=== PATIENT | male | born 1950 | race Caucasian/White ===

== ENCOUNTER → 2017-07-08 | Outpatient (CLI) | payer MEDICARE ==
--- NOTE | 2017-07-08 17:08 | US ---
EXAMINATION TYPE: US gallbladder DATE OF EXAM: 07/08/2017 COMPARISON: US 2016 CLINICAL HISTORY: Right upper quadrant pain R10.11. Abdomen pain and N/V EXAM MEASUREMENTS: Liver Length: 17.2 cm Gallbladder Wall: 0.3 cm CBD: 0.4 cm Right Kidney: 10.8 x 6.1 x 6.4 cm Pancreas: visualized portions wnl, body and tail obscured by overlying midline bowel gas Liver: measures in upper limits of normal at 17.2cm, heterogeneous echotexture without any definite lesions seen at this time, increased echogenicity throughout, increased attenuation Gallbladder: Large amount of shadowing seen in the region of the gallbladder, possible gallbladder f illed with stones Evidence for sonographic Santiago's sign: no CBD: visualized portions wnl, limited by overlying bowel gas Right Kidney: visualized portions wnl, limited by rib shadowing IMPRESSION: 1. Hepatomegaly with moderate fatty infiltration. 2. Cholelithiasis.
== END | disposition home or self-care (01) ==
LOC: RADUSWWP 07:43
PROVIDERS: ATTEND Family Medicine
DX: K80.20 Calculus of gallbladder without cholecystitis without obstruction (principal); K76.0 Fatty (change of) liver, not elsewhere classified; R16.0 Hepatomegaly, not elsewhere classified
CPT/HCPCS: 76705

== ENCOUNTER 2018-02-07 12:54 | Inpatient (IN) | payer MEDICARE ==
[2018-02-07] MEDS ORDERED: METOCLOPRAMIDE 5 MG/ML 2 ML VIAL IVP STA (13:00)
--- NOTE | 2018-02-07 13:06 | ED ---
General Adult HPI - General Chief complaint: Weakness Stated complaint: vomiting Time Seen by Provider: 02/07/18 13:01 Source: patient, EMS, RN notes reviewed Mode of arrival: EMS Limitations: no limitations - History of Present Illness Initial comments: Patient is a pleasant 67-year-old male presenting to the emergency department for some onset of not feeling well. Patient states he feels weak all over and nauseated. Patient denies any pain. Patient denies any dyspnea. No isolated area of weakness. No history of similar symptoms previously. EMS reports patient did have an episode of asystole lasting a proximally 6 seconds. Patient states he never passed out or lost consciousness. No history of similar symptoms previously. Patient feels nauseated on arrival to the emergency department. - Related Data Home Medications Medication Instructions Recorded Confirmed Aspirin 325 mg PO HS 10/24/13 02/07/18 Simvastatin [Zocor] 20 mg PO HS 10/24/13 02/07/18 Vitamin B Complex 1 tab PO DAILY 10/24/13 02/07/18 metFORMIN HCL [Glucophage] 500 mg PO BID 10/24/13 02/07/18 Omalizumab [Xolair] 375 mg SQ Q14D 08/29/14 02/07/18 Cholecalciferol [Vitamin D3] 1,000 unit PO DAILY 04/25/15 02/07/18 Dapagliflozin Propanediol [Farxiga] 10 mg PO DAILY 04/25/15 02/07/18 Garlic 1 tab PO DAILY 04/25/15 02/07/18 Fluticasone/Salmeterol [Advair 1 puff INHALATION RT-DAILY 05/20/17 02/07/18 500-50 Diskus] Losartan/Hydrochlorothiazide 1 tab PO DAILY 05/20/17 02/07/18 [Hyzaar 100-25 Tablet] Montelukast [Singulair] 10 mg PO HS 05/20/17 02/07/18 Testosterone Cypionate 200 mg IM Q14D 05/20/17 02/07/18 [Depo-Testosterone] Albuterol Nebulized [Ventolin 2.5 mg INHALATION RT-Q6H 02/07/18 02/07/18 Nebulized] Albuterol Sulfate [Proventil Hfa] 1 - 2 puff INHALATION RT-Q6H PRN 02/07/18 Atenolol [Tenormin] 50 mg PO BID 02/07/18 02/07/18 Furosemide [Lasix] 40 mg PO BID 02/07/18 02/07/18 Ipratropium Nebulized [Atrovent 0.5 mg INHALATION RT-Q6H 02/07/18 02/07/18 Nebulized] Naproxen Sodium [Aleve] 660 mg PO BID 02/07/18 02/07/18 Potassium Chloride ER [K-Dur 10] 10 meq PO DAILY 02/07/18 02/07/18 Potassium Chloride ER [K-Dur 20] 20 meq PO DAILY 02/07/18 02/07/18 glipiZIDE [Glucotrol] 1.25 mg PO BID 02/07/18 02/07/18 Allergies Allergy/AdvReac Type Severity Reaction Status Date / Time azithromycin Allergy Swelling Verified 02/07/18 13:29 Review of Systems ROS Statement: Those systems with pertinent positive or pertinent negative responses have been documented in the HPI. ROS Other: All systems not noted in ROS Statement are negative. Constitutional: Denies: fever Eyes: Denies: eye pain ENT: Denies: ear pain Respiratory: Denies: cough, dyspnea Cardiovascular: Denies: chest pain Endocrine: Reports: fatigue Gastrointestinal: Reports: nausea, vomiting. Denies: abdominal pain Genitourinary: Denies: dysuria Musculoskeletal: Denies: back pain Skin: Denies: rash Neurological: Reports: weakness (Patient feels weak all over). Denies: headache , confusion Past Medical History Past Medical History: Asthma, Hearing Disorder / Deafness, Hyperlipidemia, Hypertension, Pneumonia Additional Past Medical History / Comment(s): R and L hearing difficulty, emphysema, back pain, arthritis, R ankle fracture. Polycythemia - diagnosed in 2016 History of Any Multi-Drug Resistant Organisms: None Reported Past Surgical History: Heart Catheterization, Orthopedic Surgery, Prostate Surgery Additional Past Surgical History / Comment(s): stress test, L rotator cuff, L and R shoulder surgery Past Anesthesia/Blood Transfusion Reactions: No Reported Reaction Past Psychological History: No Psychological Hx Reported Smoking Status: Former smoker Past Alcohol Use History: Occasional Past Drug Use History: None Reported - Past Family History Father Family Medical History: Cancer, Dementia, Diabetes Mellitus Additional Family Medical History / Comment(s): parkinsons, colon cancer, prostate cancer. Father at age 82 yrs. Mother Family Medical History: Dementia, Diabetes Mellitus Additional Family Medical History / Comment(s): Mother at age 87yrs. Sister(s) Family Medical History: Diabetes Mellitus Brother(s) Family Medical History: Diabetes Mellitus General Exam Limitations: no limitations General appearance: alert, in no apparent distress Head exam: Present: atraumatic Eye exam: Present: normal appearance, PERRL, EOMI ENT exam: Present: normal oropharynx Neck exam: Present: normal inspection Respiratory exam: Present: wheezes (Mild expiratory wheeze) Cardiovascular Exam: Present: regular rate, normal rhythm Expanded Peripheral pulses: 2+: Radial (R), Radial (L), Dorsalis Pedis (R), Dorsalis Pedis (L) GI/Abdominal exam: Present: soft. Absent: tenderness Extremities exam: Present: normal inspection. Absent: pedal edema, calf tenderness Neurological exam: Present: alert, oriented X3, CN II-XII intact. Absent: motor sensory deficit Expanded Cranial nerves: EOM's Intact: Normal Motor strength exam: RUE: 5, LUE: 5, RLE: 5, LLE: 5 Eye Response: (4) open spontaneously Motor Response: (6) obeys commands Verbal Response: (5) oriented Psychiatric exam: Present: normal affect, normal mood Skin exam: Present: diaphoretic Course Vital Signs 02/07/18 02/07/18 02/07/18 12:56 14:00 14:08 Temperature 97.4 F L Pulse Rate 73 78 72 Respiratory 20 Rate Blood Pressure 131/73 O2 Sat by Pulse 93 L Oximetry 02/07/18 14:42 Temperature Pulse Rate 82 Respiratory 15 Rate Blood Pressure 142/81 O2 Sat by Pulse 98 Oximetry EKG Findings - EKG Comments: EKG Findings:: Normal sinus rhythm 73. MA 180. QRS 140. QTc 448. QTC 493. Normal axis. Right bundle branch block. Diffuse areas of T wave inversion. Previous EKG reviewed dated 12/08/2005. Medical Decision Making - Medical Decision Making Patient reevaluated and is starting to feel somewhat better. Patient and family updated on results and plan. Case was discussed in detail with Dr. Owens, who will admit his patient. Cardiology will be consulted for episode of asystole lasting 6 seconds per EMS. Family is concerned for possible seizure. Head CT will be added. - Lab Data Result diagrams: 02/07/18 13:00 02/07/18 13:00 Lab Results 02/07/18 02/07/18 02/07/18 Range/Units 13:00 13:00 13:00 WBC 8.7 (3.8-10.6) k/uL RBC 7.87 H (4.30-5.90) m/uL Hgb 15.3 (13.0-17.5) gm/dL Hct 55.5 H (39.0-53.0) % MCV 70.5 L (80.0-100.0) fL MCH 19.4 L (25.0-35.0) pg MCHC 27.5 L (31.0-37.0) g/dL RDW 19.0 H (11.5-15.5) % Plt Count 192 (150-450) k/uL Neutrophils % 77 % Lymphocytes % 14 % Monocytes % 6 % Eosinophils % 1 % Basophils % 1 % Neutrophils # 6.7 (1.3-7.7) k/uL Lymphocytes # 1.2 (1.0-4.8) k/uL Monocytes # 0.5 (0-1.0) k/uL Eosinophils # 0.1 (0-0.7) k/uL Basophils # 0.1 (0-0.2) k/uL Hypochromasia Marked Poikilocytosis Slight Anisocytosis Slight Microcytosis Marked PT (9.0-12.0) sec INR (<1.2) APTT (22.0-30.0) sec D-Dimer (<0.60) mg/L FEU Sodium 139 (137-145) mmol/L Potassium 3.9 (3.5-5.1) mmol/L Chloride 103 (98-107) mmol/L Carbon Dioxide 23 (22-30) mmol/L Anion Gap 13 mmol/L BUN 21 H (9-20) mg/dL Creatinine 1.10 (0.66-1.25) mg/dL Est GFR (CKD-EPI)AfAm 79 (>60 ml/min/1.73 sqM) Est GFR (CKD-EPI)NonAf 68 (>60 ml/min/1.73 sqM) Glucose 230 H (74-99) mg/dL Calcium 9.4 (8.4-10.2) mg/dL Magnesium 2.2 (1.6-2.3) mg/dL Total Bilirubin 1.4 H (0.2-1.3) mg/dL AST 64 H (17-59) U/L ALT 69 (21-72) U/L Alkaline Phosphatase 51 (38-126) U/L Total Creatine Kinase 57 (55-170) U/L CK-MB (CK-2) 0.9 (0.0-2.4) ng/mL CK-MB (CK-2) Rel Index 1.6 Troponin I <0.012 (0.000-0.034) ng/mL Total Protein 7.0 (6.3-8.2) g/dL Albumin 4.2 (3.5-5.0) g/dL TSH 1.680 (0.465-4.680) mIU/L Free T4 0.89 (0.78-2.19) ng/dL Free T3 pg/mL 4.2 (2.8-5.3) pg/ml 02/07/18 Range/Units 13:47 WBC (3.8-10.6) k/uL RBC (4.30-5.90) m/uL Hgb (13.0-17.5) gm/dL Hct (39.0-53.0) % MCV (80.0-100.0) fL MCH (25.0-35.0) pg MCHC (31.0-37.0) g/dL RDW (11.5-15.5) % Plt Count (150-450) k/uL Neutrophils % % Lymphocytes % % Monocytes % % Eosinophils % % Basophils % % Neutrophils # (1.3-7.7) k/uL Lymphocytes # (1.0-4.8) k/uL Monocytes # (0-1.0) k/uL Eosinophils # (0-0.7) k/uL Basophils # (0-0.2) k/uL Hypochromasia Poikilocytosis Anisocytosis Microcytosis PT 10.3 (9.0-12.0) sec INR 1.1 (<1.2) APTT 20.7 L (22.0-30.0) sec D-Dimer 0.24 (<0.60) mg/L FEU Sodium (137-145) mmol/L Potassium (3.5-5.1) mmol/L Chloride (98-107) mmol/L Carbon Dioxide (22-30) mmol/L Anion Gap mmol/L BUN (9-20) mg/dL Creatinine (0.66-1.25) mg/dL Est GFR (CKD-EPI)AfAm (>60 ml/min/1.73 sqM) Est GFR (CKD-EPI)NonAf (>60 ml/min/1.73 sqM) Glucose (74-99) mg/dL Calcium (8.4-10.2) mg/dL Magnesium (1.6-2.3) mg/dL Total Bilirubin (0.2-1.3) mg/dL AST (17-59) U/L ALT (21-72) U/L Alkaline Phosphatase (38-126) U/L Total Creatine Kinase (55-170) U/L CK-MB (CK-2) (0.0-2.4) ng/mL CK-MB (CK-2) Rel Index Troponin I (0.000-0.034) ng/mL Total Protein (6.3-8.2) g/dL Albumin (3.5-5.0) g/dL TSH (0.465-4.680) mIU/L Free T4 (0.78-2.19) ng/dL Free T3 pg/mL (2.8-5.3) pg/ml - Radiology Data Radiology results: image reviewed (Chest x-ray shows cardiomegaly and some interstitial change.) Disposition Clinical Impression: Asystole Disposition: ADMITTED IP TO THIS [facility] Is patient prescribed a controlled substance at d/c from ED?: No Referrals: Terrell Owens MD [Primary Care Provider] - 1-2 days Decision Time: 15:26
[2018-02-07] MEDS ORDERED: IPRATROPIUM-ALBUTEROL 3 ML NEB INHALATION STA (13:09)
[2018-02-07 13:21] LABS: Anisocytosis Slight; Basophils # (A) 0.1 k/uL (0-0.2); Basophils % (A) 1 %; Eosinophils # (A) 0.1 k/uL (0-0.7); Eosinophils % (A) 1 %; HGB 15.3 gm/dL (13.0-17.5); Hypochromasia Marked; Lymphocytes # (A) 1.2 k/uL (1.0-4.8); Lymphocytes % (A) 14 %; MCH 19.4 pg (25.0-35.0); MCHC 27.5 g/dL (31.0-37.0); MCV 70.5 fL (80.0-100.0); Mean Platelet Volume 6.2; Microcytosis Marked; Monocytes # (A) 0.5 k/uL (0-1.0); Monocytes % (A) 6 %; Neutrophils # (A) 6.7 k/uL (1.3-7.7); Neutrophils % (A) 77 %; Platelet Count 192 k/uL (150-450); Poikilocytosis Slight; WBC 8.7 k/uL (3.8-10.6)
[2018-02-07 13:22] LABS: HCT 55.5 % (39.0-53.0); RBC 7.87 m/uL (4.30-5.90)
[2018-02-07 13:27] LABS: Albumin 4.2 g/dL (3.5-5.0); Calcium 9.4 mg/dL (8.4-10.2); Magnesium 2.2 mg/dL (1.6-2.3); Total Bilirubin 1.4 mg/dL (0.2-1.3)
--- NOTE | 2018-02-07 13:28 | XR ---
EXAMINATION TYPE: XR chest 1V portable DATE OF EXAM: 02/07/2018 HISTORY: dysrhythmia. REFERENCE: Previous study dated 05/05/2015. FINDINGS: The heart is mildly enlarged. There is chronic interstitial change. There is some scarring at the left lung base. I do not see evidence of pneumonia or edema. IMPRESSION: 1. CARDIOMEGALY. 2. INTERSTITIAL CHANGE. 3. CHRONIC SCARRING, LEFT LUNG BASE.
[2018-02-07 13:33] LABS: Potassium 3.9 mmol/L (3.5-5.1)
[2018-02-07 13:44] LABS: T4, Free (Free Thyroxine) 0.89 ng/dL (0.78-2.19)
[2018-02-07 13:45] LABS: Creatine Kinase 57 U/L (55-170)
[2018-02-07 13:58] LABS: Creatine Kinase MB 0.9 ng/mL (0.0-2.4); Troponin I <0.012 ng/mL (0.000-0.034)
[2018-02-07 14:28] LABS: D-Dimer 0.24 mg/L FEU (<0.60); INR 1.1 (<1.2); Prothrombin Time 10.3 sec (9.0-12.0)
[2018-02-07 14:33] LABS: Partial Thromboplastin Time 20.7 sec (22.0-30.0)
[2018-02-07] MEDS ORDERED: NITROGLYCERIN SL TABS 0.4 MG TAB SUBLINGUAL PRN (15:26)
[2018-02-07] MEDS ORDERED: ASPIRIN 81 MG PO STA (15:26)
[2018-02-07 16:42] LABS: Glucose,Whole Blood 180 mg/dL (75-99)
[2018-02-07 18:03] VITALS: BMI 37.8
--- NOTE | 2018-02-07 18:24 | CT ---
EXAMINATION TYPE: CT brain wo con DATE OF EXAM: 02/07/2018 HISTORY: altered mental status CT DLP: 1105 mGycm. Automated Exposure Control for Dose Reduction was Utilized. TECHNIQUE: CT scan of the head is performed without contrast. COMPARISON: None. FINDINGS: There is no acute intracranial hemorrhage or midline shift identified. There is diffuse v entricular and sulcal prominence consistent with diffuse age-related cerebral atrophy. There is low- attenuation in the periventricular white matter consistent with chronic small vessel ischemic change. The globes are intact and the visualized sinuses are clear. IMPRESSION: No acute intracranial hemorrhage or midline shift. There is diffuse age-related cerebra l atrophy and chronic small vessel ischemic change noted.
[2018-02-07 19:47] LABS: Creatine Kinase 55 U/L (55-170)
[2018-02-07 20:00] LABS: Creatine Kinase MB 2.2 ng/mL (0.0-2.4); Troponin I <0.012 ng/mL (0.000-0.034)
[2018-02-07] MEDS: ATORVASTATIN 10 MG TAB PO SCH (20:31)
[2018-02-07] MEDS: ATENOLOL 50 MG TAB PO SCH (20:31)
[2018-02-07] MEDS ORDERED: NAPROXEN 250 MG TAB PO PRN (20:33)
[2018-02-07] MEDS ORDERED: IPRATROPIUM-ALBUTEROL 3 ML NEB INHALATION PRN (20:45)
[2018-02-07 20:56] LABS: Glucose,Whole Blood 170 mg/dL (75-99)
--- NOTE | 2018-02-07 21:50 | HP ---
HISTORY AND PHYSICAL CHIEF COMPLAINT: 67-year-old white male presents with not feeling well with fatigue, nausea, near syncope at home with severe weakness, came in by EMS who thought he had asystole lasting about 6 seconds. No prior similar episodes. Nauseated. HOME MEDICATIONS: Zocor, Glucophage, Farxiga, Advair, Singulair, Hyzaar, Ventolin, Proventil, Tenormin, Lasix, Atrovent, potassium chloride, Glucotrol. ALLERGIES: AZITHROMYCIN. REVIEW OF SYSTEMS: Fourteen point review of systems negative except for weakness, fatigue. PAST MEDICAL HISTORY: Asthma, deafness, dyslipidemia, hypertension, pneumonia, hearing difficulty, emphysema, arthritis, right ankle fracture, polycythemia. PAST SURGICAL HISTORY: Heart catheterization, orthopedic surgery, prostate surgery, left rotator cuff bilaterally, rotator cuff repair. SOCIAL HISTORY: Former smoker. FAMILY HISTORY: Father with cancer, dementia, diabetes mellitus. Mother with dementia, diabetes mellitus. Sister with diabetes mellitus. Brother diabetes mellitus. PHYSICAL EXAMINATION: Blood pressure 142/81, O2 98% on room air. Temp 97.4, O2 93% on room air. Lungs show wheezes, mild expiratory. CARDIOVASCULAR: Regular rate and rhythm. Peripheral pulses 2+ dorsalis pedis, posterior tibial, radial. GI: Soft, nontender. Abdomen is soft, nontender. EXTREMITIES: No cyanosis, clubbing, edema. Cranial nerves appear to be intact. Strength is 5/5 x4 extremities. Skin is diaphoretic. Labs are reviewed. EKG shows sinus rhythm, right bundle branch block. Diffuse T-wave inversion. We will admit the patient. Abnormal EKG. Possible asystole. Head CT scan is normal. Accu-Chek protocol. Hold his metformin. Possible heart catheterization may be needed. Continue on his home medications. Please see further orders. MMODL / IJN: [id number] /
[2018-02-07] MEDS: FUROSEMIDE 40 MG TAB PO SCH (22:22)
[2018-02-07] MEDS: ASPIRIN 325 MG TAB PO SCH (22:22)
[2018-02-07] MEDS: MONTELUKAST 10 MG TAB PO SCH (22:22)
[2018-02-08 01:32] LABS: Cholesterol 103 mg/dL (<200); HDL Cholesterol 28 mg/dL (40-60); LDL Cholesterol,Calculated 32 mg/dL (0-99); Triglycerides 215 mg/dL (<150)
[2018-02-08] MEDS ORDERED: ALBUTEROL NEBULIZED 2.5 MG/3 ML INHALATION SCH (02:00)
[2018-02-08] MEDS ORDERED: IPRATROPIUM 0.5 MG/2.5 ML NEBU INHALATION SCH (02:00)
[2018-02-08 02:08] LABS: Creatine Kinase 75 U/L (55-170)
[2018-02-08 02:21] LABS: Troponin I <0.012 ng/mL (0.000-0.034)
[2018-02-08 02:25] LABS: Creatine Kinase MB 3.8 ng/mL (0.0-2.4)
[2018-02-08 05:59] LABS: Glucose,Whole Blood 133 mg/dL (75-99)
[2018-02-08] MEDS: ASPIRIN 325 MG TAB PO SCH ×2 (07:56→19:50)
[2018-02-08] MEDS: LOSARTAN-HCTZ 50-12.5 MG 1 EACH TAB PO SCH (07:56)
[2018-02-08] MEDS: FUROSEMIDE 40 MG TAB PO SCH ×2 (07:56→19:51)
[2018-02-08] MEDS: POTASSIUM CHLORIDE ER 10 MEQ TAB.ER.PRT PO SCH (07:56)
[2018-02-08] MEDS: ATENOLOL 50 MG TAB PO SCH ×2 (07:56→19:50)
[2018-02-08] MEDS: IPRATROPIUM-ALBUTEROL 3 ML NEB INHALATION SCH ×4 (08:03→19:56)
--- NOTE | 2018-02-08 08:31 | P.CRDCN ---
History of Present Illness Consult date: 02/08/18 Requesting physician: Terrell Owens Reason for Consult (text): This is a 6 there is one EKG in the chart from EMS that shows a normal sinus rhythm with first-degree AV block and right bundle branch block pattern, EKG performed on arrival here shows normal sinus rhythm with first-degree AV block and right bundle branch block pattern. 7-year-old gentleman with known history of hypertension, diabetes, hyperlipidemia, prior history of smoking, COPD, hx of prior stent placement several years ago, follows with Dr Lyman in the officewho presented to the hospital with symptoms of nausea and vomiting with associated weakness, dizziness and lightheadedness. According to the patient, he states that he went to [employer] in the morning, he had a few things to eat after [employer] and went to lie down. Shortly thereafter he awoke with severe nausea and vomiting and felt extremely weak and dizzy. EMS was called, according to the ER report, patient was noted to have an episode of asystole while in the EMS, no documentation of this in the chart is currently unavailable, there is no EMS report or EKG from the EMS. Patient does state however that if he has had 2 similar episodes to this in the past first one being in June, neither of these times. He states he passed out, however felt close to passing out. One EKG from the EMS located in the chart, shows that the patient is in a normal sinus rhythm with first-degree AV block and right bundle branch block pattern, EKG performed in the ER on arrival here shows a normal sinus rhythm with a right bundle branch block pattern and first- degree AV block. Chest x-ray shows cardiomegaly with interstitial change and chronic scarring in the left lung base. CAT scan of the brain does not reveal any acute intracranial hemorrhage or midline shift, there is diffuse age- related cerebral atrophy and chronic small vessel ischemic change noted. Blood pressure on arrival here 130/70 with a heart rate in the 70s, 93% on 2 L of oxygen. White blood cell count 8.7, hemoglobin 15.3, platelet count 192. D- dimer 0.24. Sodium 139, potassium 3.9, BUN 21, creatinine 1.1. Troponins have been negative 3, TSH level is normal. At the time of my examination this morning, patient feels well, denies any nausea or vomiting, no dizziness or lightheadedness. Past Medical History Past Medical History: Asthma, COPD, Diabetes Mellitus, Hearing Disorder / Deafness, Hyperlipidemia, Hypertension, Pneumonia, Prostate Disorder Additional Past Medical History / Comment(s): R and L hearing difficulty, emphysema, back pain, arthritis, R ankle fracture. Polycythemia - diagnosed in 2016 History of Any Multi-Drug Resistant Organisms: None Reported Past Surgical History: Heart Catheterization, Orthopedic Surgery, Prostate Surgery Additional Past Surgical History / Comment(s): stress test, L rotator cuff, L and R shoulder surgery. Prostate cancer Past Anesthesia/Blood Transfusion Reactions: No Reported Reaction Past Psychological History: No Psychological Hx Reported Smoking Status: Former smoker Past Alcohol Use History: Occasional Additional Past Alcohol Use History / Comment(s): Pt started smoking in 1966 and quit in 1990. He was a 3 ppd smoker. Past Drug Use History: None Reported - Past Family History Father Family Medical History: Cancer, Dementia, Diabetes Mellitus Additional Family Medical History / Comment(s): parkinsons, colon cancer, prostate cancer. Father at age 82 yrs. Mother Family Medical History: Dementia, Diabetes Mellitus Additional Family Medical History / Comment(s): Mother at age 87yrs. Sister(s) Family Medical History: Diabetes Mellitus Brother(s) Family Medical History: Diabetes Mellitus Medications and Allergies Home Medications Medication Instructions Recorded Confirmed Type Aspirin 325 mg PO HS 10/24/13 02/07/18 History Simvastatin [Zocor] 20 mg PO HS 10/24/13 02/07/18 History Vitamin B Complex 1 tab PO DAILY 10/24/13 02/07/18 History metFORMIN HCL [Glucophage] 500 mg PO AC-BRKFST 10/24/13 02/07/18 History Omalizumab [Xolair] 375 mg SQ Q14D 08/29/14 02/07/18 History Cholecalciferol [Vitamin D3] 1,000 unit PO DAILY 04/25/15 02/07/18 History Dapagliflozin Propanediol [Farxiga] 10 mg PO DAILY 04/25/15 02/07/18 History Garlic 1 tab PO DAILY 04/25/15 02/07/18 History Fluticasone/Salmeterol [Advair 1 puff INHALATION RT-DAILY 05/20/17 02/07/18 History 500-50 Diskus] Losartan/Hydrochlorothiazide 1 tab PO DAILY 05/20/17 02/07/18 History [Hyzaar 100-25 Tablet] Montelukast [Singulair] 10 mg PO HS 05/20/17 02/07/18 History Testosterone Cypionate 200 mg IM Q14D 05/20/17 02/07/18 History [Depo-Testosterone] Albuterol Nebulized [Ventolin 2.5 mg INHALATION RT-Q6H 02/07/18 02/07/18 History Nebulized] Albuterol Sulfate [Proventil Hfa] 1 - 2 puff INHALATION RT-Q6H PRN 02/07/18 History Atenolol [Tenormin] 50 mg PO BID 02/07/18 02/07/18 History Furosemide [Lasix] 40 mg PO BID 02/07/18 02/07/18 History Ipratropium Nebulized [Atrovent 0.5 mg INHALATION RT-Q6H 02/07/18 02/07/18 History Nebulized] Naproxen Sodium [Aleve] 660 mg PO BID PRN 02/07/18 02/07/18 History Potassium Chloride ER [K-Dur 10] 10 meq PO DAILY 02/07/18 02/07/18 History Potassium Chloride ER [K-Dur 20] 20 meq PO DAILY 02/07/18 02/07/18 History glipiZIDE [Glucotrol] 1.25 mg PO AC-BRKFST 02/07/18 02/07/18 History Allergies Allergy/AdvReac Type Severity Reaction Status Date / Time azithromycin Allergy Swelling Verified 02/07/18 13:29 Physical Exam Vitals: Vital Signs Temp Pulse Pulse Resp BP BP Pulse Ox 02/08/18 07:47 97.4 F L 82 18 126/76 94 L 02/08/18 04:00 97.7 F 73 16 126/73 94 L 02/08/18 00:00 98.0 F 90 18 134/84 93 L 02/07/18 20:20 96.6 F L 95 18 141/87 92 L 02/07/18 15:58 97.5 F L 91 18 140/70 95 02/07/18 15:48 96.6 F L 82 20 96 02/07/18 14:42 82 15 142/81 98 02/07/18 14:08 72 02/07/18 14:00 78 02/07/18 12:56 97.4 F L 73 20 131/73 93 L Intake and Output 02/07/18 02/08/18 02/08/18 22:59 06:59 14:59 Intake Total 20 Output Total 800 300 Balance -780 -300 Intake: IV 20 Invasive Line 1 10 Invasive Line 2 10 Output: Urine 800 300 Other: Voiding Method Urinal Urinal Weight 119.5 kg 115.4 kg PHYSICAL EXAMINATION: GENERAL: 67-year-old gentleman in no acute distress at the time of my examination HEENT: Head is atraumatic, normocephalic. Pupils equal, round. Sclera anicteric. Conjunctiva are clear. Mucous membranes of the mouth are moist. Neck is supple. There is no elevated jugular venous pressure.] bruit is heard. HEART EXAMINATION: Heart S1, S2 normal. No murmur or gallop heard. CHEST EXAMINATION: Lungs are clear to auscultation and precussion. No chest wall tenderness is noted on palpation or with deep breathing. ABDOMEN: Soft, nontender. Bowel sounds are heard. No organomegaly noted. EXTREMITIES: 2+ peripheral pulses with no evidence of peripheral edema and no calf tenderness noted. NEUROLOGIC patient is awake, alert and oriented ?-3. . Results 02/07/18 13:00 02/09/18 10:10 Cardiac Enzymes 02/07/18 02/07/18 02/07/18 Range/Units 13:00 13:00 19:08 AST 64 H (17-59) U/L CK-MB (CK-2) 0.9 2.2 (0.0-2.4) ng/mL Troponin I <0.012 <0.012 (0.000-0.034) ng/mL 02/08/18 Range/Units 01:14 AST (17-59) U/L CK-MB (CK-2) 3.8 H* (0.0-2.4) ng/mL Troponin I <0.012 (0.000-0.034) ng/mL Coagulation 02/07/18 Range/Units 13:47 PT 10.3 (9.0-12.0) sec APTT 20.7 L (22.0-30.0) sec Lipids 02/07/18 Range/Units 13:00 Triglycerides 215 H (<150) mg/dL Cholesterol 103 (<200) mg/dL HDL Cholesterol 28 L (40-60) mg/dL CBC 02/07/18 Range/Units 13:00 WBC 8.7 (3.8-10.6) k/uL RBC 7.87 H (4.30-5.90) m/uL Hgb 15.3 (13.0-17.5) gm/dL Hct 55.5 H (39.0-53.0) % Plt Count 192 (150-450) k/uL Comprehensive Metabolic Panel 02/07/18 Range/Units 13:00 Sodium 139 (137-145) mmol/L Potassium 3.9 (3.5-5.1) mmol/L Chloride 103 (98-107) mmol/L Carbon Dioxide 23 (22-30) mmol/L BUN 21 H (9-20) mg/dL Creatinine 1.10 (0.66-1.25) mg/dL Glucose 230 H (74-99) mg/dL Calcium 9.4 (8.4-10.2) mg/dL AST 64 H (17-59) U/L ALT 69 (21-72) U/L Alkaline Phosphatase 51 (38-126) U/L Total Protein 7.0 (6.3-8.2) g/dL Albumin 4.2 (3.5-5.0) g/dL Current Medications Generic Name Dose Route Start Last Admin Trade Name Freq PRN Reason Stop Dose Admin Albuterol/Ipratropium 3 ml 02/08/18 08:00 02/08/18 08:03 Duoneb 0.5 Mg-3 Mg/3 Ml Soln INHALATION 3 ml RT-QID MEKHI Administration Albuterol/Ipratropium 3 ml 02/07/18 20:45 Duoneb 0.5 Mg-3 Mg/3 Ml Soln INHALATION RT-Q2H PRN Shortness Of Breath Or Wheezing Aspirin 325 mg 02/08/18 09:00 02/08/18 07:56 Aspirin PO 325 mg DAILY MEKHI Administration Aspirin 325 mg 02/07/18 21:00 02/07/18 22:22 Aspirin PO Not Given [facility] Atenolol 50 mg 02/07/18 21:00 02/08/18 07:56 Tenormin PO 50 mg BID MEKHI Administration Atorvastatin Calcium 10 mg 02/07/18 21:00 02/07/18 20:31 Lipitor PO 10 mg HS MEKHI Administration Budesonide/Formoterol Fumarate 2 puff 02/08/18 08:00 Symbicort 160-4.5 Mcg Inhaler INHALATION RT-BID MEKHI Furosemide 40 mg 02/07/18 21:00 02/08/18 07:56 Lasix PO 40 mg BID MEKHI Administration Glipizide 1.25 mg 02/08/18 07:30 Glucotrol PO AC-BRKFST MEKHI HCTZ/Losartan Potassium 2 each 02/08/18 09:00 02/08/18 07:56 Hyzaar 50-12.5 PO 2 each DAILY MEKHI Administration Montelukast Sodium 10 mg 02/07/18 21:00 02/07/18 22:22 Singulair PO 10 mg HS MEKHI Administration Naproxen 500 mg 02/07/18 20:33 Naprosyn PO BID PRN Pain Nitroglycerin 0.4 mg 02/07/18 15:26 Nitrostat SUBLINGUAL Q5M PRN Chest Pain Potassium Chloride 10 meq 02/08/18 09:00 02/08/18 07:56 K-Dur 10 PO 10 meq DAILY MEKHI Administration Intake and Output 02/07/18 02/08/18 02/08/18 22:59 06:59 14:59 Intake Total 20 Output Total 800 300 Balance -780 -300 Intake: IV 20 Invasive Line 1 10 Invasive Line 2 10 Output: Urine 800 300 Other: Voiding Method Urinal Urinal Weight 119.5 kg 115.4 kg 02/07/18 13:00 02/07/18 13:00 EKG Interpretations (text) EKG shows a normal sinus rhythm with first-degree AV block and right bundle branch block pattern Assessment and Plan Plan: Assessment and plan #1 symptoms of nausea and vomiting with associated dizziness and weakness, no clear-cut evidence of syncope, questionable asystole in the ambulance. EKG shows a normal sinus rhythm with right bundle branch block pattern, first- degree AV block. #2 hypertension #3 hyperlipidemia #4 diabetes #5 COPD #6 prior history of smoking Plan We will obtain an echocardiogram with Doppler study. Continue to monitor for any significant bradycardia arrhythmias or pauses. Patient did undergo gallbladder ultrasound in June of this year which did reveal evidence of hepatomegaly with moderate fatty infiltration and cholelithiasis. Mild abnormality in AST and total bilirubin this morning. Need to rule out the possibility of gallbladder causing some of the symptoms. Recommend surgical evaluation. We will also schedule the patient for a Lexiscan stress test tomorrow and continue to monitor. Further recommendations to follow. DNP note has been reviewed, I agree with a documented findings and plan of care. Patient was seen and examined.
[2018-02-08] MEDS ORDERED: NON-FORMULARY DRUG (Dapagliflozin Propanediol [Farxiga] 10 MG) PO SCH (09:00)
--- NOTE | 2018-02-08 09:18 | PN ---
PROGRESS NOTE SUBJECTIVE: This is a 67-year-old white male with 6 second asystole response, who was dizzy, lightheaded for 4-6 hours yesterday after drinking orange juice and eating a chocolate donut, possibly sugar related, but due to prolonged dizziness and weakness, he was admitted to the hospital and monitored. Awaiting Cardiology consult to evaluate for possible cardiac arrhythmia. His pulse today is 80 and regular. CARDIOVASCULAR: S1, S2. Lungs are clear. GI: Soft. INTEGUMENT: Intact. He is feeling a little bit better today, he states back to his normal self. ASSESSMENT: 1. Asystole. 2. Possible arrhythmia. 3. Suspect hyperglycemia with hypoglycemic response. 4. Obesity. 5. Polycythemia. Please see further orders, await Cardiology recommendation. MMODL / IJN: [id number] /
[2018-02-08 11:36] LABS: Glucose,Whole Blood 162 mg/dL (75-99)
[2018-02-08 16:50] LABS: Glucose,Whole Blood 183 mg/dL (75-99)
[2018-02-08 17:51] LABS: Hemoglobin A1C 7.6 % (4.0-6.0)
[2018-02-08] MEDS: ATORVASTATIN 10 MG TAB PO SCH (19:50)
[2018-02-08] MEDS: MONTELUKAST 10 MG TAB PO SCH (19:51)
[2018-02-08 20:43] LABS: Glucose,Whole Blood 164 mg/dL (75-99)
[2018-02-08] MEDS: INSULIN ASPART 100 UNIT/ML 1 ML 10 ML VIAL SQ SCH (21:29)
[2018-02-09 06:07] LABS: Glucose,Whole Blood 131 mg/dL (75-99)
[2018-02-09] MEDS: INSULIN ASPART 100 UNIT/ML 1 ML 10 ML VIAL SQ SCH ×4 (07:23→21:42)
[2018-02-09] MEDS: IPRATROPIUM-ALBUTEROL 3 ML NEB INHALATION SCH ×4 (07:59→20:33)
[2018-02-09] MEDS ORDERED: AMINOPHYLLINE 500 MG/20 ML VIAL IV PRN (09:53)
[2018-02-09] MEDS ORDERED: REGADENOSON 0.4 MG/5 ML SYRINGE IV ONE (09:53)
[2018-02-09 10:35] LABS: Albumin 3.9 g/dL (3.5-5.0); Calcium 9.1 mg/dL (8.4-10.2); Potassium 3.3 mmol/L (3.5-5.1); Total Bilirubin 1.7 mg/dL (0.2-1.3); Total Protein 6.6 g/dL (6.3-8.2)
[2018-02-09 12:25] LABS: Glucose,Whole Blood 148 mg/dL (75-99)
[2018-02-09] MEDS: LOSARTAN-HCTZ 50-12.5 MG 1 EACH TAB PO SCH (12:27)
[2018-02-09] MEDS: FUROSEMIDE 40 MG TAB PO SCH ×2 (12:27→21:42)
[2018-02-09] MEDS: POTASSIUM CHLORIDE ER 10 MEQ TAB.ER.PRT PO SCH (12:27)
[2018-02-09] MEDS: ASPIRIN 325 MG TAB PO SCH ×2 (12:27→21:42)
[2018-02-09] MEDS: ATENOLOL 50 MG TAB PO SCH ×2 (12:27→21:42)
--- NOTE | 2018-02-09 12:38 | P.PN ---
Subjective Progress Note Date: 02/09/18 This is a 6 there is one EKG in the chart from EMS that shows a normal sinus rhythm with first-degree AV block and right bundle branch block pattern, EKG performed on arrival here shows normal sinus rhythm with first-degree AV block and right bundle branch block pattern. 7-year-old gentleman with known history of hypertension, diabetes, hyperlipidemia, prior history of smoking, COPD, who presented to the hospital with symptoms of nausea and vomiting with associated weakness, dizziness and lightheadedness. According to the patient, he states that he went to [employer] in the morning, he had a few things to eat after [employer] and went to lie down. Shortly thereafter he awoke with severe nausea and vomiting and felt extremely weak and dizzy. EMS was called, according to the ER report, patient was noted to have an episode of asystole while in the EMS, no documentation of this in the chart is currently unavailable, there is no EMS report or EKG from the EMS. Patient does state however that if he has had 2 similar episodes to this in the past first one being in June, neither of these times. He states he passed out, however felt close to passing out. One EKG from the EMS located in the chart, shows that the patient is in a normal sinus rhythm with first-degree AV block and right bundle branch block pattern, EKG performed in the ER on arrival here shows a normal sinus rhythm with a right bundle branch block pattern and first- degree AV block. Chest x-ray shows cardiomegaly with interstitial change and chronic scarring in the left lung base. CAT scan of the brain does not reveal any acute intracranial hemorrhage or midline shift, there is diffuse age- related cerebral atrophy and chronic small vessel ischemic change noted. Blood pressure on arrival here 130/70 with a heart rate in the 70s, 93% on 2 L of oxygen. White blood cell count 8.7, hemoglobin 15.3, platelet count 192. D- dimer 0.24. Sodium 139, potassium 3.9, BUN 21, creatinine 1.1. Troponins have been negative 3, TSH level is normal. At the time of my examination this morning, patient feels well, denies any nausea or vomiting, no dizziness or lightheadedness. 02/09/2018 Patient seen and examined this morning, no pauses were noted on the monitor. Blood pressure 134/80 heart rate in the 70s to 80s, and on 2 L of oxygen. Sodium 138, potassium 3.3, BUN 21, creatinine 1.0, total bilirubin 1.7 today up from 1.4 yesterday. AST normal today. Echocardiogram with Doppler study remains pending. Patient also is scheduled today to undergo a Lexiscan stress test. Objective - Vital Signs Vital signs: Vital Signs Temp 97.4 F L 02/09/18 07:43 Pulse 84 02/09/18 08:07 Resp 16 02/09/18 08:00 BP 134/80 02/09/18 07:43 Pulse Ox 92 L 02/09/18 07:43 Intake & Output 02/08/18 02/09/18 02/09/18 18:59 06:59 18:59 Intake Total 476 Output Total 1550 Balance 476 -1550 Weight 116.6 kg 116.573 kg Intake: Oral 476 Output: Urine 1550 Other: Voiding Method Urinal Urinal Urinal # Voids 1 1 - Exam PHYSICAL EXAMINATION: GENERAL: 67-year-old gentleman in no acute distress at the time of my examination HEENT: Head is atraumatic, normocephalic. Pupils equal, round. Sclera anicteric. Conjunctiva are clear. Mucous membranes of the mouth are moist. Neck is supple. There is no elevated jugular venous pressure.] bruit is heard. HEART EXAMINATION: Heart S1, S2 normal. No murmur or gallop heard. CHEST EXAMINATION: Lungs are clear to auscultation and precussion. No chest wall tenderness is noted on palpation or with deep breathing. ABDOMEN: Soft, nontender. Bowel sounds are heard. No organomegaly noted. EXTREMITIES: 2+ peripheral pulses with no evidence of peripheral edema and no calf tenderness noted. NEUROLOGIC patient is awake, alert and oriented ?-3. - Labs CBC & Chem 7: 02/07/18 13:00 02/09/18 10:10 Labs: Abnormal Lab Results - Last 24 Hours (Table) 02/07/18 02/08/18 02/08/18 Range/Units 13:00 16:48 20:42 Potassium (3.5-5.1) mmol/L BUN (9-20) mg/dL Glucose (74-99) mg/dL POC Glucose (mg/dL) 183 H 164 H (75-99) mg/dL Hemoglobin A1c 7.6 H (4.0-6.0) % Total Bilirubin (0.2-1.3) mg/dL 02/09/18 02/09/18 02/09/18 Range/Units 06:05 10:10 12:24 Potassium 3.3 L (3.5-5.1) mmol/L BUN 21 H (9-20) mg/dL Glucose 157 H (74-99) mg/dL POC Glucose (mg/dL) 131 H 148 H (75-99) mg/dL Hemoglobin A1c (4.0-6.0) % Total Bilirubin 1.7 H (0.2-1.3) mg/dL Assessment and Plan Plan: Assessment and plan #1 symptoms of nausea and vomiting with associated dizziness and weakness, no clear-cut evidence of syncope, questionable asystole in the ambulance. EKG shows a normal sinus rhythm with right bundle branch block pattern, first- degree AV block. #2 hypertension #3 hyperlipidemia #4 diabetes #5 COPD #6 prior history of smoking Plan We will review echocardiogram with Doppler study. Continue to monitor for any significant bradycardia arrhythmias or pauses. Patient did undergo gallbladder ultrasound in June of this year which did reveal evidence of hepatomegaly with moderate fatty infiltration and cholelithiasis. We will also review the patient's results of Lexiscan stress test of today. If the echo and the stress test are normal, and patient has been evaluated for abnormal bilirubin, on discharge we recommend patient have a 30 day event monitor. DNP note has been reviewed, I agree with a documented findings and plan of care. Patient was seen and examined.
--- NOTE | 2018-02-09 12:51 | NM ---
EXAMINATION TYPE: NM stress lexiscan cardiolite DATE OF EXAM: 02/09/2018 COMPARISON: Chest x-ray 02/07/2018 HISTORY: Chest pain, Dysrhythmia, cardiomegaly TECHNIQUE: After the intravenous administration of 10.97 mCi Tc 99m Sestamibi - Cardiolite resting S PECT images acquired 45 minutes post injection. The patient received 0.4mg Lexiscan, 25.1 mCi Tc 99m Sestamibi - Stress images obtained [address] injection FINDINGS: Review of stress and rest SPECT images demonstrates decreased radio pharmaceutical uptake along the i nferolateral left ventricle on stress as compared to rest images. Gated analysis shows normal wall mo tion with an estimated left ventricular ejection fraction of 55 %. IMPRESSION: Pharmacologically induced left ventricular myocardial ischemia.
--- NOTE | 2018-02-09 12:54 | P.GSCN ---
History of Present Illness Consult date: 02/09/18 Reason for Consult: Gallbladder History of present illness: 67-year-old presented to the emergency room for generalized weakness nausea. Patient stated the sensation has been ongoing for the past several weeks getting more symptomatic. Patient activated the EMS system EMS report indicates patient had an episode of asystole lasting about 6 seconds patient denied passing out or losing consciousness patient denied having any similar episodes . Patient stated he felt a nausea sensation patient is denying any abdominal pain. Patient states he is bothered sometimes by a heartburn sensation takes [id number] [place] which does offer relief. Currently patients being followed by cardiology service just returned from having a Lexiscan results are pending Review of Systems Essentially unremarkable except as mentioned in the present illness Past Medical History Past Medical History: Asthma, COPD, Diabetes Mellitus, Hearing Disorder / Deafness, Hyperlipidemia, Hypertension, Pneumonia, Prostate Disorder Additional Past Medical History / Comment(s): R and L hearing difficulty, emphysema, back pain, arthritis, R ankle fracture. Polycythemia - diagnosed in 2015 History of Any Multi-Drug Resistant Organisms: None Reported Past Surgical History: Heart Catheterization, Orthopedic Surgery, Prostate Surgery Additional Past Surgical History / Comment(s): stress test, L rotator cuff, L and R shoulder surgery. Prostate cancer Past Anesthesia/Blood Transfusion Reactions: No Reported Reaction Past Psychological History: No Psychological Hx Reported Smoking Status: Former smoker Past Alcohol Use History: Occasional Additional Past Alcohol Use History / Comment(s): Pt started smoking in 1966 and quit in 1990. He was a 3 ppd smoker. Past Drug Use History: None Reported - Past Family History Father Family Medical History: Cancer, Dementia, Diabetes Mellitus Additional Family Medical History / Comment(s): parkinsons, colon cancer, prostate cancer. Father at age 82 yrs. Mother Family Medical History: Dementia, Diabetes Mellitus Additional Family Medical History / Comment(s): Mother at age 87yrs. Sister(s) Family Medical History: Diabetes Mellitus Brother(s) Family Medical History: Diabetes Mellitus Medications and Allergies Home Medications Medication Instructions Recorded Confirmed Type Aspirin 325 mg PO HS 10/24/13 02/07/18 History Simvastatin [Zocor] 20 mg PO HS 10/24/13 02/07/18 History Vitamin B Complex 1 tab PO DAILY 10/24/13 02/07/18 History metFORMIN HCL [Glucophage] 500 mg PO AC-BRKFST 10/24/13 02/07/18 History Omalizumab [Xolair] 375 mg SQ Q14D 08/29/14 02/07/18 History Cholecalciferol [Vitamin D3] 1,000 unit PO DAILY 04/25/15 02/07/18 History Dapagliflozin Propanediol [Farxiga] 10 mg PO DAILY 04/25/15 02/07/18 History Garlic 1 tab PO DAILY 04/25/15 02/07/18 History Fluticasone/Salmeterol [Advair 1 puff INHALATION RT-DAILY 05/20/17 02/07/18 History 500-50 Diskus] Losartan/Hydrochlorothiazide 1 tab PO DAILY 05/20/17 02/07/18 History [Hyzaar 100-25 Tablet] Montelukast [Singulair] 10 mg PO HS 05/20/17 02/07/18 History Testosterone Cypionate 200 mg IM Q14D 05/20/17 02/07/18 History [Depo-Testosterone] Albuterol Nebulized [Ventolin 2.5 mg INHALATION RT-Q6H 02/07/18 02/07/18 History Nebulized] Albuterol Sulfate [Proventil Hfa] 1 - 2 puff INHALATION RT-Q6H PRN 02/07/18 History Atenolol [Tenormin] 50 mg PO BID 02/07/18 02/07/18 History Furosemide [Lasix] 40 mg PO BID 02/07/18 02/07/18 History Ipratropium Nebulized [Atrovent 0.5 mg INHALATION RT-Q6H 02/07/18 02/07/18 History Nebulized] Naproxen Sodium [Aleve] 660 mg PO BID PRN 02/07/18 02/07/18 History Potassium Chloride ER [K-Dur 10] 10 meq PO DAILY 02/07/18 02/07/18 History Potassium Chloride ER [K-Dur 20] 20 meq PO DAILY 02/07/18 02/07/18 History glipiZIDE [Glucotrol] 1.25 mg PO AC-BRKFST 02/07/18 02/07/18 History Allergies Allergy/AdvReac Type Severity Reaction Status Date / Time azithromycin Allergy Swelling Verified 02/07/18 13:29 Surgical - Exam Vital Signs Temp Pulse Resp BP Pulse Ox 97.4 F L 73 20 131/73 93 L 02/07/18 12:56 02/07/18 12:56 02/07/18 12:56 02/07/18 12:56 02/07/18 12:56 GENERAL APPEARANCE: patient is alert, oriented x 3 , in no acute distress. VITAL SIGNS: Reviewed HEENT: Head is normocephalic and atraumatic. Pupils are equal and reactive. The nares are patent. Oropharynx is clear without lesions. NECK: Supple without lymphadenopathy. Traches midline. HEART: S1, S2. Regular rate and rhythm. No murmur monitor sinus denies chest pain when questioning LUNGS: No crackles or wheezes are heard. On room air no shortness of breath ABDOMEN: Soft, nontender, nondistended with good bowel sounds. No peritoneal signs. No palpable organomegaly or masses. EXTREMITIES: Normal skin color and turgor. No cyanosis, rash, ulceration, clubbing or edema. Radial pedal pulses are 2/4 bilaterally. NEUROLOGICAL: No focal deficits. Strength and sensation are grossly intact. Results - Labs 02/07/18 13:00 02/09/18 10:10 Abnormal Lab Results - Last 24 Hours (Table) 02/07/18 02/08/18 02/08/18 Range/Units 13:00 16:48 20:42 Potassium (3.5-5.1) mmol/L BUN (9-20) mg/dL Glucose (74-99) mg/dL POC Glucose (mg/dL) 183 H 164 H (75-99) mg/dL Hemoglobin A1c 7.6 H (4.0-6.0) % Total Bilirubin (0.2-1.3) mg/dL 02/09/18 02/09/18 02/09/18 Range/Units 06:05 10:10 12:24 Potassium 3.3 L (3.5-5.1) mmol/L BUN 21 H (9-20) mg/dL Glucose 157 H (74-99) mg/dL POC Glucose (mg/dL) 131 H 148 H (75-99) mg/dL Hemoglobin A1c (4.0-6.0) % Total Bilirubin 1.7 H (0.2-1.3) mg/dL Diabetes panel 02/07/18 02/09/18 Range/Units 13:00 10:10 Sodium 138 (137-145) mmol/L Potassium 3.3 L (3.5-5.1) mmol/L Chloride 99 (98-107) mmol/L Carbon Dioxide 30 (22-30) mmol/L BUN 21 H (9-20) mg/dL Creatinine 1.06 (0.66-1.25) mg/dL Glucose 157 H (74-99) mg/dL Hemoglobin A1c 7.6 H (4.0-6.0) % Calcium 9.1 (8.4-10.2) mg/dL AST 47 (17-59) U/L ALT 65 (21-72) U/L Alkaline Phosphatase 49 (38-126) U/L Total Protein 6.6 (6.3-8.2) g/dL Albumin 3.9 (3.5-5.0) g/dL Calcium panel 02/09/18 Range/Units 10:10 Calcium 9.1 (8.4-10.2) mg/dL Albumin 3.9 (3.5-5.0) g/dL Pituitary panel 02/09/18 Range/Units 10:10 Sodium 138 (137-145) mmol/L Potassium 3.3 L (3.5-5.1) mmol/L Chloride 99 (98-107) mmol/L Carbon Dioxide 30 (22-30) mmol/L BUN 21 H (9-20) mg/dL Creatinine 1.06 (0.66-1.25) mg/dL Glucose 157 H (74-99) mg/dL Calcium 9.1 (8.4-10.2) mg/dL Adrenal panel 02/09/18 Range/Units 10:10 Sodium 138 (137-145) mmol/L Potassium 3.3 L (3.5-5.1) mmol/L Chloride 99 (98-107) mmol/L Carbon Dioxide 30 (22-30) mmol/L BUN 21 H (9-20) mg/dL Creatinine 1.06 (0.66-1.25) mg/dL Glucose 157 H (74-99) mg/dL Calcium 9.1 (8.4-10.2) mg/dL Total Bilirubin 1.7 H (0.2-1.3) mg/dL AST 47 (17-59) U/L ALT 65 (21-72) U/L Alkaline Phosphatase 49 (38-126) U/L Total Protein 6.6 (6.3-8.2) g/dL Albumin 3.9 (3.5-5.0) g/dL Assessment and Plan Assessment: Impression Prior to arrival possible episode per EMS of [place] Ultrasound done June 2017 cholelithiasis large amount of shadowing seen in the region of the gallbladder possible gallbladder filled with stones Hypertension Symptomatic nausea vomiting dizziness lightheadedness no clear cut evidence of a syncopal episode Plan Patient could be followed in an outpatient setting next week for the gallstones gallbladder once patient cardiology status stable Pain control IV hydration Will follow with you From a surgical perspective is felt to be medically stable to be discharged defer to the attending to the timing and cardiology's workup pending No evidence of an acute surgical abdomen at this time Plan for outpatient follow-up for possible lap cholecystectomy when medically cleared Surgical consultation note dictated for Dr. sims The above impression and plan of care have been discussed and directed by signing physician. Maria Del Rosario Real nurse practitioner acting as scribe for signing physician.
--- NOTE | 2018-02-09 13:41 | EST ---
EXERCISE STRESS DATE OF SERVICE: 02/09/2018 AGE: 67 SEX: Male HT: 70" WT: 257 pounds PROTOCOL: Lexiscan Cardiolite STAGE: DURATION OF EXERCISE: HEART RATE REST: 81 BLOOD PRESSURE REST: 207/92 MAXIMUM HEART RATE ACHIEVED: 98 MAXIMUM BLOOD PRESSURE: 207/92 85% MPHR: 100% MPHR: METS: INDICATIONS: Shortness of breath. CLINICAL INFORMATION: Baseline rhythm is sinus mechanism, rate of 81, right bundle branch block. Baseline blood pressure 207/92 mmHg. Patient received injection of Lexiscan. Electrocardiographic monitoring revealed no evidence of diagnostic ischemic ST deviation. Cardiolite was injected per protocol. CONCLUSION: 1. Nondiagnostic electrocardiographic stress testing. 2. Nuclear images will be reported separately. MMODL / IJN: [id number] /
[2018-02-09] MEDS ORDERED: ALPRAZolam 0.25 MG TAB PO PRN (15:13)
[2018-02-09] MEDS ORDERED: SODIUM CHLORIDE 0.9% 1,000 ML in EMPTY BAG 1 BAG IV ONE (15:13)
[2018-02-09] MEDS ORDERED: ALPRAZolam 0.5 MG TAB PO PRN (15:13)
[2018-02-09] MEDS ORDERED: ASPIRIN 325 MG TAB PO STA (15:13)
[2018-02-09] MEDS ORDERED: NITROGLYCERIN SL TABS 0.4 MG TAB SUBLINGUAL PRN (15:13)
[2018-02-09] MEDS ORDERED: ATORVASTATIN 80 MG TAB PO STA (15:13)
[2018-02-09] MEDS ORDERED: Potassium Replacement Protocol 1 EACH MISC MISCELLANE PRN (15:43)
[2018-02-09] MEDS: SYMBICORT 160-4.5 MCG INHALER INHALATION SCH (16:48)
[2018-02-09 17:05] LABS: Glucose,Whole Blood 174 mg/dL (75-99)
[2018-02-09] MEDS: POTASSIUM CHLORIDE ER 20 MEQ TAB.ER PO SCH ×2 (17:24→19:02)
[2018-02-09 20:51] LABS: Glucose,Whole Blood 149 mg/dL (75-99)
[2018-02-09] MEDS: MONTELUKAST 10 MG TAB PO SCH (21:42)
[2018-02-09] MEDS: ATORVASTATIN 10 MG TAB PO SCH (21:43)
--- NOTE | 2018-02-09 23:20 | PN ---
PROGRESS NOTE SUBJECTIVE: This is a 67-year-old white male admitted with asystole and surgery consult cholecystolithiasis. Will possibly need surgery as an outpatient. His stress test today showed inferolateral ischemia changed from rest and exercise. He will possibly need a heart catheterization prior to going home. He has polycythemia and obesity. Wait for possible cardiac catheterization or cardiac recommendations prior to being discharged home on an event monitor but I suspect he may need a heart catheterization. MMODL / IJN: [id number] /
[2018-02-10 06:04] LABS: Glucose,Whole Blood 155 mg/dL (75-99)
[2018-02-10] MEDS: POTASSIUM CHLORIDE ER 10 MEQ TAB.ER.PRT PO SCH (06:13)
[2018-02-10] MEDS: ATENOLOL 50 MG TAB PO SCH ×2 (06:13→20:20)
[2018-02-10] MEDS: INSULIN ASPART 100 UNIT/ML 1 ML 10 ML VIAL SQ SCH ×4 (06:13→20:20)
[2018-02-10 06:43] LABS: Albumin 3.6 g/dL (3.5-5.0); Potassium 3.4 mmol/L (3.5-5.1); Total Protein 6.2 g/dL (6.3-8.2)
[2018-02-10 06:44] LABS: Calcium 8.8 mg/dL (8.4-10.2); Total Bilirubin 1.8 mg/dL (0.2-1.3)
[2018-02-10] MEDS ORDERED: ASPIRIN 325 MG TAB PO STA (06:59)
[2018-02-10] MEDS: IPRATROPIUM-ALBUTEROL 3 ML NEB INHALATION SCH ×4 (07:04→19:42)
[2018-02-10] MEDS: SYMBICORT 160-4.5 MCG INHALER INHALATION SCH ×2 (07:04→19:42)
[2018-02-10] MEDS ORDERED: IV FLUID CONTINUATION 700 ML IV ONE (07:25)
[2018-02-10] MEDS ORDERED: fentaNYL (PF) 50 MCG/ML 2 ML AMP IV ONE (07:36)
[2018-02-10] MEDS ORDERED: MIDAZOLAM 2 MG/2 ML VIAL IVP ONE (07:36)
[2018-02-10] MEDS ORDERED: LIDOCAINE 1% INJ 10MG/ML (20 ML MDV) SQ ONE (07:38)
[2018-02-10] MEDS ORDERED: IOPAMIDOL-370 125ML BTL INJ ONE (07:49)
[2018-02-10] MEDS ORDERED: RX INFO: IV CONTRAST WAS GIVEN 1 EACH MISC MISCELLANE PRN (07:56)
[2018-02-10] MEDS: FUROSEMIDE 40 MG TAB PO SCH ×2 (08:30→20:20)
[2018-02-10] MEDS: LOSARTAN-HCTZ 50-12.5 MG 1 EACH TAB PO SCH (08:30)
[2018-02-10] MEDS: SODIUM CHLORIDE 0.9% 1,000 ML IV SCH (08:31)
--- NOTE | 2018-02-10 08:42 | CC ---
CARDIAC CATHETERIZATION REPORT INDICATION: Asystole with abnormal stress test showing ischemia in the inferolateral wall. PROCEDURE NOTE: After obtaining informed consent, left heart catheterization, coronary angiogram are performed via the right femoral artery using standard [place] catheters. The patient tolerated the procedure well without any obvious immediate complications. A femoral angiogram was performed and Angio-Seal was deployed for hemostasis. Patient received moderate conscious sedation. Total sedation time was 14 minutes. FINDINGS: 1. HEMODYNAMICS: Left ventricular end-diastolic pressure is 12 to 14 mm. There is no significant gradient across the aortic valve. 2. LEFT VENTRICULOGRAM: Left ventriculogram is not performed. 3. ANGIOGRAPHIC DATA: 4. Left main coronary artery: Left main coronary artery is a normal-sized vessel and is free of stenosis. Divides into left anterior descending coronary artery and circumflex coronary artery. LAD shows mild nonobstructive disease as does the circumflex. Right coronary artery is a large dominant vessel that shows mild nonobstructive disease involving both PDA and PLV. CONCLUSIONS: 1. Mild nonobstructive coronary artery disease. 2. Probably false-positive stress test. MMODL / IJN: [id number] /
[2018-02-10 11:53] LABS: Glucose,Whole Blood 155 mg/dL (75-99)
--- NOTE | 2018-02-10 12:23 | P.PN ---
<Maria Del Rosario Real - Last Filed: 02/10/18 12:19> Subjective Progress Note Date: 02/10/18 67-year-old just returned from having a heart catheterization which reportedly showed no acute findings no intervention. Patient states the abdominal pain is resolved and is anxious to be discharged. Abdomen soft no reports the nausea vomiting Objective - Vital Signs Vital signs: Vital Signs Temp 97.0 F L 02/10/18 00:00 Pulse 75 02/10/18 11:18 Resp 16 02/10/18 11:18 BP 129/66 02/10/18 11:15 Pulse Ox 93 L 02/10/18 11:15 Intake & Output 02/09/18 02/10/18 02/10/18 18:59 06:59 18:59 Intake Total 1160 200 Output Total 580 Balance 580 200 Weight 116.573 kg 115.3 kg Intake: IV 1160 100 Sodium Chloride 0.9% 1, 1160 000 ml In Empty Bag 1 bag @ 1 ML/KG/HR 116.57 mls/ hr IV .Q8H35M ONE Rx#: [id number] Oral 100 Output: Urine 580 Other: Voiding Method Urinal Urinal Urinal - Exam Physical exam 67-year-old resting in bed just returned from having heart catheterization appears in no acute distress Lungs anterior clear Heart S1-S2 audible regular Abdomen soft obese nontender states no abdominal pain reports no nausea vomiting tolerating diet Extremities no edema - Labs CBC & Chem 7: 02/07/18 13:00 02/10/18 06:02 Labs: Abnormal Lab Results - Last 24 Hours (Table) 02/09/18 02/09/18 02/09/18 Range/Units 12:24 16:50 20:49 Potassium (3.5-5.1) mmol/L Glucose (74-99) mg/dL POC Glucose (mg/dL) 148 H 174 H 149 H (75-99) mg/dL Total Bilirubin (0.2-1.3) mg/dL Total Protein (6.3-8.2) g/dL 02/10/18 02/10/18 02/10/18 Range/Units 06:02 06:03 11:35 Potassium 3.4 L (3.5-5.1) mmol/L Glucose 150 H (74-99) mg/dL POC Glucose (mg/dL) 155 H 155 H (75-99) mg/dL Total Bilirubin 1.8 H (0.2-1.3) mg/dL Total Protein 6.2 L (6.3-8.2) g/dL Assessment and Plan Assessment: Impression Prior to arrival possible episode per EMS of [place] Ultrasound done June 2017 cholelithiasis large amount of shadowing seen in the region of the gallbladder possible gallbladder filled with stones Hypertension Symptomatic nausea vomiting dizziness lightheadedness no clear cut evidence of a syncopal episode Status post left heart catheterization no acute findings Plan Patient could be followed in an outpatient setting next week for the gallstones gallbladder once patient cardiology status stable Pain control Plan for outpatient follow-up for possible lap cholecystectomy when medically cleared We'll sign off re-eval as needed see patient in the outpatient setting From a surgical perspective is felt to be appropriate to be discharged defer to the timing to the attending Progress note dictated for rounding on behalf dr sims The above impression and plan of care have been discussed and directed by signing physician. Maria Del Rosario Real nurse practitioner acting as scribe for signing physician. <Mina Mancuso - Last Filed: 02/10/18 22:17> Objective - Vital Signs Vital signs: Vital Signs Temp 97.3 F L 02/10/18 19:58 Pulse 87 02/10/18 19:58 Resp 18 02/10/18 19:58 BP 135/72 02/10/18 19:58 Pulse Ox 90 L 02/10/18 19:58 Intake & Output 02/10/18 02/10/18 02/11/18 06:59 18:59 06:59 Intake Total 1160 200 Output Total 580 425 Balance 580 200 -425 Weight 115.3 kg Intake: IV 1160 100 Sodium Chloride 0.9% 1, 1160 000 ml In Empty Bag 1 bag @ 1 ML/KG/HR 116.57 mls/ hr IV .Q8H35M ONE Rx#: [id number] Oral 100 Output: Urine 580 425 Other: Voiding Method Urinal Urinal - Labs CBC & Chem 7: 02/07/18 13:00 02/10/18 06:02 Labs: Abnormal Lab Results - Last 24 Hours (Table) 02/10/18 02/10/18 02/10/18 Range/Units 06:02 06:03 11:35 Potassium 3.4 L (3.5-5.1) mmol/L Glucose 150 H (74-99) mg/dL POC Glucose (mg/dL) 155 H 155 H (75-99) mg/dL Total Bilirubin 1.8 H (0.2-1.3) mg/dL Total Protein 6.2 L (6.3-8.2) g/dL 02/10/18 02/10/18 Range/Units 16:00 20:17 Potassium (3.5-5.1) mmol/L Glucose (74-99) mg/dL POC Glucose (mg/dL) 156 H 196 H (75-99) mg/dL Total Bilirubin (0.2-1.3) mg/dL Total Protein (6.3-8.2) g/dL Assessment and Plan Assessment: As above. Patient doing well. Denies abdominal pain. Hoping to go home today. Will follow up with Dr. sims in 1 week. We'll sign off at this point.
[2018-02-10 16:08] LABS: Glucose,Whole Blood 156 mg/dL (75-99)
[2018-02-10 20:18] LABS: Glucose,Whole Blood 196 mg/dL (75-99)
[2018-02-10] MEDS: MONTELUKAST 10 MG TAB PO SCH (20:20)
[2018-02-10] MEDS: ATORVASTATIN 10 MG TAB PO SCH (20:20)
[2018-02-10] MEDS: ASPIRIN 325 MG TAB PO SCH (20:21)
--- NOTE | 2018-02-10 21:21 | PN ---
PROGRESS NOTE SUBJECTIVE: A 67-year-old white male with a normal heart catheterization and has history of polycythemia, obstructive sleep apnea, hypertension, is going to have a loop recorder versus a Holter monitor placed before discharge, that is why his discharge was held. His potassium is a little bit low at 2.4, which will be replaced. Sugars are mid 100s. Awaiting Cardiology to place a monitor on him, then I can send him home. ASSESSMENT: 1. Atypical chest pain. 2. Polycythemia. 3. Sleep apnea. 4. Allergic asthma. 5. Diabetes mellitus. 6. Obesity could. 7. Cholecystitis. 8. Cholelithiasis. Will need to get gallbladder surgery as an outpatient after being cleared by Cardiology with a Holter monitor. Continue current home medicines. MMODL / IJN: [id number] /
[2018-02-11] MEDS: SODIUM CHLORIDE 0.9% 1,000 ML IV SCH ×2 (00:59→13:56)
[2018-02-11 05:50] LABS: Glucose,Whole Blood 130 mg/dL (75-99)
[2018-02-11] MEDS: INSULIN ASPART 100 UNIT/ML 1 ML 10 ML VIAL SQ SCH ×2 (05:52→13:56)
[2018-02-11] MEDS: SYMBICORT 160-4.5 MCG INHALER INHALATION SCH (09:01)
[2018-02-11] MEDS: IPRATROPIUM-ALBUTEROL 3 ML NEB INHALATION SCH ×2 (09:01→11:39)
[2018-02-11] MEDS: LOSARTAN-HCTZ 50-12.5 MG 1 EACH TAB PO SCH (09:02)
[2018-02-11] MEDS: POTASSIUM CHLORIDE ER 10 MEQ TAB.ER.PRT PO SCH (09:02)
[2018-02-11] MEDS: ATENOLOL 50 MG TAB PO SCH (09:02)
[2018-02-11] MEDS: FUROSEMIDE 40 MG TAB PO SCH (09:03)
[2018-02-11 09:09] VITALS: TEMP 97.3
[2018-02-11 11:49] LABS: Glucose,Whole Blood 123 mg/dL (75-99)
--- NOTE | 2018-02-11 12:21 | P.PN ---
Subjective Progress Note Date: 02/11/18 This is a 4 there is one EKG in the chart from EMS that shows a normal sinus rhythm with first-degree AV block and right bundle branch block pattern, EKG performed on arrival here shows normal sinus rhythm with first-degree AV block and right bundle branch block pattern. 7-year-old gentleman with known history of hypertension, diabetes, hyperlipidemia, prior history of smoking, COPD, who presented to the hospital with symptoms of nausea and vomiting with associated weakness, dizziness and lightheadedness. According to the patient, he states that he went to orthodoxy in the morning, he had a few things to eat after orthodoxy and went to lie down. Shortly thereafter he awoke with severe nausea and vomiting and felt extremely weak and dizzy. EMS was called, according to the ER report, patient was noted to have an episode of asystole while in the EMS, no documentation of this in the chart is currently unavailable, there is no EMS report or EKG from the EMS. Patient does state however that if he has had 2 similar episodes to this in the past first one being in June, neither of these times. He states he passed out, however felt close to passing out. One EKG from the EMS located in the chart, shows that the patient is in a normal sinus rhythm with first-degree AV block and right bundle branch block pattern, EKG performed in the ER on arrival here shows a normal sinus rhythm with a right bundle branch block pattern and first- degree AV block. Chest x-ray shows cardiomegaly with interstitial change and chronic scarring in the left lung base. CAT scan of the brain does not reveal any acute intracranial hemorrhage or midline shift, there is diffuse age- related cerebral atrophy and chronic small vessel ischemic change noted. Blood pressure on arrival here 130/70 with a heart rate in the 70s, 93% on 2 L of oxygen. White blood cell count 8.7, hemoglobin 15.3, platelet count 192. D- dimer 0.24. Sodium 139, potassium 3.9, BUN 21, creatinine 1.1. Troponins have been negative 3, TSH level is normal. At the time of my examination this morning, patient feels well, denies any nausea or vomiting, no dizziness or lightheadedness. 02/09/2018 Patient seen and examined this morning, no pauses were noted on the monitor. Blood pressure 134/80 heart rate in the 70s to 80s, and on 2 L of oxygen. Sodium 138, potassium 3.3, BUN 21, creatinine 1.0, total bilirubin 1.7 today up from 1.4 yesterday. AST normal today. Echocardiogram with Doppler study remains pending. Patient also is scheduled today to undergo a Lexiscan stress test. 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 Strickland did not reveal any evidence of significant obstructive coronary artery disease. He was seen and examined this morning, feels well, no dizziness or lightheadedness. No chest discomfort. No evidence of any positives on the monitor. From cardiology's perspective, he may be able to be discharged home today with a 30 day event monitor. Objective - Vital Signs Vital signs: Vital Signs Temp 97.3 F L 02/11/18 08:00 Pulse 84 02/11/18 11:49 Resp 16 02/11/18 11:49 BP 139/82 02/11/18 08:00 Pulse Ox 91 L 02/11/18 09:01 Intake & Output 02/10/18 02/11/18 02/11/18 18:59 06:59 18:59 Intake Total 200 Output Total 1425 Balance 200 -1425 Weight 116.1 kg Intake: IV 100 Oral 100 Output: Urine 1425 Other: Voiding Method Urinal # Voids 2 - Exam PHYSICAL EXAMINATION: GENERAL: 67-year-old gentleman in no acute distress at the time of my examination HEENT: Head is atraumatic, normocephalic. Pupils equal, round. Sclera anicteric. Conjunctiva are clear. Mucous membranes of the mouth are moist. Neck is supple. There is no elevated jugular venous pressure.] bruit is heard. HEART EXAMINATION: Heart S1, S2 normal. No murmur or gallop heard. CHEST EXAMINATION: Lungs are clear to auscultation and precussion. No chest wall tenderness is noted on palpation or with deep breathing. ABDOMEN: Soft, nontender. Bowel sounds are heard. No organomegaly noted. EXTREMITIES: 2+ peripheral pulses with no evidence of peripheral edema and no calf tenderness noted. NEUROLOGIC patient is awake, alert and oriented ?-3. - Labs CBC & Chem 7: 02/07/18 13:00 02/10/18 06:02 Labs: Abnormal Lab Results - Last 24 Hours (Table) 02/10/18 02/10/18 02/11/18 Range/Units 16:00 20:17 05:46 POC Glucose (mg/dL) 156 H 196 H 130 H (75-99) mg/dL 02/11/18 Range/Units 11:45 POC Glucose (mg/dL) 123 H (75-99) mg/dL Assessment and Plan Plan: Assessment and plan #1 symptoms of nausea and vomiting with associated dizziness and weakness, no clear-cut evidence of syncope, questionable asystole in the ambulance. EKG shows a normal sinus rhythm with right bundle branch block pattern, first- degree AV block. #2 hypertension #3 hyperlipidemia #4 diabetes #5 COPD #6 prior history of smoking Plan From cardiology's perspective, patient may be able to be discharged home today. We will send him home with a 30 day event monitor. Follow-up appointment in the office. Patient can also proceed with gallbladder surgery as an outpatient. DNP note has been reviewed, I agree with a documented findings and plan of care. Patient was seen and examined.
[2018-02-11 12:41] VITALS: BP 125/78; PULSE 78; RESP 18
== END 2018-02-11 14:58 | disposition home or self-care (01) | DRG 286 ==
LOC: EC 12:54 → 6SEL 15:26
PROVIDERS: ADMIT Family Medicine; ATTEND Family Medicine
PROC: B2111ZZ Fluoroscopy of Multiple Coronary Arteries using Low Osmolar Contrast (ICD-10-PCS; 2018-02-10)
PROC: 4A023N7 Measurement of Cardiac Sampling and Pressure, Left Heart, Percutaneous Approach (ICD-10-PCS; principal; 2018-02-10 07:30)
DX: I25.10 Atherosclerotic heart disease of native coronary artery without angina pectoris (principal); I46.9 Cardiac arrest, cause unspecified; K80.10 Calculus of gallbladder with chronic cholecystitis without obstruction; I10 Essential (primary) hypertension; Z95.5 Presence of coronary angioplasty implant and graft; Z87.891 Personal history of nicotine dependence; D75.1 Secondary polycythemia; E11.9 Type 2 diabetes mellitus without complications; E66.9 Obesity, unspecified; Z68.36 Body mass index [BMI] 36.0-36.9, adult; E78.5 Hyperlipidemia, unspecified; G47.33 Obstructive sleep apnea (adult) (pediatric); H91.93 Unspecified hearing loss, bilateral; I44.0 Atrioventricular block, first degree; I45.10 Unspecified right bundle-branch block; J43.9 Emphysema, unspecified; J98.4 Other disorders of lung; Z80.0 Family history of malignant neoplasm of digestive organs; Z80.42 Family history of malignant neoplasm of prostate; Z82.0 Family history of epilepsy and other diseases of the nervous system; Z83.3 Family history of diabetes mellitus; Z85.46 Personal history of malignant neoplasm of prostate; Z88.1 Allergy status to other antibiotic agents; Z79.82 Long term (current) use of aspirin; Z79.84 Long term (current) use of oral hypoglycemic drugs; Z79.899 Other long term (current) drug therapy; Z87.01 Personal history of pneumonia (recurrent); R11.2 Nausea with vomiting, unspecified; M19.90 Unspecified osteoarthritis, unspecified site; M54.9 Dorsalgia, unspecified
CPT/HCPCS: 36415; 70450; 71045; 78452; 80053; 80061; 82550; 82553; 83036; 83735; 84439; 84443; 84481; 84484; 85025; 85379; 85610; 85730; 93005; 93017; 93306; 93458; 94640; 94760; 96374; 99285

== ENCOUNTER 2018-05-14 05:34 | Day surgery (SDC) | payer MEDICARE ==
[2018-05-12 12:13] VITALS: BMI 37.3
[~2018-05-14 05:34] MED LIST: HEPARIN SODIUM,PORCINE 5,000 UNIT/ML 1 ML VIAL SQ ONE; HYDROmorphone 0.5 MG/0.5 ML SYRINGE IVP PRN; HYDROmorphone 1 MG/ML 1 ML SYRINGE IVP PRN; LACTATED RINGERS 1,000 ML IV SCH; MORPHINE SULFATE 2 MG/ML SYRINGE IV PRN; ONDANSETRON 4 MG/2 ML VIAL IVP PRN
[2018-05-14] MEDS ORDERED: LIDOCAINE 1% 20 ML VIAL (10MG/ML) FOR IV START INTRADERMA ONE (06:50)
[2018-05-14] MEDS ORDERED: DEXAMETHASONE SOD PHOSPHATE 10 MG/ML 1 ML VIAL IV ONE (06:50)
[2018-05-14 06:58] LABS: Glucose,Whole Blood 133 mg/dL (75-99)
--- NOTE | 2018-05-14 07:36 | P.GSHP ---
History of Present Illness H&P Date: 05/14/18 Chief Complaint: Chronic cholecystitis Patient here today for elective laparoscopic cholecystectomy. Patient has a history of known gallstones. Has had recent attacks of nausea and pain. No change in the color of his skin urine or stool. No abnormalities in his liver enzymes. Past Medical History Past Medical History: Asthma, Cancer, COPD, Diabetes Mellitus, Hearing Disorder / Deafness, Hyperlipidemia, Hypertension, Osteoarthritis (OA), Pneumonia, Prostate Disorder Additional Past Medical History / Comment(s): R and L hearing difficulty, back pain, hx R ankle fracture. Polycythemia - diagnosed in 2016, prostate cancer, hx skin cancer History of Any Multi-Drug Resistant Organisms: None Reported Past Surgical History: Heart Catheterization, Orthopedic Surgery, Prostate Surgery Additional Past Surgical History / Comment(s): stress test, L rotator cuff, L and R shoulder surgery. Prostatectomy, lt knee scope Past Anesthesia/Blood Transfusion Reactions: No Reported Reaction Smoking Status: Former smoker - Past Family History Father Family Medical History: Cancer, Dementia, Diabetes Mellitus Additional Family Medical History / Comment(s): parkinsons, colon cancer, prostate cancer. Father at age 82 yrs. Mother Family Medical History: Dementia, Diabetes Mellitus Additional Family Medical History / Comment(s): Mother at age 87yrs. Sister(s) Family Medical History: Diabetes Mellitus Brother(s) Family Medical History: Diabetes Mellitus Medications and Allergies Home Medications Medication Instructions Recorded Confirmed Type Aspirin 325 mg PO HS 10/24/13 05/12/18 History Simvastatin [Zocor] 20 mg PO HS 10/24/13 05/12/18 History Vitamin B Complex 1 tab PO DAILY 10/24/13 05/12/18 History metFORMIN HCL [Glucophage] 500 mg PO BID 10/24/13 05/12/18 History Omalizumab [Xolair] 375 mg SQ Q14D 08/29/14 05/12/18 History Cholecalciferol [Vitamin D3] 1,000 unit PO DAILY 04/25/15 05/12/18 History Garlic 1 tab PO DAILY 04/25/15 05/12/18 History Montelukast [Singulair] 10 mg PO HS 05/20/17 05/12/18 History Testosterone Cypionate 200 mg IM Q14D 05/20/17 05/12/18 History [Depo-Testosterone] Albuterol Nebulized [Ventolin 2.5 mg INHALATION RT-Q6H 02/07/18 05/12/18 History Nebulized] Furosemide [Lasix] 40 mg PO BID 02/07/18 05/12/18 History Ipratropium Nebulized [Atrovent 0.5 mg INHALATION RT-Q6H 02/07/18 05/12/18 History Nebulized] Naproxen Sodium [Aleve] 660 mg PO BID PRN 02/07/18 05/12/18 History Potassium Chloride ER [K-Dur 20] 20 meq PO BID 02/07/18 05/12/18 History glipiZIDE [Glucotrol] 1.25 mg PO BID 02/07/18 05/12/18 History Budesonide/Formoterol Fumarate 1 puff INHALATION QID 05/12/18 05/12/18 History [Symbicort 160-4.5 Mcg Inhaler] Dapagliflozin Propanediol [Farxiga] 10 mg PO DAILY 05/12/18 05/12/18 History Losartan Potassium [Cozaar] 100 mg PO DAILY 05/12/18 05/12/18 History Metoprolol Tartrate [Lopressor] 50 mg PO BID 05/14/18 05/14/18 History Allergies Allergy/AdvReac Type Severity Reaction Status Date / Time azithromycin Allergy Swelling Verified 05/14/18 06:14 Surgical - Exam Vital Signs Temp Pulse Resp BP Pulse Ox 98.5 F 68 16 156/82 95 05/14/18 06:32 05/14/18 06:32 05/14/18 06:32 05/14/18 06:32 05/14/18 06:32 Physical exam: General: Well-developed, well-nourished HEENT: Normocephalic, sclerae nonicteric Abdomen: Nontender, nondistended Extremities: No edema Neuro: Alert and oriented Results - Labs Abnormal Lab Results - Last 24 Hours (Table) 05/14/18 Range/Units 06:41 POC Glucose (mg/dL) 133 H (75-99) mg/dL Assessment and Plan (1) Chronic cholecystitis Narrative/Plan: Will proceed with cholecystectomy at this time. Risks of bleeding, infection, bile leak, bile duct injury, retained common bile duct stone, trocar injury, conversion to an open procedure, hernia, anesthesia related complications were reviewed. The patient understands and wishes to proceed. Current Visit: Yes Status: Acute Code(s): K81.1 - CHRONIC CHOLECYSTITIS SNOMED Code(s): 72938076
[2018-05-14] MEDS ORDERED: NEOSTIGMINE 1 MG/ML 10 ML VIAL ONE (07:54)
[2018-05-14] MEDS ORDERED: ePHEDrine SULFATE/0.9% NACL/PF 50 MG/5 ML SYRINGE IV ONE (07:54)
[2018-05-14] MEDS ORDERED: SUCCINYLCHOLINE CHLORIDE 100 MG/5 ML SYR IV ONE (07:54)
[2018-05-14] MEDS ORDERED: MIDAZOLAM 2 MG/2 ML VIAL ONE (07:54)
[2018-05-14] MEDS ORDERED: PROPOFOL 10 MG/ML 20 ML VIAL IV ONE (07:54)
[2018-05-14] MEDS ORDERED: ROCURONIUM BROMIDE 10 MG/ML 10 ML VIAL IV ONE (07:54)
[2018-05-14] MEDS ORDERED: GLYCOPYRROLATE 0.2 MG/ML 2 ML VIAL ONE (07:54)
[2018-05-14] MEDS ORDERED: LIDOCAINE 1% INJ 10MG/ML (20 ML MDV) ONE (07:54)
[2018-05-14] MEDS ORDERED: BUPIVACAIN-EPI 0.25%-1:200,000 30 ML VIAL SQ ONE ×2 (08:14)
[2018-05-14 09:19] VITALS: TEMP 96.8
[2018-05-14] MEDS ORDERED: HYDROcodone/APAP 5-325MG 1 EACH TAB PO PRN (09:26)
[2018-05-14] MEDS ORDERED: NALOXONE 0.4 MG/ML 1 ML VIAL IV PRN (09:26)
--- NOTE | 2018-05-14 09:29 | P.OP ---
Date of Procedure: 05/14/18 Procedure(s) Performed: PREOPERATIVE DIAGNOSIS: Chronic cholecystitis POSTOPERATIVE DIAGNOSIS: Porcelain gallbladder PROCEDURE: Laparoscopic cholecystectomy SURGEON: Jamee EBL: Minimal see anesthesia record ANESTHESIA: Gen. COMPLICATIONS: None OPERATIVE PROCEDURE: The patient was brought and placed on the operating room table in the supine position. The patient was placed under general anesthesia at that time. The abdomen was prepped and draped in the usual sterile fashion. A small vertical infraumbilical incision was made. The fascia was grasped with the Familia forceps. The fascia was retracted anteriorly. The Veress needle was advanced into the peritoneal cavity. The saline drop test was normal. Insufflation took place up to 15 mmHg. A 5 mm optical trocar was advanced and the peritoneal cavity. 2 additional 5 mm trochars were placed in the right upper quadrant under direct visualization. A 12 mm trocar was advanced into the epigastric incision site. The gallbladder was calcified. The gallbladder was retracted superiorly and laterally. The peritoneum overlying the infundibulum was bluntly dissected. The patient's cystic duct was visualized. The junction between the cystic duct common and hepatic duct was identified. The cystic duct was then divided after placement of 3 12 mm clips on the patient's side and one on the specimen side. The cystic artery was identified and clipped as well. A small vessel was seen along the gallbladder fossa and clipped as well. The gallbladder was then removed from the liver bed using electrocautery. The gallbladder was then removed from the epigastric trocar site with an Endo Catch bag. This required lengthening of the fascial opening. The gallbladder fossa was irrigated with saline. There was no evidence of any bleeding or biliary drainage seen. The trochars were then removed. The fascia at the 10 millimeter site was closed using a running 0 Vicryl stitch. The skin at all 4 sites was closed using a 4-0 Monocryl stitch. At the end of this procedure the sponge and needle counts were correct. Skin glue was then utilized. DISPOSITION: Stable to the recovery room
[2018-05-14] MEDS ORDERED: ALBUTEROL NEBULIZED 2.5 MG/3 ML INHALATION ONE (09:36)
[2018-05-14] MEDS ORDERED: INSULIN ASPART 100 UNIT/ML 1 ML 10 ML VIAL SQ ONE (09:45)
[2018-05-14 10:03] VITALS: RESP 16
[2018-05-14 10:10] LABS: Glucose,Whole Blood 231 mg/dL (75-99)
[2018-05-14] MEDS ORDERED: HYDROcodone/APAP 5-325MG 1 EACH TAB PO ONE (10:55)
[2018-05-14 11:36] VITALS: BP 133/86; PULSE 84
== END 2018-05-14 12:04 | disposition home or self-care (01) ==
LOC: OR 05:34
PROVIDERS: ATTEND Surgery
DX: K80.10 Calculus of gallbladder with chronic cholecystitis without obstruction (principal); E11.9 Type 2 diabetes mellitus without complications; E78.5 Hyperlipidemia, unspecified; J44.9 Chronic obstructive pulmonary disease, unspecified; M19.90 Unspecified osteoarthritis, unspecified site; I10 Essential (primary) hypertension; D75.1 Secondary polycythemia; Z87.891 Personal history of nicotine dependence; Z85.46 Personal history of malignant neoplasm of prostate; Z85.828 Personal history of other malignant neoplasm of skin; Z87.01 Personal history of pneumonia (recurrent); Z79.82 Long term (current) use of aspirin; Z79.84 Long term (current) use of oral hypoglycemic drugs; Z79.890 Hormone replacement therapy; Z79.899 Other long term (current) drug therapy; Z88.1 Allergy status to other antibiotic agents; Z79.51 Long term (current) use of inhaled steroids; E66.01 Morbid (severe) obesity due to excess calories; Z68.37 Body mass index [BMI] 37.0-37.9, adult; G47.33 Obstructive sleep apnea (adult) (pediatric)
CPT/HCPCS: 47562; 88304; J2250; J1644; J1100; J2710; J0690; J2405; J2001; J0330; J2704

== ENCOUNTER → 2018-09-27 | Outpatient (CLI) | payer MEDICARE ==
--- NOTE | 2018-09-27 11:35 | XR ---
EXAMINATION TYPE: XR chest 2V DATE OF EXAM: 09/27/2018 COMPARISON: 02/07/2018 TECHNIQUE: PA and lateral views submitted. HISTORY: Cough possible pneumonia FINDINGS: The lungs are clear and there is no pneumothorax, pleural effusion, or focal pneumonia. Hypertrophi c and degenerative change of the spine. Hyperinflation suggests COPD. Chronic rib deformities are not ed. There is pleural-based thickening. IMPRESSION: 1. No acute process.
[2018-09-27 12:47] LABS: Anisocytosis Slight; Basophils # (A) 0.1 k/uL (0-0.2); Basophils % (A) 1 %; Eosinophils # (A) 0.1 k/uL (0-0.7); Eosinophils % (A) 2 %; HGB 17.5 gm/dL (13.0-17.5); Hypochromasia Marked; Lymphocytes # (A) 1.2 k/uL (1.0-4.8); Lymphocytes % (A) 16 %; MCH 22.6 pg (25.0-35.0); MCHC 29.4 g/dL (31.0-37.0); Mean Platelet Volume 7.7; Microcytosis Slight; Monocytes # (A) 0.6 k/uL (0-1.0); Monocytes % (A) 8 %; Neutrophils # (A) 5.2 k/uL (1.3-7.7); Neutrophils % (A) 72 %; Platelet Count 212 k/uL (150-450); RDW 18.6 % (11.5-15.5); WBC 7.3 k/uL (3.8-10.6)
[2018-09-27 12:52] LABS: Albumin 4.5 g/dL (3.5-5.0); Calcium 9.6 mg/dL (8.4-10.2); Potassium 4.5 mmol/L (3.5-5.1); Total Bilirubin 1.7 mg/dL (0.2-1.3); Total Protein 7.4 g/dL (6.3-8.2)
[2018-09-27 13:04] LABS: RBC 7.73 m/uL (4.30-5.90)
[2018-09-27 13:07] LABS: HCT 59.5 % (39.0-53.0)
[2018-09-28 07:40] LABS: Prothrombin Time 11.4 sec (9.0-12.0)
[2018-09-28 07:41] LABS: INR 1.1 (<1.2); Partial Thromboplastin Time 25.3 sec (22.0-30.0)
== END | disposition home or self-care (01) ==
LOC: RADXRMAIN 11:16
PROVIDERS: ATTEND Family Medicine
DX: J18.9 Pneumonia, unspecified organism (principal); I82.409 Acute embolism and thrombosis of unspecified deep veins of unspecified lower extremity; B89 Unspecified parasitic disease; R52 Pain, unspecified
CPT/HCPCS: 71046; 80053; 85025; 85610; 85730

== ENCOUNTER → 2018-09-30 | Outpatient (CLI) | payer BC, MEDICARE ==
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
== END ==
LOC: RADCTMAIN 11:00
PROVIDERS: ATTEND Family Medicine
DX: M95.4 Acquired deformity of chest and rib (principal); I25.10 Atherosclerotic heart disease of native coronary artery without angina pectoris
CPT/HCPCS: 71250; 74150

== ENCOUNTER → 2021-05-24 | Outpatient (CLI) | payer MEDICARE | LOC: PROCWHC3 16:19 | PROVIDERS: ATTEND Family Medicine | DX: Z53.9 Procedure and treatment not carried out, unspecified reason (principal) ==

== ENCOUNTER → 2023-11-27 | Outpatient (CLI) | payer OTHER ==
--- NOTE | 2023-11-27 20:27 | CT ---
EXAMINATION TYPE: CT cervical spine wo con CT DLP: 778.4 mGycm, Automated exposure control for dose reduction was used. DATE OF EXAM: 11/27/2023 4:23 PM COMPARISON: None. CLINICAL INDICATION:Male, 73 years old with history of G56.93 UNSPECIFIED MONONEUROPATHY OF BILATERAL UPP; PHH, neuropathy bilateral arms TECHNIQUE: Axial CT images from the skull base to the inferior aspect of T2 we obtained without intra venous contrast. Coronal and sagittal reformatted images were also reviewed. Contrast used: mL of , (if blank None) Oral contrast used: (if blank None) Cervical spine: Fracture: None seen. Osseous structures, spinal canal/neural foramina: Generalized osteopenia. No evidence of destructive lesion. Current cervical junction appears intact with moderate degenerative changes. Density change t o the anterior C1-C2 articulation. Otherwise multilevel moderate degenerative disc changes and facet arthrosis in the cervical spine. Mild to moderate canal and foraminal stenosis at multiple levels wit hout critical stenosis seen. Vertebral alignment: No traumatic malalignment. Straightening of the normal cervical lordosis, can be seen with degenerative changes, pain, positioning, muscular spasm. Neck soft tissues: No acute finding.. Calcifications noted involving the cervical carotid arteries, a nd ICAs at the skull base Other: Lung apices show no acute infiltrate or pneumothorax. Scattered nonenlarged nodes are also se en. If clinically warranted, MRI may be considered for further evaluation. IMPRESSION: 1. No evidence of cervical spine fracture or traumatic malalignment. 2. Moderate cervical spondylosis.
== END | disposition home or self-care (01) ==
LOC: RADCTMAIN 15:52
PROVIDERS: ATTEND Family Medicine
DX: M47.812 Spondylosis without myelopathy or radiculopathy, cervical region (principal); G56.93 Unspecified mononeuropathy of bilateral upper limbs
CPT/HCPCS: 72125

== ENCOUNTER → 2023-12-04 | Outpatient (CLI) | payer OTHER ==
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
== END | disposition home or self-care (01) ==
LOC: RADCTMAIN 12:05
PROVIDERS: ATTEND Family Medicine
DX: S06.9X9A Unspecified intracranial injury with loss of consciousness of unspecified duration, initial encounter (principal); I67.82 Cerebral ischemia; G93.89 Other specified disorders of brain
CPT/HCPCS: 70450

== ENCOUNTER 2024-05-17 12:37 | Inpatient (IN) | payer MEDICARE ==
--- NOTE | 2024-05-17 13:24 | ED ---
General Adult HPI - General Chief complaint: Shortness of Breath Stated complaint: covid Time Seen by Provider: 05/17/24 12:40 Source: patient, RN notes reviewed, old records reviewed Mode of arrival: wheelchair Limitations: no limitations - History of Present Illness Initial comments: This is a 74-year-old male who presents to the emergency department complaining of difficulty breathing since . Patient states he went to his doctors today and his doctor gave him a shot of steroids and sent him to the emergency department. Patient states he was oxygenating at 80% and Dr. Owens's office. Patient states he does have oxygen at home and he is to use it as needed. Patient states he had a cough since and is not getting any better. Patient denies any known fever or chills. Patient denies any sore throat. Patient [place] any abdominal pain patient has nausea vomiting diarrhea. - Related Data Home Medications Medication Instructions Recorded Confirmed Aspirin 325 mg PO HS 10/24/13 05/13/24 Simvastatin [Zocor] 20 mg PO HS 10/24/13 05/13/24 Vitamin B Complex 1 tab PO DAILY 10/24/13 05/13/24 metFORMIN HCL [Glucophage] 500 mg PO BID 10/24/13 05/13/24 Cholecalciferol [Vitamin D3 (25 1,000 unit PO DAILY 04/25/15 05/13/24 Mcg = 1000 Iu)] Garlic 1 tab PO DAILY 04/25/15 05/13/24 Montelukast [Singulair] 10 mg PO HS 05/20/17 05/13/24 Testosterone Cypionate 200 mg IM Q14D 05/20/17 05/13/24 [Depo-Testosterone] Furosemide [Lasix] 40 mg PO BID 02/07/18 05/13/24 Ipratropium Nebulized [Atrovent 0.5 mg INHALATION RT-Q6H 02/07/18 05/13/24 Nebulized] Naproxen Sodium [Aleve] 660 mg PO BID PRN 02/07/18 05/13/24 Potassium Chloride ER [K-Dur 20] 20 meq PO BID 02/07/18 05/13/24 glipiZIDE [Glucotrol] 1.25 mg PO BID 02/07/18 05/13/24 Budesonide/Formoterol Fumarate 1 puff INHALATION QID 05/12/18 05/13/24 [Symbicort 160-4.5 Mcg Inhaler] Dapagliflozin Propanediol [Farxiga] 10 mg PO DAILY 05/12/18 05/13/24 Losartan Potassium [Cozaar] 100 mg PO DAILY 05/12/18 05/13/24 Metoprolol Tartrate [Lopressor] 50 mg PO BID 05/14/18 05/13/24 Tiotropium Check [Spiriva 1 spray INHALATION DAILY 01/04/19 05/13/24 Respimat] Omalizumab [Xolair] 375 mg SQ ONCE 12/30/19 05/13/24 Copper/Zinc 1 tab PO DAILY 11/08/21 05/13/24 Cholestyramine (with Sugar) 4 gm PO DIRECTED 02/14/22 05/13/24 [Questran Packet] Meloxicam [Mobic] 15 mg PO DAILY 02/14/22 05/13/24 Omeprazole [PriLOSEC] 40 mg PO DAILY 02/14/22 05/13/24 Previous Rx's Medication Instructions Recorded Hydrocodone/Acetaminophen [[place] 1 - 2 each PO Q4HR PRN #10 tab 05/14/18 5-325] Allergies Allergy/AdvReac Type Severity Reaction Status Date / Time azithromycin Allergy Swelling Verified 05/17/24 12:40 Review of Systems ROS Statement: Those systems with pertinent positive or pertinent negative responses have been documented in the HPI. ROS Other: All systems not noted in ROS Statement are negative. Past Medical History Past Medical History: Asthma, COPD, Hearing Disorder / Deafness, Hyperlipidemia, Hypertension, Pneumonia Additional Past Medical History / Comment(s): R and L hearing difficulty, emphysema, back pain, arthritis, R ankle fracture. Polycythemia History of Any Multi-Drug Resistant Organisms: None Reported Past Surgical History: Cholecystectomy, Heart Catheterization, Orthopedic Surgery, Prostate Surgery Additional Past Surgical History / Comment(s): stress test, L rotator cuff, L and R shoulder surgery Past Anesthesia/Blood Transfusion Reactions: No Reported Reaction Past Psychological History: No Psychological Hx Reported Smoking Status: Former smoker - Past Family History Father Family Medical History: Cancer, Dementia, Diabetes Mellitus Additional Family Medical History / Comment(s): parkinsons, colon cancer, prostate cancer. Father at age 82 yrs. Mother Family Medical History: Dementia, Diabetes Mellitus Additional Family Medical History / Comment(s): Mother at age 87yrs. Sister(s) Family Medical History: Diabetes Mellitus Brother(s) Family Medical History: Diabetes Mellitus General Exam - General Exam Comments Initial Comments: GENERAL: Patient is well-developed and well-nourished. Patient is nontoxic and well- hydrated and is in mild distress. ENT: Neck is soft and supple. No significant lymphadenopathy is noted. Oropharynx is clear. Moist mucous membranes. Neck has full range of motion without eliciting any pain. EYES: The sclera were anicteric and conjunctiva were pink and moist. Extraocular movements were intact and pupils were equal round and reactive to light. Eyelids were unremarkable. PULMONARY: Unlabored respirations. Good breath sounds bilaterally. No audible rales rhonchi or wheezing was noted. CARDIOVASCULAR: There is a regular rate and rhythm without any murmurs gallops or rubs. ABDOMEN: Soft and nontender with normal bowel sounds. No palpable organomegaly was noted. There is no palpable pulsatile mass. SKIN: Skin is clear with no lesions or rashes and otherwise unremarkable. NEUROLOGIC: Patient is alert and oriented x3. Cranial nerves II through XII are grossly intact. Motor and sensory are also intact. Normal speech, volume and content. Symmetrical smile. MUSCULOSKELETAL: Normal extremities with adequate strength and full range of motion. No lower extremity swelling or edema. No calf tenderness. LYMPHATICS: No significant lymphadenopathy is noted PSYCHIATRIC: Normal psychiatric evaluation. Limitations: no limitations Course Vital Signs 05/17/24 05/17/24 05/17/24 12:37 12:46 14:33 Temperature 98.5 F Pulse Rate 109 H 100 Respiratory 22 24 24 Rate Blood Pressure 128/71 95/77 O2 Sat by Pulse 80 L 92 L Oximetry 05/17/24 14:56 Temperature Pulse Rate 100 Respiratory 18 Rate Blood Pressure 132/79 O2 Sat by Pulse 92 L Oximetry Medical Decision Making - Medical Decision Making EKG is interpreted by myself. EKG shows a sinus tachycardia 104 bpm [place] was 169 QRS is 148 QT interval 365 QTc is 425. Patient's EKG shows a right bundle branch block. Was pt. sent in by a medical professional or institution (, PA, [employer], urgent care, hospital, or usp...) When possible be specific @ -No Did you speak to anyone other than the patient for history (EMS, parent, family, police, friend...)? What history was obtained from this source @ -No Did you review nursing and triage notes (agree or disagree)? Why? @ -I reviewed and agree with nursing and triage notes Were old charts reviewed (outside hosp., previous admission, EMS record, old EKG, old radiological studies, urgent care reports/EKG's, usp records)? Report findings @ -No old charts were reviewed Differential Diagnosis? @ -Differential Dyspnea: Coronary syndrome, arrhythmia, tamponade, asthma, COPD, pulmonary embolism, pneumonia, pneumothorax, pulmonary effusion, anaphylaxis, diabetic ketoacidosis, flailed chest, pulmonary contusion, diaphragmatic rupture, anemia, ne uromuscular, this is not meant to be an all-inclusive list. EKG interpreted by me (3pts min.). @ -As above X-rays interpreted by me (1pt min.). @ -Chest x-ray is consistent with pulmonary edema CT interpreted by me (1pt min.). @ -CT shows no PE and possible pulmonary edema U/S interpreted by me (1pt. min.). @ -None done What testing was considered but not performed or refused? (CT, X-rays, U/S, labs)? Why? @ -None What meds were considered but not given or refused? Why? @ -None Did you discuss the management of the patient with other professionals (professionals i.e. , PA, [employer], lab, RT, psych nurse, oncology social work, car seat maker, teacher, electorate officer, child support case officer)? Give summary @ -I spoke with Dr. Owens he agreed to admit the patient admit the patient wrote admitting orders Was smoking cessation discussed for >3mins.? @ -No Was critical care preformed (if so, how long)? @ -No Were there social determinants of health that impacted care today? How? (Homelessness, low income, unemployed, alcoholism, drug addiction, transportation, low edu. Level, literacy, decrease access to med. care, correction, rehab)? @ -No Was there de-escalation of care discussed even if they declined (Discuss DNR or withdrawal of care, Hospice)? DNR status @ -No What co-morbidities impacted this encounter? (DM, HTN, Smoking, COPD, CAD, Cancer, CVA, ARF, Chemo, Hep., AIDS, mental health diagnosis, sleep apnea, morbid obesity)? @ -None Was patient admitted / discharged? Hospital course, mention meds given and route, prescriptions, significant lab abnormalities, going to OR and other pertinent info. @ -Patient was given Lasix for the pulmonary edema. Spoke with Dr. Owens admitted the patient to him and I consulted cardiology Undiagnosed new problem with uncertain prognosis? @ -No Drug Therapy requiring intensive monitoring for toxicity (Heparin, Nitro, Insulin, Cardizem)? @ -No Were any procedures done? @ -No Diagnosis/symptom? @ -Acute pulmonary edema Acute, or Chronic, or Acute on Chronic? @ -Acute Uncomplicated (without systemic symptoms) or Complicated (systemic symptoms)? @ -Complicated Side effects of treatment? @ -No Exacerbation, Progression, or Severe Exacerbation? @ -No Poses a threat to life or bodily function? How? (Chest pain, [place], HI, pneumonia, PE, COPD, DKA, ARF, appy, cholecystitis, CVA, Diverticulitis, Homicidal, Suicidal, threat to staff... and all critical care pts) @ -Yes this could lead to hypoxia and endorgan dysfunction - Lab Data Result diagrams: 05/17/24 13:36 05/17/24 13:36 Lab Results 05/17/24 05/17/24 05/17/24 Range/Units 13:36 13:36 13:36 WBC 9.4 (3.8-10.6) k/uL RBC 6.56 H (4.30-5.90) m/uL Hgb 14.3 (13.0-17.5) gm/dL Hct 48.5 (39.0-53.0) % MCV 74.0 L (80.0-100.0) fL MCH 21.9 L (25.0-35.0) pg MCHC 29.6 L (31.0-37.0) g/dL RDW 17.8 H (11.5-15.5) % Plt Count 165 (150-450) k/uL MPV 7.7 Neutrophils % 83 % Lymphocytes % 8 % Monocytes % 6 % Eosinophils % 1 % Basophils % 1 % Neutrophils # 7.8 H (1.3-7.7) k/uL Lymphocytes # 0.7 L (1.0-4.8) k/uL Monocytes # 0.6 (0-1.0) k/uL Eosinophils # 0.1 (0-0.7) k/uL Basophils # 0.1 (0-0.2) k/uL Hypochromasia Marked Poikilocytosis Slight Anisocytosis Slight Microcytosis Moderate PT 12.0 (10.0-12.5) sec INR 1.1 (<1.2) APTT 27.0 (22.0-30.0) sec D-Dimer 0.91 H (<0.60) mg/L FEU Sodium 134 L (137-145) mmol/L Potassium 4.4 (3.5-5.1) mmol/L Chloride 104 (98-107) mmol/L Carbon Dioxide 22 (22-30) mmol/L Anion Gap 8 mmol/L BUN 13 (9-20) mg/dL Creatinine 0.83 (0.66-1.25) mg/dL Est GFR (CKD-EPI)AfAm >90 (>60 ml/min/1.73 sqM) Est GFR (CKD-EPI)NonAf 86 (>60 ml/min/1.73 sqM) Glucose 199 H (74-99) mg/dL Plasma Lactic Acid Nicanor (0.7-2.0) mmol/L Calcium 8.5 (8.4-10.2) mg/dL Magnesium 2.0 (1.6-2.3) mg/dL Total Bilirubin 1.4 H (0.2-1.3) mg/dL AST 28 (17-59) U/L ALT 16 (4-49) U/L Alkaline Phosphatase 90 (38-126) U/L Troponin I (0.000-0.034) ng/mL NT-Pro-B Natriuret Pep 2400 pg/mL Total Protein 5.7 L (6.3-8.2) g/dL Albumin 3.2 L (3.5-5.0) g/dL Influenza Type A (PCR) (Not Detectd) Influenza Type B (PCR) (Not Detectd) RSV (PCR) (Not Detectd) SARS-CoV-2 (PCR) (Not Detectd) 05/17/24 05/17/24 05/17/24 Range/Units 13:36 13:36 13:36 WBC (3.8-10.6) k/uL RBC (4.30-5.90) m/uL Hgb (13.0-17.5) gm/dL Hct (39.0-53.0) % MCV (80.0-100.0) fL MCH (25.0-35.0) pg MCHC (31.0-37.0) g/dL RDW (11.5-15.5) % Plt Count (150-450) k/uL MPV Neutrophils % % Lymphocytes % % Monocytes % % Eosinophils % % Basophils % % Neutrophils # (1.3-7.7) k/uL Lymphocytes # (1.0-4.8) k/uL Monocytes # (0-1.0) k/uL Eosinophils # (0-0.7) k/uL Basophils # (0-0.2) k/uL Hypochromasia Poikilocytosis Anisocytosis Microcytosis PT (10.0-12.5) sec INR (<1.2) APTT (22.0-30.0) sec D-Dimer (<0.60) mg/L FEU Sodium (137-145) mmol/L Potassium (3.5-5.1) mmol/L Chloride (98-107) mmol/L Carbon Dioxide (22-30) mmol/L Anion Gap mmol/L BUN (9-20) mg/dL Creatinine (0.66-1.25) mg/dL Est GFR (CKD-EPI)AfAm (>60 ml/min/1.73 sqM) Est GFR (CKD-EPI)NonAf (>60 ml/min/1.73 sqM) Glucose (74-99) mg/dL Plasma Lactic Acid Nicanor 1.9 (0.7-2.0) mmol/L Calcium (8.4-10.2) mg/dL Magnesium (1.6-2.3) mg/dL Total Bilirubin (0.2-1.3) mg/dL AST (17-59) U/L ALT (4-49) U/L Alkaline Phosphatase (38-126) U/L Troponin I <0.012 (0.000-0.034) ng/mL NT-Pro-B Natriuret Pep pg/mL Total Protein (6.3-8.2) g/dL Albumin (3.5-5.0) g/dL Influenza Type A (PCR) Not Detected (Not Detectd) Influenza Type B (PCR) Not Detected (Not Detectd) RSV (PCR) Not Detected (Not Detectd) SARS-CoV-2 (PCR) Not Detected (Not Detectd) Disposition Clinical Impression: Acute pulmonary edema Disposition: ADMITTED IP TO THIS HOSP Referrals: Terrell Owens MD [Primary Care Provider] - 1-2 days Time of Disposition: 15:16
[2024-05-17 13:51] LABS: Anisocytosis Slight; Basophils # (A) 0.1 k/uL (0-0.2); Basophils % (A) 1 %; Eosinophils # (A) 0.1 k/uL (0-0.7); Eosinophils % (A) 1 %; HCT 48.5 % (39.0-53.0); HGB 14.3 gm/dL (13.0-17.5); Hypochromasia Marked; Lymphocytes # (A) 0.7 k/uL (1.0-4.8); Lymphocytes % (A) 8 %; MCH 21.9 pg (25.0-35.0); MCHC 29.6 g/dL (31.0-37.0); Mean Platelet Volume 7.7; Microcytosis Moderate; Monocytes # (A) 0.6 k/uL (0-1.0); Monocytes % (A) 6 %; Neutrophils # (A) 7.8 k/uL (1.3-7.7); Neutrophils % (A) 83 %; Platelet Count 165 k/uL (150-450); Poikilocytosis Slight; RBC 6.56 m/uL (4.30-5.90); RDW 17.8 % (11.5-15.5); WBC 9.4 k/uL (3.8-10.6)
[2024-05-17 13:56] LABS: ALT 16 U/L (4-49); AST 28 U/L (17-59); African American GFR (CKD) >90 (>60 ml/min/1.73 sqM); Albumin 3.2 g/dL (3.5-5.0); Alkaline Phosphatase 90 U/L (38-126); Anion Gap 8 mmol/L; Blood Urea Nitrogen 13 mg/dL (9-20); Calcium 8.5 mg/dL (8.4-10.2); Carbon Dioxide 22 mmol/L (22-30); Chloride 104 mmol/L (98-107); Glucose 199 mg/dL (74-99); Non-African American GFR(CKD) 86 (>60 ml/min/1.73 sqM); Potassium 4.4 mmol/L (3.5-5.1); Sodium 134 mmol/L (137-145); Total Bilirubin 1.4 mg/dL (0.2-1.3); Total Protein 5.7 g/dL (6.3-8.2)
[2024-05-17 13:57] LABS: INR 1.1 (<1.2)
[2024-05-17 14:04] LABS: NT-Pro-B-Type Natriuretic Pept 2400 pg/mL
--- NOTE | 2024-05-17 14:07 | XR ---
EXAMINATION TYPE: XR chest 2V DATE OF EXAM: 05/17/2024 1:44 PM COMPARISON: Chest radiographs from CLINICAL INDICATION: Male, 74 years old with history of difficulty breathing; [facility] TECHNIQUE: XR chest 2V Frontal and lateral views of the chest. FINDINGS: Lungs/Pleura: There is flattening of the diaphragm with increased lucency of the lungs. No evidence o f pneumothorax, pleural effusion or focal consolidation. Pulmonary vascularity: Pulmonary vascular congestion. Heart/mediastinum: Cardiomediastinal silhouette is enlarged and stable. Musculoskeletal: No acute osseous pathology. IMPRESSION: 1. Diffuse airspace opacities correlate for pulmonary congestion versus atypical pneumonia. 2. COPD. [facility], , 05/17/2024 2:05 PM
--- NOTE | 2024-05-17 14:55 | CT ---
EXAMINATION TYPE: CT chest angio for PE CT DLP: 652 mGycm, Automated exposure control for dose reduction was used. DATE OF EXAM: 05/17/2024 2:36 PM COMPARISON: Chest radiograph from same day. CT chest abdomen 09/30/2018 CLINICAL INDICATION:Male, 74 years old with history of Elevated D-dimer, shortness of breath; ezra/ad copy writer d TECHNIQUE/CONTRAST: CTA scan of the thorax is performed with IV Contrast, patient injected with 100ml mL of Isovue 370, p ulmonary embolism protocol. MIP images are created and reviewed. FINDINGS: Pulmonary Artery: There is no evidence for a filling defect within the pulmonary vasculature to sugge st acute pulmonary embolism. The pulmonary artery is of normal size. Lungs/Pleura: Trace bilateral pleural effusions with associated atelectasis. Patchy airspace opacitie s identified within the right middle lobe. Additional patchy consolidation within the medial aspect o f the left lower lobe. Airway: Large airways are patent. Heart: The heart is mildly enlarged for size.. Trace pericardial effusion. Vasculature: No evidence of aortic aneurysm. Mild atherosclerotic calcification of the aorta and its branches. Mediastinum: Enlarged mediastinal lymph nodes including a right paratracheal lymph node measuring 1.4 cm short axis (series 401, image 36), a precarinal lymph node measuring 1.3 cm short axis (series 40 1, 63) and a subcarinal lymph node measuring 1.8 similar short axis (series 401, image 83). Additiona l prominent bilateral hilar lymph nodes. Musculoskeletal: No acute osseous abnormalities. Surgical anchors within the left humeral head. DISH of the thoracic spine. Soft Tissues: Bilateral gynecomastia. Lower neck: No significant findings. Upper Abdomen: Gallbladder is surgically absent. Enlarged spleen measuring 15.8 cm this AP dimension. Cortical right renal 1.2 subcentimeter cyst. IMPRESSION: 1. No evidence of pulmonary embolism. 2. Patchy airspace opacities within the right middle lobe and medial left lower lobe concerning for p neumonia. 3. Trace bilateral pleural effusions with associated atelectasis. 4. Mediastinal adenopathy with prominent bilateral hilar lymph nodes which is likely reactive to #2. 5. Splenomegaly. [facility], , 05/17/2024 2:53 PM
[2024-05-17] MEDS: FUROSEMIDE 10 MG/ML 4 ML VIAL IV STA (14:57)
[2024-05-17] MEDS: FUROSEMIDE 10 MG/ML 4 ML VIAL IV SCH (16:48)
[2024-05-17] MEDS: NITROGLYCERIN OINT 1 INCH/GM PACKET TOPICAL SCH (17:31)
[2024-05-17] MEDS ORDERED: HYDROcodone/APAP 5-325MG 1 EACH TAB PO PRN (18:24)
[2024-05-17] MEDS: carvediloL 6.25 MG TAB PO SCH (18:53)
[2024-05-17] MEDS: methylPREDNISolone SOD SUCCI 40 MG/ML 1 ML VIAL IV SCH (18:54)
[2024-05-17] MEDS: LEVOFLOXACIN 750MG-D5W PMX 750 MG in DEXTROSE/WATER 1 150ML.BAG IVPB ONE (18:56)
[2024-05-17] MEDS: PIPERACILLIN-TAZOBACTAM 3.375 GM in SODIUM CHLORIDE 0.9% 100 ML IVPB SCH (20:30)
[2024-05-17] MEDS: POTASSIUM CHLORIDE ER 20 MEQ TAB.ER PO SCH (20:32)
[2024-05-17] MEDS: PANTOPRAZOLE 40 MG TABLET PO SCH (20:32)
[2024-05-17] MEDS: ATORVASTATIN 20 MG TAB PO SCH (20:32)
[2024-05-17] MEDS: IPRATROPIUM-ALBUTEROL 3 ML NEB INHALATION SCH (20:38)
[2024-05-17] MEDS ORDERED: FUROSEMIDE 40 MG TAB PO SCH (21:00)
[2024-05-17 21:55] LABS: Glucose,Whole Blood 319 mg/dL (70-110)
[2024-05-17] MEDS ORDERED: DEXTROSE 50% SYRINGE 50 ML IVP PRN ×2 (21:58)
[2024-05-17] MEDS: INSULIN ASPART (NovoLOG) 100 UNIT/ML VIAL SQ SCH (22:08)
[2024-05-18 06:23] LABS: Glucose,Whole Blood 319 mg/dL (70-110)
[2024-05-18] MEDS: ASPIRIN 81 MG PO SCH (08:32)
[2024-05-18] MEDS: LOSARTAN 50 MG TAB PO SCH (08:32)
[2024-05-18] MEDS: MONTELUKAST 10 MG TAB PO SCH (08:32)
[2024-05-18] MEDS: CHOLESTYRAMINE (WITH SUGAR) 4 GM PACKET PO SCH (08:32)
[2024-05-18] MEDS: VIT A,C & E-LUTEIN-MINERALS 1 EACH TAB PO SCH (08:32)
--- NOTE | 2024-05-18 10:43 | HP ---
HISTORY AND PHYSICAL HISTORY: This is a white male came into the hospital, a 74-year-old, with respiratory distress for the past week. He has history of severe sleep apnea, COPD, asthma, came in with acute hypoxemic respiratory failure, saturating 88% on 3 to 4 L. He used BiPAP at night, cough, congestion, shortness of breath, quite sick. COVID tests were negative so far. Sent to the emergency room where yesterday he was admitted for respiratory failure. HOME MEDICINES: 1. Testosterone. 2. Singulair. 3. Metformin. 4. Zocor. 5. DuoNeb q.i.d. 6. Glucotrol 1.25 b.i.d. 7. Cozaar 100 mg daily. 8. Lopressor 50 b.i.d. 9. Cholestyramine packet 4 mg daily. 10.Mobic 15 mg daily. 11.Prilosec 20 b.i.d. PAST MEDICAL HISTORY: Right ankle fracture, osteoarthritis, severe COPD, hearing difficulty. SURGICAL HISTORY: Cholecystectomy, heart catheterization, orthopedic surgery, breast CA surgery. PAST FAMILY HISTORY: Father cancer, dementia, diabetes,. Mother, dementia and diabetes. Sister, diabetes. PHYSICAL EXAMINATION: GENERAL: It looks like he is in acute respiratory distress. VITAL SIGNS: Respiratory rate 25. CARDIOVASCULAR: S1, S2. LUNGS: Scattered rhonchi and wheeze x4. Decreased breath sounds x4. GI: Soft, nontender. EXTREMITIES: No cyanosis. 2+ edema. PSYCH: Normal affect. INTEGUMENT: Skin dry and intact. LABORATORY DATA: EKG, sinus tachycardia. Sodium 134, potassium 4.4. Hemoglobin 14.3. Troponins negative. BNP 1400. IMPRESSION: Bilateral pneumonia, community-acquired. . IV antibiotics with Levaquin, azithromycin, cefepime. Get Infectious Disease consult as appears to be septic from bilateral pneumonia, and CAT scans of the chest. Prognosis guarded. MMODL / IJN: [id number] /
[2024-05-18 11:58] LABS: Glucose,Whole Blood 508 mg/dL (70-110)
[2024-05-18 11:58] LABS: Glucose,Whole Blood 499 mg/dL (70-110)
--- NOTE | 2024-05-18 12:24 | P.CRDCN ---
History of Present Illness Consult date: 05/18/24 Reason for Consult (text): Acute pulmonary edema History of present illness: This is a 74-year-old male patient of Dr. Anusha Lyman with past medical history of coronary artery disease, hypertension, dyslipidemia, diabetes mellitus type 2, obstructive sleep apnea on CPAP, GERD. We have been asked to evaluate the patient for acute pulmonary edema. Patient states that he developed shortness of breath starting on last Thursday the day before . He states he has been following a low-sodium diet and has been taking all of his medications as directed. He denies having any chest pain. No fever or chills. No lower extremity edema. He does have a cough that is nonproductive. Patient has been started on IV Lasix 40 mg every 8 hours. He states he has been urinating quite a bit. Patient is also been started on Levaquin and Zosyn for pneumonia. He states his breathing is a little bit better from yesterday. Patient was a sm oker and quit in 1990. Blood pressure 145/83, heart rate 89, pulse ox 94% on 6 L nasal cannula. Patient presented with pulse ox of 80%. -EKG: Sinus rhythm with right bundle branch block -Chest x-ray: Diffuse airspace opacities correlate for pulmonary congestion versus atypical pneumonia. COPD. -CTA of the chest: No PE. Concern for pneumonia. Trace bilateral pleural effusions. Mediastinal adenopathy and splenomegaly. -Laboratory studies: WBC 9.4, hemoglobin 14.3. D-dimer 0.91. Sodium 134, potassium 3.4, BUN 13, creatinine 0.84. Influenza A, influenza B, RSV, COVID-19 not detected. proBNP 2400 -Home cardiac medications: Aspirin 81 mg daily, Coreg 6.25 mg twice daily, Lasix 40 mg twice daily, losartan 100 mg daily, potassium chloride 20 mill equivalents twice daily, simvastatin 40 mg at bedtime. -Lexiscan Cardiolite stress test performed in the office 01/29/2023: Negative stress test by EKG criteria. Normal myocardial perfusion and function. -Echocardiogram performed in the office 2012 revealed normal LV function. Review Of Systems: At the time of my exam: CONSTITUTIONAL: Denies fever or chills. HEENT: Denies blurred vision, vision changes, or eye pain. Denies hemoptysis CARDIOVASCULAR: Denies chest pain. Denies orthopnea. Denies PND. Denies palpitations RESPIRATORY: Reports shortness of breath. GASTROINTESTINAL: Denies abdominal pain. Denies nausea or vomiting. HEMATOLOGIC: Denies bleeding disorders. GENITOURINARY: Denies any blood in urine. SKIN: Denies puritis. Denies rash. Physical examination: Gen: This is a 74-year-old male in no acute distress VS: reviewed HEENT: Head is atraumatic, normocephalic. Pupils equal, round. Sclerae is anicteric. NECK: Supple. No JVD. LUNGS: Crackles bilaterally. No intercostal retractions. HEART: Regular rate and rhythm. No murmur. ABDOMEN: Soft No tenderness. EXTREMITIES: No pedal edema. No calf tenderness. NEUROLOGICAL: Patient is awake, alert and oriented x3. Assessment: Acute hypoxic respiratory failure secondary to pneumonia with possible component of diastolic heart failure Acute diastolic heart failure Coronary artery disease Hypertension Dyslipidemia Diabetes mellitus type 2 Obstructive sleep apnea on CPAP Plan: Resume patient's home cardiac medications Decrease IV Lasix to 40 mg daily Monitor SAILAJA, daily weights, electrolytes and renal function Obtain 2-D echocardiogram and Doppler study to assess cardiac structure and function Further recommendations to follow based upon clinical course Thank you kindly for this consultation. Nurse practitioner note has been reviewed, I agree with documented findings and plan of care. Patient was seen and examined. Past Medical History Past Medical History: Asthma, COPD, Hearing Disorder / Deafness, Hyperlipidemia, Hypertension, Pneumonia Additional Past Medical History / Comment(s): R and L hearing difficulty, emphysema, back pain, arthritis, R ankle fracture. Polycythemia History of Any Multi-Drug Resistant Organisms: None Reported Past Surgical History: Cholecystectomy, Heart Catheterization, Orthopedic Surgery, Prostate Surgery Additional Past Surgical History / Comment(s): stress test, L rotator cuff, L and R shoulder surgery Past Anesthesia/Blood Transfusion Reactions: No Reported Reaction Past Psychological History: No Psychological Hx Reported Additional Psychological History / Comment(s): Pt resides with his spouse. He is independent normally. He uses no assistive device. He has no home care. He drives. He is trying to get a nebulizer for home at this time and working on the paperwork for this with [employer]. He has a broken blood glucose monitor at home. Smoking Status: Former smoker Past Alcohol Use History: Occasional Additional Past Alcohol Use History / Comment(s): Pt started smoking in 1966 and quit in 1990. He was a 3 ppd smoker. Past Drug Use History: None Reported - Past Family History Father Family Medical History: Cancer, Dementia, Diabetes Mellitus Additional Family Medical History / Comment(s): parkinsons, colon cancer, prostate cancer. Father at age 82 yrs. Mother Family Medical History: Dementia, Diabetes Mellitus Additional Family Medical History / Comment(s): Mother at age 87yrs. Sister(s) Family Medical History: Diabetes Mellitus Brother(s) Family Medical History: Diabetes Mellitus Medications and Allergies Home Medications Medication Instructions Recorded Confirmed Type metFORMIN HCL [Glucophage] 500 mg PO BID 10/24/13 05/17/24 History Garlic 1 tab PO DAILY 04/25/15 05/17/24 History Montelukast [Singulair] 10 mg PO DAILY 05/20/17 05/17/24 History Testosterone Cypionate 200 mg IM Q14D 05/20/17 05/17/24 History [Depo-Testosterone] Furosemide [Lasix] 40 mg PO BID 02/07/18 05/17/24 History Losartan Potassium [Cozaar] 100 mg PO DAILY 05/12/18 05/17/24 History Cholestyramine (with Sugar) 4 gm PO DAILY 02/14/22 05/17/24 History [Questran Packet] Meloxicam [Mobic] 15 mg PO HS 02/14/22 05/17/24 History Omeprazole [PriLOSEC] 40 mg PO HS 02/14/22 05/17/24 History Aspirin EC [Ecotrin Low Dose] 81 mg PO DAILY 05/17/24 05/17/24 History Fexofenadine/Pseudoephedrine 1 tab PO DAILY 05/17/24 05/17/24 History [Kayla-D 24 Hour Tablet] Hydrocodone/Acetaminophen [[place] 1 tab PO DAILY PRN 05/17/24 05/17/24 History 5-325] Nac 600mg 1 cap PO DAILY 05/17/24 05/17/24 History Pantoprazole Sodium [Protonix] 40 mg PO BID 05/17/24 05/17/24 History Potassium Chloride ER [K-Dur 10] 20 meq PO BID 05/17/24 05/17/24 History Simvastatin [Zocor] 40 mg PO HS 05/17/24 05/17/24 History Vit C/E/Zn/Coppr/Lutein/Zeaxan 1 cap PO DAILY 05/17/24 05/17/24 History [Preservision Areds 2 Softgel] carvediloL [Coreg] 6.25 mg PO BID 05/17/24 05/17/24 History Allergies Allergy/AdvReac Type Severity Reaction Status Date / Time azithromycin Allergy Swelling Verified 05/17/24 12:40 Physical Exam Vitals: Vital Signs Temp Pulse Pulse Resp BP BP Pulse Ox 05/18/24 04:11 97.5 F L 89 18 145/83 94 L 05/18/24 03:54 94 L 05/18/24 03:53 97.5 F L 89 18 145/83 94 L 05/18/24 02:00 79 18 05/18/24 00:12 05/18/24 00:00 97.7 F 79 18 104/68 96 05/17/24 22:06 05/17/24 21:58 05/17/24 21:45 18 94 L 05/17/24 21:42 88 L 05/17/24 21:17 98.2 F 97 18 103/63 85 L 05/17/24 20:46 96 05/17/24 20:44 91 L 05/17/24 20:38 94 05/17/24 20:33 90 20 111/67 90 L 05/17/24 18:38 98.1 F 102 H 20 130/82 90 L 05/17/24 17:28 108 H 24 135/82 91 L 05/17/24 14:56 100 18 132/79 92 L 05/17/24 14:33 100 24 95/77 92 L 05/17/24 12:46 24 05/17/24 12:37 98.5 F 109 H 22 128/71 80 L FiO2 05/18/24 04:11 05/18/24 03:54 05/18/24 03:53 05/18/24 02:00 05/18/24 00:12 50 05/18/24 00:00 60 05/17/24 22:06 60 05/17/24 21:58 100 05/17/24 21:45 60 05/17/24 21:42 05/17/24 21:17 05/17/24 20:46 05/17/24 20:44 05/17/24 20:38 12/03/24 20:33 05/17/24 18:38 05/17/24 17:28 05/17/24 14:56 05/17/24 14:33 05/17/24 12:46 05/17/24 12:37 Intake and Output 05/17/24 05/18/24 05/18/24 22:59 06:59 14:59 Intake Total 540 540 Balance 540 540 Intake: Oral 540 540 Other: Voiding Method Toilet # Voids 1 1 Weight 100.4 kg Results 05/17/24 13:36 05/17/24 13:36 Cardiac Enzymes 05/17/24 05/17/24 Range/Units 13:36 13:36 AST 28 (17-59) U/L Troponin I <0.012 (0.000-0.034) ng/mL Coagulation 05/17/24 Range/Units 13:36 PT 12.0 (10.0-12.5) sec APTT 27.0 (22.0-30.0) sec CBC 05/17/24 Range/Units 13:36 WBC 9.4 (3.8-10.6) k/uL RBC 6.56 H (4.30-5.90) m/uL Hgb 14.3 (13.0-17.5) gm/dL Hct 48.5 (39.0-53.0) % Plt Count 165 (150-450) k/uL Comprehensive Metabolic Panel 05/17/24 Range/Units 13:36 Sodium 134 L (137-145) mmol/L Potassium 4.4 (3.5-5.1) mmol/L Chloride 104 (98-107) mmol/L Carbon Dioxide 22 (22-30) mmol/L BUN 13 (9-20) mg/dL Creatinine 0.83 (0.66-1.25) mg/dL Glucose 199 H (74-99) mg/dL Calcium 8.5 (8.4-10.2) mg/dL AST 28 (17-59) U/L ALT 16 (4-49) U/L Alkaline Phosphatase 90 (38-126) U/L Total Protein 5.7 L (6.3-8.2) g/dL Albumin 3.2 L (3.5-5.0) g/dL Current Medications Generic Name Dose Route Start Last Admin Trade Name Derrick PRN Reason Stop Dose Admin Hydrocodone Bitart/Acetaminophen 1 each 05/17/24 18:24 Hydrocodone/Apap 5-325mg 1 Each Tab PO DAILY PRN pain Albuterol/Ipratropium 3 ml 05/17/24 20:00 05/17/24 20:38 Ipratropium-Albuterol 3 Ml Neb INHALATION 3 ml RT-QID MEKHI Administration Aspirin 81 mg 05/18/24 09:00 Aspirin 81 Mg PO DAILY [facility] Atorvastatin Calcium 20 mg 05/17/24 21:00 05/17/24 20:32 Atorvastatin 20 Mg Tab PO 20 mg HS MEKHI Administration Carvedilol 6.25 mg 05/17/24 18:30 05/18/24 06:45 Carvedilol 6.25 Mg Tab PO 6.25 mg AC-BID MEKHI Administration Cholestyramine Resin 4 gm 05/18/24 09:00 Cholestyramine (With Sugar) 4 Gm Packet PO DAILY [facility] Dextrose/Water 25 ml 05/17/24 21:58 Dextrose 50% Syringe 50 Ml IVP PER PROTOCOL PRN Hypoglycemia Protocol Dextrose/Water 50 ml 05/17/24 21:58 Dextrose 50% Syringe 50 Ml IVP PER PROTOCOL PRN Hypoglycemia Protocol Furosemide 40 mg 05/17/24 16:00 05/18/24 00:39 Furosemide 10 Mg/Ml 4 Ml Vial IV Not Given Q8HR [facility] Piperacillin Sod/Tazobactam 100 mls @ 25 mls/hr 05/17/24 20:00 05/18/24 03:49 Sod 3.375 gm/ Sodium Chloride IVPB 25 mls/hr Q8H MEKHI Administration Protocol Levofloxacin 750 mg/ IV 150 mls @ 100 mls/hr 05/18/24 18:00 Solution IVPB Q24H [facility] Protocol Insulin Aspart 0 unit 05/17/24 21:58 05/18/24 06:46 Insulin Aspart (Novolog) 100 Unit/Ml Vial SQ 8 unit ACHS [facility] Administration Protocol Losartan Potassium 100 mg 05/18/24 09:00 Losartan 50 Mg Tab PO DAILY [facility] Methylprednisolone Sodium Succinate 40 mg 05/17/24 19:00 05/18/24 03:52 Methylprednisolone Sod Succi 40 Mg/Ml 1 Ml Vial IV 40 mg Q8H MEKHI Administration Montelukast Sodium 10 mg 05/18/24 09:00 Montelukast 10 Mg Tab PO DAILY [facility] Multivitamins/Minerals 1 each 05/18/24 09:00 Vit A,C & D-Gbjjib-Wvrsdbdv 1 Each Tab PO DAILY [facility] Nitroglycerin 1 inch 05/17/24 18:00 05/18/24 06:45 Nitroglycerin Oint 1 Inch/Gm Packet TOPICAL 05/18/24 17:59 1 inch Q6HR MEKHI Administration Pantoprazole Sodium 40 mg 05/17/24 21:00 05/17/24 20:32 Pantoprazole 40 Mg Tablet PO 40 mg BID MEKHI Administration Potassium Chloride 20 meq 05/17/24 21:00 05/17/24 20:32 Potassium Chloride Er 20 Meq Tab.Er PO 20 meq BID MEKHI Administration Intake and Output 05/17/24 05/18/24 05/18/24 22:59 06:59 14:59 Intake Total 540 540 Balance 540 540 Intake: Oral 540 540 Other: Voiding Method Toilet # Voids 1 1 Weight 100.4 kg 05/17/24 13:36 05/17/24 13:36
[2024-05-18 13:37] VITALS: BMI 31.7
[2024-05-18 16:45] LABS: Glucose,Whole Blood 350 mg/dL (70-110)
[2024-05-18] MEDS: LEVOFLOXACIN 750MG-D5W PMX 750 MG in DEXTROSE/WATER 1 150ML.BAG IVPB SCH (17:04)
--- NOTE | 2024-05-18 17:23 | P.CNPUL ---
History of Present Illness Consult date: 05/18/24 Reason for consult: dyspnea, cough, pneumonia Chief complaint: Shortness of breath History of present illness: 74-year-old male presented emergency department with increasing shortness of breath for over a week, seen by PMD patient received steroids shot and was sent to emergency department, on arrival she was noted to have saturation of 80% in PMDs office. On arrival his chest x-ray significant with diffuse airspace opacities with findings suggestive of atypical pneumonia versus pulmonary vascular congestion and baseline COPD. CT scan of the chest negative for pulmonary embolism, patchy airspace opacities seen more on the right side compared to left side involving right middle lobe and left lower lobe likely pneumonia basal atelectasis seen with tiny effusion along with reactive mediastinal lymphadenopathy and splenomegaly. Patient denies any fever or chills denies any sputum production has been having ongoing off-and-on cough, patient has been on IV Zosyn and Levaquin with bronchodilators and IV steroids, patient has been diuresed with IV furosemide as well oxygen saturation was 6 L nasal cannula improved to mid 90s. Labs are significant for microcytosis and mild thrombocytopenia, D-dimer mildly elevated, chemistry significant for BUN/creatinine 13/0.83 glucose is 399, influenza A as well as influenza B and COVID with RSV has been negative Prior medical history significant dyslipidemia, coronary artery disease, obstructive sleep apnea, type 2 diabetes mellitus hyperglycemia, chronic persis tent asthma, congestive heart failure, COPD, hypertension hypertensive cardiovascular disease, hearing impaired, cholecystectomy polycythemia, Review of Systems All systems: negative Past Medical History Past Medical History: Asthma, COPD, Hearing Disorder / Deafness, Hyperlipidemia, Hypertension, Pneumonia Additional Past Medical History / Comment(s): R and L hearing difficulty, emphysema, back pain, arthritis, R ankle fracture. Polycythemia History of Any Multi-Drug Resistant Organisms: None Reported Past Surgical History: Cholecystectomy, Heart Catheterization, Orthopedic Surgery, Prostate Surgery Additional Past Surgical History / Comment(s): stress test, L rotator cuff, L and R shoulder surgery Past Anesthesia/Blood Transfusion Reactions: No Reported Reaction Past Psychological History: No Psychological Hx Reported Additional Psychological History / Comment(s): Pt resides with his spouse. He is independent normally. He uses no assistive device. He has no home care. He drives. He is trying to get a nebulizer for home at this time and working on the paperwork for this with [employer]. He has a broken blood glucose monitor at home. Smoking Status: Former smoker Past Alcohol Use History: Occasional Additional Past Alcohol Use History / Comment(s): Pt started smoking in 1966 and quit in 1990. He was a 3 ppd smoker. Past Drug Use History: None Reported - Past Family History Father Family Medical History: Cancer, Dementia, Diabetes Mellitus Additional Family Medical History / Comment(s): parkinsons, colon cancer, prostate cancer. Father at age 82 yrs. Mother Family Medical History: Dementia, Diabetes Mellitus Additional Family Medical History / Comment(s): Mother at age 87yrs. Sister(s) Family Medical History: Diabetes Mellitus Brother(s) Family Medical History: Diabetes Mellitus Medications and Allergies Home Medications Medication Instructions Recorded Confirmed Type metFORMIN HCL [Glucophage] 500 mg PO BID 10/24/13 05/17/24 History Garlic 1 tab PO DAILY 04/25/15 05/17/24 History Montelukast [Singulair] 10 mg PO DAILY 05/20/17 05/17/24 History Testosterone Cypionate 200 mg IM Q14D 05/20/17 05/17/24 History [Depo-Testosterone] Furosemide [Lasix] 40 mg PO BID 02/07/18 05/17/24 History Losartan Potassium [Cozaar] 100 mg PO DAILY 05/12/18 05/17/24 History Cholestyramine (with Sugar) 4 gm PO DAILY 02/14/22 05/17/24 History [Questran Packet] Meloxicam [Mobic] 15 mg PO HS 02/14/22 05/17/24 History Omeprazole [PriLOSEC] 40 mg PO HS 02/14/22 05/17/24 History Aspirin EC [Ecotrin Low Dose] 81 mg PO DAILY 05/17/24 05/17/24 History Fexofenadine/Pseudoephedrine 1 tab PO DAILY 05/17/24 05/17/24 History [Kayla-D 24 Hour Tablet] Hydrocodone/Acetaminophen [[place] 1 tab PO DAILY PRN 05/17/24 05/17/24 History 5-325] Nac 600mg 1 cap PO DAILY 05/17/24 05/17/24 History Pantoprazole Sodium [Protonix] 40 mg PO BID 05/17/24 05/17/24 History Potassium Chloride ER [K-Dur 10] 20 meq PO BID 05/17/24 05/17/24 History Simvastatin [Zocor] 40 mg PO HS 05/17/24 05/17/24 History Vit C/E/Zn/Coppr/Lutein/Zeaxan 1 cap PO DAILY 05/17/24 05/17/24 History [Preservision Areds 2 Softgel] carvediloL [Coreg] 6.25 mg PO BID 05/17/24 05/17/24 History Allergies Allergy/AdvReac Type Severity Reaction Status Date / Time azithromycin Allergy Swelling Verified 05/17/24 12:40 Physical Exam Vitals: Vital Signs Temp Pulse Pulse Resp BP BP Pulse Ox 05/18/24 16:33 92 05/18/24 16:00 93 18 111/71 92 L 05/18/24 14:00 88 18 05/18/24 13:02 92 05/18/24 12:50 88 05/18/24 12:00 88 18 146/80 91 L 05/18/24 09:39 92 05/18/24 09:26 92 05/18/24 08:00 97.6 F 89 18 137/88 92 L 05/18/24 04:11 97.5 F L 89 18 145/83 94 L 05/18/24 03:54 94 L 05/18/24 03:53 97.5 F L 89 18 145/83 94 L 05/18/24 02:00 79 18 05/18/24 00:12 05/18/24 00:00 97.7 F 79 18 104/68 96 05/17/24 22:06 05/17/24 21:58 05/17/24 21:45 18 94 L 05/17/24 21:42 88 L 05/17/24 21:17 98.2 F 97 18 103/63 85 L 05/17/24 20:46 96 05/17/24 20:44 91 L 05/17/24 20:38 94 05/17/24 20:33 90 20 111/67 90 L 05/17/24 18:38 98.1 F 102 H 20 130/82 90 L 05/17/24 17:28 108 H 24 135/82 91 L FiO2 05/18/24 16:33 05/18/24 16:00 05/18/24 14:00 05/18/24 13:02 05/18/24 12:50 05/18/24 12:00 05/18/24 09:39 05/18/24 09:26 05/18/24 08:00 05/18/24 04:11 05/18/24 03:54 05/18/24 03:53 05/18/24 02:00 05/18/24 00:12 50 05/18/24 00:00 60 05/17/24 22:06 60 05/17/24 21:58 100 05/17/24 21:45 60 05/17/24 21:42 05/17/24 21:17 05/17/24 20:46 05/17/24 20:44 05/17/24 20:38 05/17/24 20:33 05/17/24 18:38 05/17/24 17:28 Intake and Output 05/18/24 05/18/24 05/18/24 06:59 14:59 22:59 Intake Total 540 Balance 540 Intake: Oral 540 Other: Voiding Method Toilet # Voids 1 Weight 100.4 kg 100.4 kg - Constitutional General appearance: average body habitus, cooperative, disheveled, mild distress - EENT Eyes: EOMI, PERRLA ENT: normal oropharynx Ears: bilateral: normal - Neck Neck: normal ROM Carotids: bilateral: upstroke normal - Respiratory Respiratory: bilateral: diminished, rales - Cardiovascular Rhythm: regular Heart sounds: normal: S1, S2 - Gastrointestinal General gastrointestinal: normal bowel sounds, soft - Integumentary Integumentary: normal turgor - Neurologic Neurologic: CNII-XII intact - Musculoskeletal Musculoskeletal: gait normal, generalized weakness, strength equal bilaterally - Psychiatric Psychiatric: A&O x's 3, appropriate affect, intact judgment & insight Results - Laboratory Findings CBC and BMP: 05/17/24 13:36 05/17/24 13:36 PT/INR, D-dimer PT 12.0 sec (10.0-12.5) 05/17/24 13:36 INR 1.1 (<1.2) 05/17/24 13:36 D-Dimer 0.91 mg/L FEU (<0.60) H 05/17/24 13:36 Abnormal lab findings: Abnormal Labs 05/17/24 05/17/24 05/17/24 13:36 13:36 13:36 RBC 6.56 H MCV 74.0 L MCH 21.9 L MCHC 29.6 L RDW 17.8 H Neutrophils # 7.8 H Lymphocytes # 0.7 L D-Dimer 0.91 H Sodium 134 L Glucose 199 H POC Glucose (mg/dL) Hemoglobin A1c Total Bilirubin 1.4 H Total Protein 5.7 L Albumin 3.2 L 05/17/24 05/18/24 05/18/24 21:53 06:20 06:36 RBC MCV MCH MCHC RDW Neutrophils # Lymphocytes # D-Dimer Sodium Glucose POC Glucose (mg/dL) 319 H 319 H Hemoglobin A1c 9.7 H Total Bilirubin Total Protein Albumin 05/18/24 05/18/24 11:52 11:53 RBC MCV MCH MCHC RDW Neutrophils # Lymphocytes # D-Dimer Sodium Glucose POC Glucose (mg/dL) 508 H* 499 H Hemoglobin A1c Total Bilirubin Total Protein Albumin - Diagnostic Findings Chest x-ray: report reviewed, image reviewed CT scan - chest: report reviewed, image reviewed (Finding as noted above) Assessment and Plan Assessment: Acute hypoxic respiratory failure Bilateral healthcare associated pneumonia Mediastinal lymphadenopathy likely reactive however lymphoproliferative disorder cannot be excluded Splenomegaly as above Chronic persistent asthma with acute exacerbation COPD with acute exacerbation Acute on chronic diastolic heart failure Coronary artery disease Hypertension hypertensive cardiovascular disease Type 2 diabetes mellitus with hyperglycemia uncontrolled Sleep disordered breathing and sleep apnea Plan: Consider hematology oncology evaluation to evaluate for lymphoproliferative disorder Continue gentle diuresis Broad-spectrum antibiotics IV steroids Breathing treatments Supplemental oxygen titrate down as tolerated Patient advised to continue CPAP likely will need CPAP retitration study Further recommendations pending plan of care as per clinical response the patient Time with Patient: Greater than 30
[2024-05-18 20:24] LABS: Glucose,Whole Blood 458 mg/dL (70-110)
--- NOTE | 2024-05-18 22:28 | P.CONS ---
History of Present Illness - Reason for Consult Consult date: 05/18/24 CAP Requesting physician: Terrell Owens - Chief Complaint Shortness of breath and cough x few days - History of Present Illness Patient is a 74-year-old male with a past medical history significant for COPD hypertension hyperlipidemia pneumonia patient presenting to the hospital for evaluation of increasing shortness of breath that apparently has been getting worse since patient has been complaining of shortness of breath on minimal exertion even at rest he also have a cough which is moderate intensity bringing some whitish yellowish sputum but no hemoptysis patient denies having any pleuritic chest pain patient went to see his PCP y with the patient was noted to be hypoxic with O2 sats of 80% he did receive a dose of steroids and subsequently has been sent to the ER for further evaluation on presentation to the hospital the patient was afebrile and no fever have been recorded subsequently patient was not tachycardic or hypotensive he was hypoxic with O2 sats of 80% on presentation currently on 6 L nasal cannula oxygen patient did have white count 9.4 with a left shift creatinine has been normal electrolytes are normal liver enzymes normal except bilirubin of 1.4 he tested negative for influenza RSV and COVID patient did have a chest x-ray diffuse airspace opacity correlate for pulmonary congestion versus atypical pneumonia also have a CT angiogram of the chest with no evidence of PE patchy airspace opacities within the right middle lobe and medial left lower lobe concerning for pneumonia metastatic adenopathy with prominent bilateral hilar lymph nodes likely reactive to pneumonia patient has been started on Zosyn Levaquin infectious was consulted for further management of antibiotic therapy Review of Systems Positive point and negatives has been mentioned in the HPI, complete review of systems was performed and all other systems are negative Past Medical History Past Medical History: Asthma, COPD, Hearing Disorder / Deafness, Hyperlipidemia, Hypertension, Pneumonia Additional Past Medical History / Comment(s): R and L hearing difficulty, emphysema, back pain, arthritis, R ankle fracture. Polycythemia History of Any Multi-Drug Resistant Organisms: None Reported Past Surgical History: Cholecystectomy, Heart Catheterization, Orthopedic Surgery, Prostate Surgery Additional Past Surgical History / Comment(s): stress test, L rotator cuff, L and R shoulder surgery Past Anesthesia/Blood Transfusion Reactions: No Reported Reaction Past Psychological History: No Psychological Hx Reported Additional Psychological History / Comment(s): Pt resides with his spouse. He is independent normally. He uses no assistive device. He has no home care. He drives. He is trying to get a nebulizer for home at this time and working on the paperwork for this with [employer]. He has a broken blood glucose monitor at home. Smoking Status: Former smoker Past Alcohol Use History: Occasional Additional Past Alcohol Use History / Comment(s): Pt started smoking in 1966 and quit in 1990. He was a 3 ppd smoker. Past Drug Use History: None Reported - Past Family History Father Family Medical History: Cancer, Dementia, Diabetes Mellitus Additional Family Medical History / Comment(s): parkinsons, colon cancer, prostate cancer. Father at age 82 yrs. Mother Family Medical History: Dementia, Diabetes Mellitus Additional Family Medical History / Comment(s): Mother at age 87yrs. Sister(s) Family Medical History: Diabetes Mellitus Brother(s) Family Medical History: Diabetes Mellitus Medications and Allergies Home Medications Medication Instructions Recorded Confirmed Type metFORMIN HCL [Glucophage] 500 mg PO BID 10/24/13 05/17/24 History Garlic 1 tab PO DAILY 04/25/15 05/17/24 History Montelukast [Singulair] 10 mg PO DAILY 05/20/17 05/17/24 History Testosterone Cypionate 200 mg IM Q14D 05/20/17 05/17/24 History [Depo-Testosterone] Furosemide [Lasix] 40 mg PO BID 02/07/18 05/17/24 History Losartan Potassium [Cozaar] 100 mg PO DAILY 05/12/18 05/17/24 History Cholestyramine (with Sugar) 4 gm PO DAILY 02/14/22 05/17/24 History [Questran Packet] Meloxicam [Mobic] 15 mg PO HS 02/14/22 05/17/24 History Omeprazole [PriLOSEC] 40 mg PO HS 02/14/22 05/17/24 History Aspirin EC [Ecotrin Low Dose] 81 mg PO DAILY 05/17/24 05/17/24 History Fexofenadine/Pseudoephedrine 1 tab PO DAILY 05/17/24 05/17/24 History [Kayla-D 24 Hour Tablet] Hydrocodone/Acetaminophen [Froid 1 tab PO DAILY PRN 05/17/24 05/17/24 History 5-325] Nac 600mg 1 cap PO DAILY 05/17/24 05/17/24 History Pantoprazole Sodium [Protonix] 40 mg PO BID 05/17/24 05/17/24 History Potassium Chloride ER [K-Dur 10] 20 meq PO BID 05/17/24 05/17/24 History Simvastatin [Zocor] 40 mg PO HS 05/17/24 05/17/24 History Vit C/E/Zn/Coppr/Lutein/Zeaxan 1 cap PO DAILY 05/17/24 05/17/24 History [Preservision Areds 2 Softgel] carvediloL [Coreg] 6.25 mg PO BID 05/17/24 05/17/24 History Allergies Allergy/AdvReac Type Severity Reaction Status Date / Time azithromycin Allergy Swelling Verified 05/17/24 12:40 Physical Exam Vitals: Vital Signs Temp Pulse Pulse Resp BP BP Pulse Ox 05/18/24 09:39 92 05/18/24 09:26 92 05/18/24 08:00 97.6 F 89 18 137/88 92 L 05/18/24 04:11 97.5 F L 89 18 145/83 94 L 05/18/24 03:54 94 L 05/18/24 03:53 97.5 F L 89 18 145/83 94 L 05/18/24 02:00 79 18 05/18/24 00:12 05/18/24 00:00 97.7 F 79 18 104/68 96 05/17/24 22:06 05/17/24 21:58 05/17/24 21:45 18 94 L 05/17/24 21:42 88 L 05/17/24 21:17 98.2 F 97 18 103/63 85 L 05/17/24 20:46 96 05/17/24 20:44 91 L 05/17/24 20:38 94 05/17/24 20:33 90 20 111/67 90 L 05/17/24 18:38 98.1 F 102 H 20 130/82 90 L 05/17/24 17:28 108 H 24 135/82 91 L 05/17/24 14:56 100 18 132/79 92 L 05/17/24 14:33 100 24 95/77 92 L 05/17/24 12:46 24 05/17/24 12:37 98.5 F 109 H 22 128/71 80 L FiO2 05/18/24 09:39 05/18/24 09:26 05/18/24 08:00 05/18/24 04:11 05/18/24 03:54 05/18/24 03:53 05/18/24 02:00 05/18/24 00:12 50 05/18/24 00:00 60 05/17/24 22:06 60 05/17/24 21:58 100 05/17/24 21:45 60 05/17/24 21:42 05/17/24 21:17 05/17/24 20:46 05/17/24 20:44 05/17/24 20:38 05/17/24 20:33 05/17/24 18:38 05/17/24 17:28 05/17/24 14:56 05/17/24 14:33 05/17/24 12:46 05/17/24 12:37 Intake and Output 05/17/24 05/18/24 05/18/24 22:59 06:59 14:59 Intake Total 540 540 Balance 540 540 Intake: Oral 540 540 Other: Voiding Method Toilet # Voids 1 1 Weight 100.4 kg GENERAL DESCRIPTION: Elderly male lying in bed, no distress. No tachypnea or accessory muscle of respiration use. HEENT: Shows Pallor , no scleral icterus. Oral mucous membrane is dry. NECK: Trachea central, no thyromegaly. LUNGS: Unlabored breathing. Coarse breath sounds bilaterally HEART: S1, S2, regular rate and rhythm. No loud murmur ABDOMEN: Soft, no tenderness , guarding or rigidity, no organomegaly EXTREMITIES: No edema of feet. SKIN: No rash, no masses palpable. NEUROLOGICAL: The patient is awake, alert, oriented x3, mood and affect normal. Results CBC & Chem 7: 05/17/24 13:36 05/17/24 13:36 Labs: Abnormal Lab Results - Last 24 Hours (Table) 05/17/24 05/17/24 05/17/24 Range/Units 13:36 13:36 13:36 RBC 6.56 H (4.30-5.90) m/uL MCV 74.0 L (80.0-100.0) fL MCH 21.9 L (25.0-35.0) pg MCHC 29.6 L (31.0-37.0) g/dL RDW 17.8 H (11.5-15.5) % Neutrophils # 7.8 H (1.3-7.7) k/uL Lymphocytes # 0.7 L (1.0-4.8) k/uL D-Dimer 0.91 H (<0.60) mg/L FEU Sodium 134 L (137-145) mmol/L Glucose 199 H (74-99) mg/dL POC Glucose (mg/dL) (70-110) mg/dL Hemoglobin A1c (<=6.0) % Total Bilirubin 1.4 H (0.2-1.3) mg/dL Total Protein 5.7 L (6.3-8.2) g/dL Albumin 3.2 L (3.5-5.0) g/dL 05/17/24 05/18/24 05/18/24 Range/Units 21:53 06:20 06:36 RBC (4.30-5.90) m/uL MCV (80.0-100.0) fL MCH (25.0-35.0) pg MCHC (31.0-37.0) g/dL RDW (11.5-15.5) % Neutrophils # (1.3-7.7) k/uL Lymphocytes # (1.0-4.8) k/uL D-Dimer (<0.60) mg/L FEU Sodium (137-145) mmol/L Glucose (74-99) mg/dL POC Glucose (mg/dL) 319 H 319 H (70-110) mg/dL Hemoglobin A1c 9.7 H (<=6.0) % Total Bilirubin (0.2-1.3) mg/dL Total Protein (6.3-8.2) g/dL Albumin (3.5-5.0) g/dL Assessment and Plan (1) Hypoxia Current Visit: No Status: Acute Code(s): R09.02 - HYPOXEMIA SNOMED Code(s): 229952128 (2) Pneumonia Current Visit: No Status: Acute Code(s): J18.9 - PNEUMONIA, UNSPECIFIED ORGANISM SNOMED Code(s): 522276696 Plan: 1patient presented to hospital with increasing shortness of breath patient also have a cough but got some yellowish sputum with evidence of multifocal infiltrate on the chest x-ray as well as CT suspicious for pneumonia likely community-acquired and a question of possible atypical pathogen. 2we will check urine for Legionella antigen and check mycoplasma IgM. 3patient to continue with the Levaquin while waiting for the workup to be completed. We will follow on clinical condition and cultures to further adjust medication if needed Thank you for this consultation we will follow the patient along with you Dictation was produced using Veri[employer] dictation software. please excuse any grammatical, word or spelling errors. Time with Patient: Greater than 30
[2024-05-19 05:48] LABS: Glucose,Whole Blood 161 mg/dL (70-110)
[2024-05-19 07:30] LABS: Anisocytosis Slight; Basophils % (A) 0 %; Eosinophils % (A) 0 %; HCT 50.1 % (39.0-53.0); Hypochromasia Marked; Lymphocytes # (A) 0.6 k/uL (1.0-4.8); Lymphocytes % (A) 4 %; MCH 22.3 pg (25.0-35.0); MCHC 29.8 g/dL (31.0-37.0); MCV 74.8 fL (80.0-100.0); Microcytosis Moderate; Monocytes # (A) 0.4 k/uL (0-1.0); Monocytes % (A) 3 %; Neutrophils # (A) 12.9 k/uL (1.3-7.7); Neutrophils % (A) 92 %; Platelet Count 226 k/uL (150-450); Poikilocytosis Slight; RDW 17.9 % (11.5-15.5)
[2024-05-19 08:15] LABS: Glucose 227 mg/dL (74-99)
[2024-05-19 08:16] LABS: ALT 20 U/L (4-49); AST 32 U/L (17-59); African American GFR (CKD) 74 (>60 ml/min/1.73 sqM); Albumin 3.4 g/dL (3.5-5.0); Alkaline Phosphatase 88 U/L (38-126); Anion Gap 11 mmol/L; Blood Urea Nitrogen 26 mg/dL (9-20); Carbon Dioxide 21 mmol/L (22-30); Chloride 101 mmol/L (98-107); Non-African American GFR(CKD) 64 (>60 ml/min/1.73 sqM); Potassium 4.4 mmol/L (3.5-5.1); Sodium 133 mmol/L (137-145); Total Bilirubin 1.3 mg/dL (0.2-1.3); Total Protein 5.8 g/dL (6.3-8.2)
--- NOTE | 2024-05-19 10:13 | CA ---
Transthoracic Echo Report Name: Perry Moore Age: 74 Gender: M : 1950 Exam Date: 05/18/2024 13:41 Exam Location: [place] [facility] Ht (in): 70 Wt (lb): 221 Ordering Physician: Falguni Melchor Attending/Referring Phys: [id number], Jill Massotherapist Nerissa Saavedra, CHELO Procedure CPT: Indications: LVF Cardiac Hx: Technical Quality: Poor Contrast 1: Definity Total Dose (mL): 2 Contrast 2: Total Dose (mL): MEASUREMENTS (Male / Female) Normal Values 2D ECHO LV Diastolic Diameter PLAX 4.6 cm 4.2 - 5.9 / 3.9 - 5.3 cm LV Systolic Diameter PLAX 2.1 cm IVS Diastolic Thickness 1.4 cm 0.6 - 1.0 / 0.6 - 0.9 cm LVPW Diastolic Thickness 1.4 cm 0.6 - 1.0 / 0.6 - 0.9 cm LV Relative Wall Thickness 0.6 RV Internal Dim ED PLAX 2.9 cm LA Systolic Diameter LX 4.3 cm 3.0 - 4.0 / 2.7 - 3.8 cm LA Volume 68.2 cm??? 18 - 58 / 22 - 52 cm??? LA Volume Index 30.3 cm???/m??? 16 - 28 cm???/m??? M-MODE Aortic Root Diameter MM 3.4 cm LA Systolic Diameter MM 4.5 cm LA Ao Ratio MM 1.3 AV Cusp Separation MM 2.1 cm DOPPLER MV Area PHT 3.0 cm??? Mitral E Point Velocity 57.4 cm/s Mitral A Point Velocity 84.8 cm/s Mitral E to A Ratio 0.7 MV Deceleration Time 255.9 ms TR Peak Velocity 356.7 cm/s TR Peak Gradient 50.9 mmHg Right Ventricular Systolic Press 65.1 mmHg FINDINGS Left Ventricle Left ventricular ejection fraction is estimated at 55--60 %. Moderately increased septal wall thickness. Normal left ventricular systolic function with no obvious regional wall motion abnormalities. Left ventricular cavity size normal. Right Ventricle Mild to moderate right ventricular dilatation. Severe pulmonary hypertension. Right ventricular systolic pressure estimated at 65mmHg. Severely reduced right ventricular global systolic function. There is right ventricular enlargement consistent with right ventricular pressure overload. Right Atrium Moderate right atrial dilatation. Left Atrium Mildly increased left atrial diameter. Mildly increased left atrial volume. Mildly increased left atrial area. Mitral Valve Structurally normal mitral valve. Trace mitral regurgitation. No mitral stenosis. Aortic Valve Trileaflet aortic valve. No aortic valve stenosis or regurgitation. Tricuspid Valve Structurally normal tricuspid valve. Mild tricuspid regurgitation. No tricuspid stenosis. Pulmonic Valve Structurally normal pulmonic valve. Trace pulmonic regurgitation. No pulmonic stenosis. Pericardium No pericardial or pleural effusion. Aorta Normal size aortic root and proximal ascending aorta. CONCLUSIONS Left ventricular ejection fraction 55-60% RVSP 65 Mild to moderate right ventricular dilation Mildly dilated left atrium Trace mitral regurgitation Mild tricuspid regurgitation No pericardial effusion Previewed by: Dr. Darryl Moore DO (Electronically Signed) Final Date: 19 May 2024 10:12
[2024-05-19 11:30] LABS: Glucose,Whole Blood 406 mg/dL (70-110)
[2024-05-19] MEDS: amLODIPine 5 MG TAB PO SCH (11:48)
--- NOTE | 2024-05-19 12:10 | PN ---
PROGRESS NOTE A 74-year-old white male, admitted with bilateral pneumonia. He was placed on his BiPAP last night, which helped him tremendously with his breathing in his sleep. His oxygen levels with his BiPAP was 96. It had dropped down to 70s and 80s on admission on 2 L of oxygen. He had a CT of the chest, which ruled out any PE, but it showed left lower lobe pneumonia as well as a right-sided pneumonia - right middle lobe, left lower lobe; pleural effusions, mediastinal adenopathy secondary to pneumonia. White count is 9.4, hemoglobin was 14.3, platelets 165. D-dimer was elevated, but negative for PE. He feels better with his breathing since admission and I repeated the COVID test, he said it was not done properly because he has symptoms of COVID. PROGNOSIS: Guarded. Continue current treatment. Ambulate as tolerated when he gets better. Continue with broad-spectrum antibiotics for his pneumonia bilaterally clinically regardless of what the procalcitonin says. MMODL / IJN: [id number] /
--- NOTE | 2024-05-19 13:07 | P.PN ---
Subjective Progress Note Date: 05/19/24 Principal diagnosis: Acute hypoxic respiratory failure Bilateral healthcare associated pneumonia Mediastinal lymphadenopathy likely reactive however lymphoproliferative disorder cannot be excluded Splenomegaly as above Chronic persistent asthma with acute exacerbation COPD with acute exacerbation Acute on chronic diastolic heart failure Coronary artery disease Hypertension hypertensive cardiovascular disease Type 2 diabetes mellitus with hyperglycemia uncontrolled Sleep disordered breathing and sleep apnea May 19, 2024 patient on 2 L nasal cannula, oxygen saturation stable in low 90s, on 3 L nasal cannula, hemodynamic status stable patient remains afebrile. Patient was able to use BiPAP machine last night. Patient remains on bronchodilators along with IV steroids and IV Zosyn blood cultures so far has been negative. Echocardiogram revealed ejection fraction of 55 to 60%, however pulmonary hypertension seen with RVSP of 65 likely associated with group 3 hypertension due to sleep disordered breathing sleep apnea and chronic lung disease 74-year-old male presented emergency department with increasing shortness of breath for over a week, seen by PMD patient received steroids shot and was sent to emergency department, on arrival she was noted to have saturation of 80% in PMDs office. On arrival his chest x-ray significant with diffuse airspace opacities with findings suggestive of atypical pneumonia versus pulmonary vascular congestion and baseline COPD. CT scan of the chest negative for pulmonary embolism, patchy airspace opacities seen more on the right side compared to left side involving right middle lobe and left lower lobe likely p neumonia basal atelectasis seen with tiny effusion along with reactive mediastinal lymphadenopathy and splenomegaly. Patient denies any fever or chills denies any sputum production has been having ongoing off-and-on cough, patient has been on IV Zosyn and Levaquin with bronchodilators and IV steroids, patient has been diuresed with IV furosemide as well oxygen saturation was 6 L nasal cannula improved to mid 90s. Labs are significant for microcytosis and mild thrombocytopenia, D-dimer mildly elevated, chemistry significant for BUN/creatinine 13/0.83 glucose is 399, influenza A as well as influenza B and COVID with RSV has been negative Prior medical history significant dyslipidemia, coronary artery disease, obstructive sleep apnea, type 2 diabetes mellitus hyperglycemia, chronic persist ent asthma, congestive heart failure, COPD, hypertension hypertensive cardiovascular disease, hearing impaired, cholecystectomy polycythemia, Objective - Vital Signs Vital signs: Vital Signs Temp 97.7 F 05/19/24 08:00 Pulse 92 05/19/24 12:05 Resp 20 05/19/24 08:00 BP 137/78 05/19/24 08:00 Pulse Ox 90 L 05/19/24 08:00 FiO2 40 05/19/24 04:15 Intake & Output 05/18/24 05/19/24 05/19/24 18:59 06:59 18:59 Intake Total 200 118 Output Total 250 Balance 200 -132 Weight 100.4 kg 100.2 kg Intake: Oral 200 118 Output: Urine 250 Other: Voiding Method Toilet # Voids 1 1 - Exam - Constitutional General appearance: average body habitus, cooperative, disheveled, mild distress - EENT Eyes: EOMI, PERRLA ENT: normal oropharynx Ears: bilateral: normal - Neck Neck: normal ROM Carotids: bilateral: upstroke normal - Respiratory Respiratory: bilateral: diminished, rales - Cardiovascular Rhythm: regular Heart sounds: normal: S1, S2 - Gastrointestinal General gastrointestinal: normal bowel sounds, soft - Integumentary Integumentary: normal turgor - Neurologic Neurologic: CNII-XII intact - Musculoskeletal Musculoskeletal: gait normal, generalized weakness, strength equal bilaterally - Psychiatric Psychiatric: A&O x's 3, appropriate affect, intact judgment & insight - Labs CBC & Chem 7: 05/19/24 07:12 05/19/24 07:12 Labs: Abnormal Lab Results - Last 24 Hours (Table) 05/18/24 05/18/24 05/19/24 Range/Units 16:43 20:15 05:47 WBC (3.8-10.6) k/uL RBC (4.30-5.90) m/uL MCV (80.0-100.0) fL MCH (25.0-35.0) pg MCHC (31.0-37.0) g/dL RDW (11.5-15.5) % Neutrophils # (1.3-7.7) k/uL Lymphocytes # (1.0-4.8) k/uL Sodium (137-145) mmol/L Carbon Dioxide (22-30) mmol/L BUN (9-20) mg/dL Glucose (74-99) mg/dL POC Glucose (mg/dL) 350 H 458 H 161 H (70-110) mg/dL Total Protein (6.3-8.2) g/dL Albumin (3.5-5.0) g/dL 12/05/24 12/05/24 12/05/24 Range/Units 07:12 07:12 11:28 WBC 14.0 H (3.8-10.6) k/uL RBC 6.70 H (4.30-5.90) m/uL MCV 74.8 L (80.0-100.0) fL MCH 22.3 L (25.0-35.0) pg MCHC 29.8 L (31.0-37.0) g/dL RDW 17.9 H (11.5-15.5) % Neutrophils # 12.9 H (1.3-7.7) k/uL Lymphocytes # 0.6 L (1.0-4.8) k/uL Sodium 133 L (137-145) mmol/L Carbon Dioxide 21 L (22-30) mmol/L BUN 26 H (9-20) mg/dL Glucose 227 H (74-99) mg/dL POC Glucose (mg/dL) 406 H (70-110) mg/dL Total Protein 5.8 L (6.3-8.2) g/dL Albumin 3.4 L (3.5-5.0) g/dL Microbiology - Last 24 Hours (Table) 05/17/24 13:36 Blood Culture - Preliminary Blood Assessment and Plan Assessment: Acute on chronic hypoxic respiratory failure Bilateral healthcare associated pneumonia Mediastinal lymphadenopathy likely reactive however lymphoproliferative disorder cannot be excluded Splenomegaly as above Pulmonary hypertension likely group 3 patient can benefit from sildenafil Chronic persistent asthma with acute exacerbation COPD with acute exacerbation Acute on chronic diastolic heart failure Coronary artery disease Hypertension hypertensive cardiovascular disease Type 2 diabetes mellitus with hyperglycemia uncontrolled Sleep disordered breathing and sleep apnea Plan: Continue gentle diuresis Broad-spectrum antibiotics IV steroids Breathing treatments Supplemental oxygen titrate down as tolerated Patient advised to continue CPAP likely will need CPAP retitration study Further recommendations pending plan of care as per clinical response the patient Follow-up CT scan for lymphadenopathy as outpatient Time with Patient: Greater than 30
--- NOTE | 2024-05-19 13:12 | P.PN ---
Subjective Progress Note Date: 05/19/24 Reason for Consult (text): Acute pulmonary edema History of present illness: This is a 74-year-old male patient of Dr. Anusha Lyman with past medical history of coronary artery disease, hypertension, dyslipidemia, diabetes mellitus type 2, obstructive sleep apnea on CPAP, GERD. We have been asked to evaluate the patient for acute pulmonary edema. Patient states that he developed shortness of breath starting on last Thursday the day before . He states he has been following a low-sodium diet and has been taking all of his medications as directed. He denies having any chest pain. No fever or chills. No lower extremity edema. He does have a cough that is nonproductive. Patient has been started on IV Lasix 40 mg every 8 hours. He states he has been urinating quite a bit. Patient is also been started on Levaquin and Zosyn for pneumonia. He states his breathing is a little bit better from yesterday. Patient was a smoker and quit in 1990. Blood pressure 145/83, heart rate 89, pulse ox 94% on 6 L nasal cannula. Patient presented with pulse ox of 80%. -EKG: Sinus rhythm with right bundle branch block -Chest x-ray: Diffuse airspace opacities correlate for pulmonary congestion versus atypical pneumonia. COPD. -CTA of the chest: No PE. Concern for pneumonia. Trace bilateral pleural effusions. Mediastinal adenopathy and splenomegaly. -Laboratory studies: WBC 9.4, hemoglobin 14.3. D-dimer 0.91. Sodium 134, potassium 3.4, BUN 13, creatinine 0.84. Influenza A, influenza B, RSV, COVID-19 not detected. proBNP 2400 -Home cardiac medications: Aspirin 81 mg daily, Coreg 6.25 mg twice daily, Lasix 40 mg twice daily, losartan 100 mg daily, potassium chloride 20 mill equivalents twice daily, simvastatin 40 mg at bedtime. -Lexiscan Cardiolite stress test performed in the office 01/29/2023: Negative stress test by EKG criteria. Normal myocardial perfusion and function. -Echocardiogram performed in the office 2012 revealed normal LV function. 05/19/2024 Patient seen and examined. His breathing is improved since he has come into the hospital. He denies chest pain and no lower extremity edema. Blood pressure 1 37/83, heart rate in the 80s and 90s, pulse ox 90% on 3 L nasal cannula. Yesterday, patient was on 6 L nasal cannula. Repeat blood work reveals WBC 14, hemoglobin 15. Sodium 133, potassium 4.4, BUN 26 creatinine 1.11. Echocardiogram reveals EF of 55 to 60%, RVSP 65, mild to moderate RV dilation, mildly dilated left atrium, trace mitral regurgitation, mild tricuspid regurgitation, no pericardial effusion. Physical examination: Gen: This is a 74-year-old male in no acute distress VS: reviewed HEENT: Head is atraumatic, normocephalic. Pupils equal, round. Sclerae is anicteric. NECK: Supple. No JVD. LUNGS: Crackles bilaterally. No intercostal retractions. HEART: Regular rate and rhythm. No murmur. ABDOMEN: Soft No tenderness. EXTREMITIES: No pedal edema. No calf tenderness. NEUROLOGICAL: Patient is awake, alert and oriented x3. Assessment: Acute hypoxic respiratory failure secondary to pneumonia with possible component of diastolic heart failure Acute diastolic heart failure, EF 55 to 60% Coronary artery disease Hypertension Dyslipidemia Diabetes mellitus type 2 Obstructive sleep apnea on CPAP Plan: Continue patient's home cardiac medications Decrease IV Lasix to 40 mg every 12 hours Monitor SAILAJA, daily weights, electrolytes and renal function Further recommendations to follow based upon clinical course Nurse practitioner note has been reviewed, I agree with documented findings and plan of care. Patient was seen and examined. Objective - Vital Signs Vital signs: Vital Signs Temp 98.3 F 05/19/24 04:00 Pulse 94 05/19/24 08:19 Resp 17 05/19/24 04:00 BP 160/94 05/19/24 06:26 Pulse Ox 96 05/19/24 04:00 FiO2 40 05/19/24 04:15 Intake & Output 05/18/24 05/19/24 05/19/24 18:59 06:59 18:59 Intake Total 200 118 Balance 200 118 Weight 100.4 kg 100.2 kg Intake: Oral 200 118 Other: Voiding Method Toilet # Voids 1 - Labs CBC & Chem 7: 05/19/24 07:12 05/19/24 07:12 Labs: Abnormal Lab Results - Last 24 Hours (Table) 05/18/24 05/18/24 05/18/24 Range/Units 06:36 11:52 11:53 WBC (3.8-10.6) k/uL RBC (4.30-5.90) m/uL MCV (80.0-100.0) fL MCH (25.0-35.0) pg MCHC (31.0-37.0) g/dL RDW (11.5-15.5) % Neutrophils # (1.3-7.7) k/uL Lymphocytes # (1.0-4.8) k/uL Sodium (137-145) mmol/L Carbon Dioxide (22-30) mmol/L BUN (9-20) mg/dL Glucose (74-99) mg/dL POC Glucose (mg/dL) 508 H* 499 H (70-110) mg/dL Hemoglobin A1c 9.7 H (<=6.0) % Total Protein (6.3-8.2) g/dL Albumin (3.5-5.0) g/dL 05/18/24 05/18/24 05/19/24 Range/Units 16:43 20:15 05:47 WBC (3.8-10.6) k/uL RBC (4.30-5.90) m/uL MCV (80.0-100.0) fL MCH (25.0-35.0) pg MCHC (31.0-37.0) g/dL RDW (11.5-15.5) % Neutrophils # (1.3-7.7) k/uL Lymphocytes # (1.0-4.8) k/uL Sodium (137-145) mmol/L Carbon Dioxide (22-30) mmol/L BUN (9-20) mg/dL Glucose (74-99) mg/dL POC Glucose (mg/dL) 350 H 458 H 161 H (70-110) mg/dL Hemoglobin A1c (<=6.0) % Total Protein (6.3-8.2) g/dL Albumin (3.5-5.0) g/dL 05/19/24 05/19/24 Range/Units 07:12 07:12 WBC 14.0 H (3.8-10.6) k/uL RBC 6.70 H (4.30-5.90) m/uL MCV 74.8 L (80.0-100.0) fL MCH 22.3 L (25.0-35.0) pg MCHC 29.8 L (31.0-37.0) g/dL RDW 17.9 H (11.5-15.5) % Neutrophils # 12.9 H (1.3-7.7) k/uL Lymphocytes # 0.6 L (1.0-4.8) k/uL Sodium 133 L (137-145) mmol/L Carbon Dioxide 21 L (22-30) mmol/L BUN 26 H (9-20) mg/dL Glucose 227 H (74-99) mg/dL POC Glucose (mg/dL) (70-110) mg/dL Hemoglobin A1c (<=6.0) % Total Protein 5.8 L (6.3-8.2) g/dL Albumin 3.4 L (3.5-5.0) g/dL Microbiology - Last 24 Hours (Table) 05/17/24 13:36 Blood Culture - Preliminary Blood
--- NOTE | 2024-05-19 14:56 | P.PN ---
Subjective Progress Note Date: 05/19/24 Principal diagnosis: Reason for follow-up is pneumonia Patient is a 74-year-old male with a past medical history significant for COPD hypertension hyperlipidemia pneumonia patient presenting to the hospital for evaluation of increasing shortness of breath that apparently has been getting worse since weekend patient was hypoxemic PCP office for the patient was sent to the ER he did have a CT of the chest did shows patchy airspace opacity within the right middle and middle left lobe concerning for pneumonia. On today's evaluation that is 05/19/2024,the patient remains to be afebrile, patient is on 3 L nasal cannula supplemental oxygen and denies any shortness of breath no chest pain or any worsening cough.Patient denies having any nausea or vomiting, no abdominal pain and no diarrhea has been reported. Patient white count is 14,000, creatinine is 1.11 blood and sputum cultures currently pending Objective - Vital Signs Vital signs: Vital Signs Temp 97.7 F 05/19/24 08:00 Pulse 94 05/19/24 08:19 Resp 20 05/19/24 08:00 BP 137/78 05/19/24 08:00 Pulse Ox 90 L 05/19/24 08:00 FiO2 40 05/19/24 04:15 Intake & Output 05/18/24 05/19/24 05/19/24 18:59 06:59 18:59 Intake Total 200 118 Balance 200 118 Weight 100.4 kg 100.2 kg Intake: Oral 200 118 Other: Voiding Method Toilet # Voids 1 - Labs CBC & Chem 7: 05/19/24 07:12 05/19/24 07:12 Labs: Abnormal Lab Results - Last 24 Hours (Table) 05/18/24 05/18/24 05/18/24 Range/Units 11:52 11:53 16:43 WBC (3.8-10.6) k/uL RBC (4.30-5.90) m/uL MCV (80.0-100.0) fL MCH (25.0-35.0) pg MCHC (31.0-37.0) g/dL RDW (11.5-15.5) % Neutrophils # (1.3-7.7) k/uL Lymphocytes # (1.0-4.8) k/uL Sodium (137-145) mmol/L Carbon Dioxide (22-30) mmol/L BUN (9-20) mg/dL Glucose (74-99) mg/dL POC Glucose (mg/dL) 508 H* 499 H 350 H (70-110) mg/dL Total Protein (6.3-8.2) g/dL Albumin (3.5-5.0) g/dL 05/18/24 05/19/24 05/19/24 Range/Units 20:15 05:47 07:12 WBC 14.0 H (3.8-10.6) k/uL RBC 6.70 H (4.30-5.90) m/uL MCV 74.8 L (80.0-100.0) fL MCH 22.3 L (25.0-35.0) pg MCHC 29.8 L (31.0-37.0) g/dL RDW 17.9 H (11.5-15.5) % Neutrophils # 12.9 H (1.3-7.7) k/uL Lymphocytes # 0.6 L (1.0-4.8) k/uL Sodium (137-145) mmol/L Carbon Dioxide (22-30) mmol/L BUN (9-20) mg/dL Glucose (74-99) mg/dL POC Glucose (mg/dL) 458 H 161 H (70-110) mg/dL Total Protein (6.3-8.2) g/dL Albumin (3.5-5.0) g/dL 05/19/24 Range/Units 07:12 WBC (3.8-10.6) k/uL RBC (4.30-5.90) m/uL MCV (80.0-100.0) fL MCH (25.0-35.0) pg MCHC (31.0-37.0) g/dL RDW (11.5-15.5) % Neutrophils # (1.3-7.7) k/uL Lymphocytes # (1.0-4.8) k/uL Sodium 133 L (137-145) mmol/L Carbon Dioxide 21 L (22-30) mmol/L BUN 26 H (9-20) mg/dL Glucose 227 H (74-99) mg/dL POC Glucose (mg/dL) (70-110) mg/dL Total Protein 5.8 L (6.3-8.2) g/dL Albumin 3.4 L (3.5-5.0) g/dL Microbiology - Last 24 Hours (Table) 05/17/24 13:36 Blood Culture - Preliminary Blood Assessment and Plan (1) Hypoxia Current Visit: No Status: Acute Code(s): R09.02 - HYPOXEMIA SNOMED Code(s): 622932280 (2) Pneumonia Current Visit: No Status: Acute Code(s): J18.9 - PNEUMONIA, UNSPECIFIED ORGANISM SNOMED Code(s): 565233413 Plan: 1patient presented to hospital with increasing shortness of breath patient also have a cough but got some yellowish sputum with evidence of multifocal infiltrate on the chest x-ray as well as CT suspicious for pneumonia likely community-acquired and a question of possible atypical pathogen. 2 urine for Legionella antigen and check mycoplasma IgM are currently pending. 3patient to continue with the Levaquin while waiting for the workup to be completed and monitor clinical course closely. Dictation was produced using [employer] dictation software. please excuse any grammatical, word or spelling errors. Time with Patient: Less than 30
[2024-05-19 17:04] LABS: Glucose,Whole Blood 343 mg/dL (70-110)
[2024-05-19] MEDS: SILDENAFIL 20 MG TAB PO SCH (17:17)
[2024-05-19 20:07] LABS: Glucose,Whole Blood 359 mg/dL (70-110)
[2024-05-19] MEDS: FUROSEMIDE 10 MG/ML 4 ML VIAL IV SCH (20:15)
--- NOTE | 2024-05-20 02:28 | PN ---
PROGRESS NOTE SUBJECTIVE: A 74-year-old white male, admitted with bilateral pneumonia. Infectious Diseases consult. Waiting for cultures to come back. Sputum cultures with acute hypoxemic respiratory failure, bilateral healthcare associated pneumonia. Reactive mediastinal lymphadenopathy, splenomegaly, chronic asthma, COPD, diastolic heart failure, acute on chronic, secondary polycythemia, hypertensive cardiovascular disease, type 2 diabetes mellitus, sleep apnea. The patient is feeling better each day. OBJECTIVE: VITAL SIGNS: Blood pressure 136/78, O2 is 98% on FiO2 of 40, temp 97.7, pulse 92, respiratory rate 20. NEUROLOGIC: Cranial nerves intact. INTEGUMENT: Normal turgor. GI: Soft. RESPIRATORY: Decreased breath sounds x4, wheezes x4. PSYCH: Fair mood and affect. White count is 14.8. PLAN: Diuresis, antibiotics, steroids, breathing treatments, oxygen, BiPAP at night which he wears at home. Continue current medications. He is improving from symptomatic pneumonia. Prognosis is guarded. He had a couple of IV antibiotics, steroids, breathing treatments for a couple of more days. MMODL / IJN: [id number] /
[2024-05-20 06:04] LABS: Glucose,Whole Blood 242 mg/dL (70-110)
[2024-05-20 08:22] LABS: Anisocytosis Slight; Basophils % (A) 0 %; Eosinophils % (A) 0 %; HCT 50.3 % (39.0-53.0); HGB 14.8 gm/dL (13.0-17.5); Hypochromasia Marked; Lymphocytes # (A) 0.5 k/uL (1.0-4.8); Lymphocytes % (A) 4 %; MCH 22.1 pg (25.0-35.0); MCHC 29.4 g/dL (31.0-37.0); MCV 75.1 fL (80.0-100.0); Microcytosis Moderate; Monocytes # (A) 0.3 k/uL (0-1.0); Monocytes % (A) 2 %; Neutrophils # (A) 12.5 k/uL (1.3-7.7); Neutrophils % (A) 93 %; Platelet Count 242 k/uL (150-450); Poikilocytosis Slight; RDW 18.1 % (11.5-15.5); WBC 13.4 k/uL (3.8-10.6)
[2024-05-20 08:44] LABS: ALT 19 U/L (4-49); AST 17 U/L (17-59); African American GFR (CKD) 75 (>60 ml/min/1.73 sqM); Albumin 3.3 g/dL (3.5-5.0); Alkaline Phosphatase 84 U/L (38-126); Anion Gap 10 mmol/L; Blood Urea Nitrogen 27 mg/dL (9-20); Calcium 8.7 mg/dL (8.4-10.2); Carbon Dioxide 24 mmol/L (22-30); Chloride 99 mmol/L (98-107); Glucose 251 mg/dL (74-99); Non-African American GFR(CKD) 65 (>60 ml/min/1.73 sqM); Potassium 4.6 mmol/L (3.5-5.1); Sodium 133 mmol/L (137-145); Total Bilirubin 1.2 mg/dL (0.2-1.3); Total Protein 5.7 g/dL (6.3-8.2)
[2024-05-20 09:36] VITALS: RESP 18
[2024-05-20 11:05] VITALS: BP 137/77; TEMP 97.4
[2024-05-20 11:44] LABS: Glucose,Whole Blood 372 mg/dL (70-110)
--- NOTE | 2024-05-20 13:09 | P.PN ---
Subjective Progress Note Date: 05/20/24 Principal diagnosis: Reason for follow-up is pneumonia Patient is a 74-year-old male with a past medical history significant for COPD hypertension hyperlipidemia pneumonia patient presenting to the hospital for evaluation of increasing shortness of breath that apparently has been getting worse since weekend patient was hypoxemic PCP office for the patient was sent to the ER he did have a CT of the chest did shows patchy airspace opacity within the right middle and middle left lobe concerning for pneumonia. On today's evaluation that is 05/20/2024, the patient continues to be afebrile, the patient is on 3 L nasal oxygen and breathing comfortably, the Pt denies having any chest pain and cough is decreased intensity, the patient denies having any abdominal pain no vomiting or any diarrhea, mention feeling better. Patient white count is 13.4 creatinine is 1.10 blood and sputum cultures currently pending Objective - Vital Signs Vital signs: Vital Signs Temp 97.4 F L 05/20/24 11:00 Pulse 88 05/20/24 11:13 Resp 18 05/20/24 11:00 BP 137/77 05/20/24 11:00 Pulse Ox 90 L 05/20/24 11:00 FiO2 40 05/20/24 04:16 Intake & Output 05/19/24 05/20/24 05/20/24 18:59 06:59 18:59 Intake Total 590 1310 570 Output Total 250 Balance 340 1310 570 Weight 97.7 kg Intake: IV 130 .9 @ 10 120 Invasive Line 1 10 Intake, IV Titration 350 200 Amount Levofloxacin 750Mg-D5w 150 Pmx 750 mg In Dextrose/ Water 1 150ml.bag @ 100 mls/hr IVPB Q24H [facility] Rx#: [id number] Piperacillin-Tazobactam 3 200 200 .375 gm In Sodium Chloride 0.9% 100 ml @ 25 mls/hr IVPB Q8H [facility] Rx#: [id number] Oral 590 960 240 Output: Urine 250 Other: Voiding Method Toilet Toilet # Voids 1 5 - Exam GENERAL DESCRIPTION: An elderly male up in the room in no distress RESPIRATORY SYSTEM: Unlabored breathing , decreased breath sounds at bases HEART: S1 S2 regular rate and rhythm , ABDOMEN: Soft , no tenderness EXTREMITIES: No edema feet - Labs CBC & Chem 7: 05/20/24 07:09 05/20/24 07:09 Labs: Abnormal Lab Results - Last 24 Hours (Table) 05/19/24 05/19/24 05/20/24 Range/Units 17:00 20:06 06:03 WBC (3.8-10.6) k/uL RBC (4.30-5.90) m/uL MCV (80.0-100.0) fL MCH (25.0-35.0) pg MCHC (31.0-37.0) g/dL RDW (11.5-15.5) % Neutrophils # (1.3-7.7) k/uL Lymphocytes # (1.0-4.8) k/uL Sodium (137-145) mmol/L BUN (9-20) mg/dL Glucose (74-99) mg/dL POC Glucose (mg/dL) 343 H 359 H 242 H (70-110) mg/dL Total Protein (6.3-8.2) g/dL Albumin (3.5-5.0) g/dL 05/20/24 05/20/24 05/20/24 Range/Units 07:09 07:09 11:42 WBC 13.4 H (3.8-10.6) k/uL RBC 6.70 H (4.30-5.90) m/uL MCV 75.1 L (80.0-100.0) fL MCH 22.1 L (25.0-35.0) pg MCHC 29.4 L (31.0-37.0) g/dL RDW 18.1 H (11.5-15.5) % Neutrophils # 12.5 H (1.3-7.7) k/uL Lymphocytes # 0.5 L (1.0-4.8) k/uL Sodium 133 L (137-145) mmol/L BUN 27 H (9-20) mg/dL Glucose 251 H (74-99) mg/dL POC Glucose (mg/dL) 372 H (70-110) mg/dL Total Protein 5.7 L (6.3-8.2) g/dL Albumin 3.3 L (3.5-5.0) g/dL Microbiology - Last 24 Hours (Table) 05/19/24 08:21 Gram Stain - Preliminary Sputum 12/03/24 13:36 Blood Culture - Preliminary Blood Assessment and Plan (1) Hypoxia Current Visit: No Status: Acute Code(s): R09.02 - HYPOXEMIA SNOMED Code( s): 852330292 (2) Pneumonia Current Visit: No Status: Acute Code(s): J18.9 - PNEUMONIA, UNSPECIFIED ORGANISM SNOMED Code(s): 413204915 Plan: 1patient presented to hospital with increasing shortness of breath patient also have a cough but got some yellowish sputum with evidence of multifocal infiltrate on the chest x-ray as well as CT suspicious for pneumonia likely community-acquired and a question of possible atypical pathogen. 2 urine for Legionella antigen and mycoplasma IgM, sputum cultures are currently pending. 3patient has shown clinical improvement, to continue with the Levaquin while waiting for the workup to be completed and monitor clinical course closely. Dictation was produced using [employer] dictation software. please excuse any grammatical, word or spelling errors. Time with Patient: Less than 30
--- NOTE | 2024-05-20 13:26 | P.PN ---
Subjective Progress Note Date: 05/20/24 Reason for Consult (text): Acute pulmonary edema History of present illness: This is a 74-year-old male patient of Dr. Anusha Lyman with past medical history of coronary artery disease, hypertension, dyslipidemia, diabetes mellitus type 2, obstructive sleep apnea on CPAP, GERD. We have been asked to evaluate the patient for acute pulmonary edema. Patient states that he developed shortness of breath starting on last Thursday the day before . He states he has been following a low-sodium diet and has been taking all of his medications as directed. He denies having any chest pain. No fever or chills. No lower extremity edema. He does have a cough that is nonproductive. Patient has been started on IV Lasix 40 mg every 8 hours. He states he has been urinating quite a bit. Patient is also been started on Levaquin and Zosyn for pneumonia. He states his breathing is a little bit better from yesterday. Patient was a smoker and quit in 1990. Blood pressure 145/83, heart rate 89, pulse ox 94% on 6 L nasal cannula. Patient presented with pulse ox of 80%. -EKG: Sinus rhythm with right bundle branch block -Chest x-ray: Diffuse airspace opacities correlate for pulmonary congestion versus atypical pneumonia. COPD. -CTA of the chest: No PE. Concern for pneumonia. Trace bilateral pleural effusions. Mediastinal adenopathy and splenomegaly. -Laboratory studies: WBC 9.4, hemoglobin 14.3. D-dimer 0.91. Sodium 134, potassium 3.4, BUN 13, creatinine 0.84. Influenza A, influenza B, RSV, COVID-19 not detected. proBNP 2400 -Home cardiac medications: Aspirin 81 mg daily, Coreg 6.25 mg twice daily, Lasix 40 mg twice daily, losartan 100 mg daily, potassium chloride 20 mill equivalents twice daily, simvastatin 40 mg at bedtime. -Lexiscan Cardiolite stress test performed in the office 01/29/2023: Negative stress test by EKG criteria. Normal myocardial perfusion and function. -Echocardiogram performed in the office 2012 revealed normal LV function. 05/19/2024 Patient seen and examined. His breathing is improved since he has come into the hospital. He denies chest pain and no lower extremity edema. Blood pressure 137/83, heart rate in the 80s and 90s, pulse ox 90% on 3 L nasal cannula. Yesterday, patient was on 6 L nasal cannula. Repeat blood work reveals WBC 14, hemoglobin 15. Sodium 133, potassium 4.4, BUN 26 creatinine 1.11. Echocardiogram reveals EF of 55 to 60%, RVSP 65, mild to moderate RV dilation, m ildly dilated left atrium, trace mitral regurgitation, mild tricuspid regurgitation, no pericardial effusion. 05/20/2024 Patient seen and examined. He states his breathing status continues to improve. He is being treated for pneumonia and he is also on IV Lasix 40 mg every 12 hours. Blood pressure 137/77, heart rate is in the 80s, pulse ox 90% on 3 L nasal cannula. Repeat blood work reveals WBC 13.4, hemoglobin 14.8, sodium 133, potassium 4.6, BUN 27 and creatinine 1.1. Physical examination: Gen: This is a 74-year-old male in no acute distress VS: reviewed HEENT: Head is atraumatic, normocephalic. Pupils equal, round. Sclerae is anicteric. NECK: Supple. No JVD. LUNGS: Crackles bilaterally. No intercostal retractions. HEART: Regular rate and rhythm. No murmur. ABDOMEN: Soft No tenderness. EXTREMITIES: No pedal edema. No calf tenderness. NEUROLOGICAL: Patient is awake, alert and oriented x3. Assessment: Acute hypoxic respiratory failure secondary to pneumonia with possible component of diastolic heart failure Acute diastolic heart failure, EF 55 to 60% Coronary artery disease Hypertension Dyslipidemia Diabetes mellitus type 2 Obstructive sleep apnea on CPAP Plan: Continue patient's home cardiac medications Transition IV Lasix to oral 40 mg twice daily which is patient's home dose Monitor SAILAJA, daily weights, electrolytes and renal function Patient is cleared for discharge from cardiology and may follow-up in the office with Dr. Anusha Lyman in 2 weeks. Nurse practitioner note has been reviewed, I agree with documented findings and plan of care. Patient was seen and examined. Objective - Vital Signs Vital signs: Vital Signs Temp 97.3 F L 05/20/24 09:31 Pulse 91 05/20/24 09:31 Resp 18 05/20/24 09:31 BP 132/79 05/20/24 09:31 Pulse Ox 90 L 05/20/24 09:31 FiO2 40 05/20/24 04:16 Intake & Output 05/19/24 05/20/2405/20/24 18:59 06:59 18:59 Intake Total 590 1310 10 Output Total 250 Balance 340 1310 10 Weight 97.7 kg Intake: IV 10 Invasive Line 1 10 Intake, IV Titration 350 Amount Levofloxacin 750Mg-D5w 150 Pmx 750 mg In Dextrose/ Water 1 150ml.bag @ 100 mls/hr IVPB Q24H [facility] Rx#: [id number] Piperacillin-Tazobactam 3 200 .375 gm In Sodium Chloride 0.9% 100 ml @ 25 mls/hr IVPB Q8H [facility] Rx#: [id number] Oral 590 960 Output: Urine 250 Other: Voiding Method Toilet Toilet # Voids 1 5 - Labs CBC & Chem 7: 05/20/24 07:09 05/20/24 07:09 Labs: Abnormal Lab Results - Last 24 Hours (Table) 05/19/24 05/19/24 05/19/24 Range/Units 11:28 17:00 20:06 WBC (3.8-10.6) k/uL RBC (4.30-5.90) m/uL MCV (80.0-100.0) fL MCH (25.0-35.0) pg MCHC (31.0-37.0) g/dL RDW (11.5-15.5) % Neutrophils # (1.3-7.7) k/uL Lymphocytes # (1.0-4.8) k/uL Sodium (137-145) mmol/L BUN (9-20) mg/dL Glucose (74-99) mg/dL POC Glucose (mg/dL) 406 H 343 H 359 H (70-110) mg/dL Total Protein (6.3-8.2) g/dL Albumin (3.5-5.0) g/dL 05/20/24 05/20/24 05/20/24 Range/Units 06:03 07:09 07:09 WBC 13.4 H (3.8-10.6) k/uL RBC 6.70 H (4.30-5.90) m/uL MCV 75.1 L (80.0-100.0) fL MCH 22.1 L (25.0-35.0) pg MCHC 29.4 L (31.0-37.0) g/dL RDW 18.1 H (11.5-15.5) % Neutrophils # 12.5 H (1.3-7.7) k/uL Lymphocytes # 0.5 L (1.0-4.8) k/uL Sodium 133 L (137-145) mmol/L BUN 27 H (9-20) mg/dL Glucose 251 H (74-99) mg/dL POC Glucose (mg/dL) 242 H (70-110) mg/dL Total Protein 5.7 L (6.3-8.2) g/dL Albumin 3.3 L (3.5-5.0) g/dL Microbiology - Last 24 Hours (Table) 05/19/24 08:21 Gram Stain - Preliminary Sputum 05/17/24 13:36 Blood Culture - Preliminary Blood
--- NOTE | 2024-05-20 15:16 | P.PN ---
Subjective Progress Note Date: 05/20/24 Principal diagnosis: Acute hypoxic respiratory failure Bilateral healthcare associated pneumonia Mediastinal lymphadenopathy likely reactive however lymphoproliferative disorder cannot be excluded Splenomegaly as above Chronic persistent asthma with acute exacerbation COPD with acute exacerbation Acute on chronic diastolic heart failure Coronary artery disease Hypertension hypertensive cardiovascular disease Type 2 diabetes mellitus with hyperglycemia uncontrolled Sleep disordered breathing and sleep apnea MayMay 20, 2024, patient seen eval examined during rounds labs reviewed medications reviewed care plan discussed, patient remains on supplemental oxygen gets short of breath on activity and exertion, ongoing cough congestion is present severity however is improved, patient remains on IV steroids breathing treatments, discussed with the family at length about pulmonary hypertension likely group 3 related to COPD as well as obstructive sleep apnea pathophysiology discussed, patient has been tolerating sildenafil fairly well blood cultures have been negative sputum culture came back positive for Priti likely contamination. Patient likely will need retitration study, currently on 05/20 by PAP each night and as needed during the day May 19, 2024 patient on 2 L nasal cannula, oxygen saturation stable in low 90s, on 3 L nasal cannula, hemodynamic status stable patient remains afebrile. Patient was able to use BiPAP machine last night. Patient remains on bronchodilators along with IV steroids and IV Zosyn blood cultures so far has been negative. Echocardiogram revealed ejection fraction of 55 to 60%, however pulmonary hypertension seen with RVSP of 65 likely associated with group 3 hypertension due to sleep disordered breathing sleep apnea and chronic lung disease 74-year-old male presented emergency department with increasing shortness of breath for over a week, seen by PMD patient received steroids shot and was sent to emergency department, on arrival she was noted to have saturation of 80% in PMDs office. On arrival his chest x-ray significant with diffuse airspace opacities with findings suggestive of atypical pneumonia versus pulmonary vascular congestion and baseline COPD. CT scan of the chest negative for pulmonary embolism, patchy airspace opacities seen more on the right side compared to left side involving right middle lobe and left lower lobe likely pneumonia basal atelectasis seen with tiny effusion along with reactive mediastinal lymphadenopathy and splenomegaly. Patient denies any fever or ch ills denies any sputum production has been having ongoing off-and-on cough, patient has been on IV Zosyn and Levaquin with bronchodilators and IV steroids, patient has been diuresed with IV furosemide as well oxygen saturation was 6 L nasal cannula improved to mid 90s. Labs are significant for microcytosis and mild thrombocytopenia, D-dimer mildly elevated, chemistry significant for BUN/creatinine 13/0.83 glucose is 399, influenza A as well as influenza B and COVID with RSV has been negative Prior medical history significant dyslipidemia, coronary artery disease, obstructive sleep apnea, type 2 diabetes mellitus hyperglycemia, chronic persistent asthma, congestive heart failure, COPD, hypertension hypertensive cardiovascular disease, hearing impaired, cholecystectomy polycythemia, Objective - Vital Signs Vital signs: Vital Signs Temp 97.4 F L 05/20/24 11:00 Pulse 88 05/20/24 11:13 Resp 18 05/20/24 11:00 BP 137/77 05/20/24 11:00 Pulse Ox 90 L 05/20/24 11:00 FiO2 40 05/20/24 04:16 Intake & Output 05/19/24 05/20/24 05/20/24 18:59 06:59 18:59 Intake Total 590 1310 1240 Output Total 250 Balance 340 1310 1240 Weight 97.7 kg Intake: IV 140 .9 @ 10 120 Invasive Line 1 20 Intake, IV Titration 350 200 Amount Levofloxacin 750Mg-D5w 150 Pmx 750 mg In Dextrose/ Water 1 150ml.bag @ 100 mls/hr IVPB Q24H [facility] Rx#: [id number] Piperacillin-Tazobactam 3 200 200 .375 gm In Sodium Chloride 0.9% 100 ml @ 25 mls/hr IVPB Q8H ME[facility] Rx#: [id number] Oral 590 960 900 Output: Urine 250 Other: Voiding Method Toilet Toilet # Voids 1 5 - Exam - Constitutional General appearance: average body habitus, cooperative, disheveled, mild distress - EENT Eyes: EOMI, PERRLA ENT: normal oropharynx Ears: bilateral: normal - Neck Neck: normal ROM Carotids: bilateral: upstroke normal - Respiratory Respiratory: bilateral: diminished, rales - Cardiovascular Rhythm: regular Heart sounds: normal: S1, S2 - Gastrointestinal General gastrointestinal: normal bowel sounds, soft - Integumentary Integumentary: normal turgor - Neurologic Neurologic: CNII-XII intact - Musculoskeletal Musculoskeletal: gait normal, generalized weakness, strength equal bilaterally - Psychiatric Psychiatric: A&O x's 3, appropriate affect, intact judgment & insight - Labs CBC & Chem 7: 05/20/24 07:09 05/20/24 07:09 Labs: Abnormal Lab Results - Last 24 Hours (Table) 05/19/24 05/19/24 05/20/24 Range/Units 17:00 20:06 06:03 WBC (3.8-10.6) k/uL RBC (4.30-5.90) m/uL MCV (80.0-100.0) fL MCH (25.0-35.0) pg MCHC (31.0-37.0) g/dL RDW (11.5-15.5) % Neutrophils # (1.3-7.7) k/uL Lymphocytes # (1.0-4.8) k/uL Sodium (137-145) mmol/L BUN (9-20) mg/dL Glucose (74-99) mg/dL POC Glucose (mg/dL) 343 H 359 H 242 H (70-110) mg/dL Total Protein (6.3-8.2) g/dL Albumin (3.5-5.0) g/dL 05/20/24 05/20/24 05/20/24 Range/Units 07:09 07:09 11:42 WBC 13.4 H (3.8-10.6) k/uL RBC 6.70 H (4.30-5.90) m/uL MCV 75.1 L (80.0-100.0) fL MCH 22.1 L (25.0-35.0) pg MCHC 29.4 L (31.0-37.0) g/dL RDW 18.1 H (11.5-15.5) % Neutrophils # 12.5 H (1.3-7.7) k/uL Lymphocytes # 0.5 L (1.0-4.8) k/uL Sodium 133 L (137-145) mmol/L BUN 27 H (9-20) mg/dL Glucose 251 H (74-99) mg/dL POC Glucose (mg/dL) 372 H (70-110) mg/dL Total Protein 5.7 L (6.3-8.2) g/dL Albumin 3.3 L (3.5-5.0) g/dL Microbiology - Last 24 Hours (Table) 05/19/24 08:21 Gram Stain - Preliminary Sputum Sputum Culture - Preliminary Priti albicans 05/17/24 13:36 Blood Culture - Preliminary Blood Assessment and Plan Assessment: Acute on chronic hypoxic respiratory failure Bilateral healthcare associated pneumonia Mediastinal lymphadenopathy likely reactive however lymphoproliferative disorder cannot be excluded Splenomegaly as above Pulmonary hypertension likely group 3 patient can benefit from sildenafil Chronic persistent asthma with acute exacerbation COPD with acute exacerbation Acute on chronic diastolic heart failure Coronary artery disease Hypertension hypertensive cardiovascular disease Type 2 diabetes mellitus with hyperglycemia uncontrolled Sleep disordered breathing and sleep apnea Plan: Continue trial with sildenafil for group 3 pulmonary hypertension Continue gentle diuresis Broad-spectrum antibiotics IV steroids, can be changed to oral at the time of discharge Breathing treatments Supplemental oxygen titrate down as tolerated Patient advised to continue CPAP likely will need CPAP retitration study Further recommendations pending plan of care as per clinical response the patient Follow-up CT scan for lymphadenopathy as outpatient Time with Patient: Greater than 30
[2024-05-20 15:22] VITALS: PULSE 84
[2024-05-20] MEDS: FUROSEMIDE 40 MG TAB PO SCH (15:50)
[2024-05-20] MEDS ORDERED: AMOXIC-POT CLAV 875-125MG 1 EACH TAB PO SCH (21:00)
--- NOTE | 2024-05-20 23:25 | PN ---
PROGRESS NOTE SUBJECTIVE: A 74-year-old white male came with bilateral pneumonia. Sputum culture shows Priti albicans. Possibly send him home on some Diflucan and Augmentin. The patient is breathing better. Every day he has been improving. OBJECTIVE: LUNGS: Transmitted upper sounds, scattered rhonchi and wheeze. HEMATOLOGY: Negative Homans. PSYCH: Fair mood and affect. PLAN: Continue with Diflucan orally for another week. Possibly send him home today if he feels better. Prognosis guarded. Ambulate as tolerated. MMODL / IJN: [id number] /
[2024-05-21] MEDS ORDERED: methylPREDNISolone 4 MG TAB TAPER PO SCH (09:00)
[2024-05-21] MEDS ORDERED: FLUCONAZOLE 100 MG TAB PO SCH (09:00)
--- NOTE | 2024-05-25 15:47 | CDI ---
Bilateral pneumonia, community-acquired is documented on the H&P. Progress Note 05/20 states: A 74-year-old white male came with bilateral pneumonia. Sputum culture shows Priti albicans. Possibly send him home on some Diflucan and Augmentin. Additional clarification regarding the type of pneumonia is requested. History/Risk Factors: This is a 74-year-old male who presents to the emergency department complaining of difficulty breathing since [place]. Patient states he went to his doctors today and his doctor gave him a shot of steroids and sent him to the emergency department. Patient states he was oxygenating at 80% and Dr. Owens's office. Clinical Indicators: WBC/Left shift: 14.0 05/19 X-ray: IMPRESSION: 1.Diffuse airspace opacities correlate for pulmonary congestion versus atypical pneumonia. Lung/Breathing assessment per consult 05/18 General appearance: Respiratory: bilateral: diminished, rales Treatment: Bronchodilators along with IV steroids and IV Zosyn O2 3L nasal cannula Breathing Tx: BiPAP Please clarify the type of pneumonia, if known: [ ] Priti albicans pneumonia [ ] Pneumonia, unspecified organism [ ] Other, please specify [ ] Unable to determine MTDD
--- NOTE | 2024-05-29 12:59 | PN ---
PROGRESS NOTE Pneumonia, unspecified organism, gram-negative, gram-positive and Priti. MMODL / IJN: [id number] /
--- NOTE | 2024-06-02 16:03 | CDI ---
Documentation Clarification Form Date: 06-02-2024 From: BRANDEN Escamilla Admit Date: 05/17/2024 03:17:00 PM Patient Name: Perry Moore Visit Number: [id number] Discharge Date: 05/20/2024 06:16:00 PM ATTENTION: The Clinical Documentation Specialists (CDI) and [facility] Coding Staff appreciate your assistance in clarifying documentation. Please respond to the clarification below the line at the bottom and electronically sign. The CDI & [facility] Coding staff will review the response and follow-up if needed. Please note: Queries are made part of the Legal Health Record. If you have any questions, please contact the author of this message via ITS. Doctor/Provider: Terrell Owens Bilateral pneumonia, community-acquired is documented on the H&P. Progress Note 05/20 states: A 74-year-old white male came with bilateral pneumonia. Sputum culture shows Priti albicans. Possibly send him home on some Diflucan and Augmentin. Additional clarification regarding the type of pneumonia is requested. History/Risk Factors: This is a 74-year-old male who presents to the emergency department complaining of difficulty breathing since . Patient states he went to his doctors today and his doctor gave him a shot of steroids and sent him to the emergency department. Patient states he was oxygenating at 80% and Dr. Owens's office. Clinical Indicators: WBC/Left shift: 14.0 05/19 X-ray: IMPRESSION: 1.Diffuse airspace opacities correlate for pulmonary congestion versus atypical pneumonia. Lung/Breathing assessment per consult 05/18 General appearance: Respiratory: bilateral: diminished, rales Treatment: Bronchodilators along with IV steroids and IV Zosyn O2 3L nasal cannula Breathing Tx: BiPAP Please clarify the type of pneumonia, if known: [ ] Priti albicans pneumonia [ ] Pneumonia, unspecified organism [ ] Other, please specify [ ] Unable to determine MTDD
== END 2024-05-20 18:16 | disposition home or self-care (01) | DRG 177 ==
LOC: EC 12:37 → 3SCARD 15:17
PROVIDERS: ADMIT Family Medicine; ATTEND Family Medicine
PROC: 5A09357 Assistance with Respiratory Ventilation, Less than 24 Consecutive Hours, Continuous Positive Airway Pressure (ICD-10-PCS; principal; 2024-05-17)
DX: B37.1 Pulmonary candidiasis (principal); I50.33 Acute on chronic diastolic (congestive) heart failure; J96.21 Acute and chronic respiratory failure with hypoxia; J45.901 Unspecified asthma with (acute) exacerbation; J15.69 Pneumonia due to other Gram-negative bacteria; J43.9 Emphysema, unspecified; D75.1 Secondary polycythemia; Y95 Nosocomial condition; G47.33 Obstructive sleep apnea (adult) (pediatric); I11.0 Hypertensive heart disease with heart failure; E78.5 Hyperlipidemia, unspecified; H91.90 Unspecified hearing loss, unspecified ear; I27.23 Pulmonary hypertension due to lung diseases and hypoxia; E11.65 Type 2 diabetes mellitus with hyperglycemia; I25.10 Atherosclerotic heart disease of native coronary artery without angina pectoris; R16.1 Splenomegaly, not elsewhere classified; I45.10 Unspecified right bundle-branch block; R59.0 Localized enlarged lymph nodes; Z79.1 Long term (current) use of non-steroidal anti-inflammatories (NSAID); Z79.51 Long term (current) use of inhaled steroids; Z79.82 Long term (current) use of aspirin; Z79.84 Long term (current) use of oral hypoglycemic drugs; Z79.899 Other long term (current) drug therapy; Z87.891 Personal history of nicotine dependence
CPT/HCPCS: 36415; 71046; 71275; 80053; 83036; 83605; 83735; 83880; 84145; 84484; 85025; 85379; 85610; 85730; 86738; 87040; 87070; 87205; 87449; 87635; 87636; 93005; 93306; 94640; 94660; 94760; 96365; 96375; 99285

== ENCOUNTER 2024-11-17 06:44 | Day surgery (SDC) | payer MEDICARE ==
[2024-11-16 09:47] VITALS: BMI 28.7
[~2024-11-17 06:44] MED LIST changes: -HEPARIN SODIUM,PORCINE 5,000 UNIT/ML 1 ML VIAL SQ ONE; -HYDROmorphone 0.5 MG/0.5 ML SYRINGE IVP PRN; -HYDROmorphone 1 MG/ML 1 ML SYRINGE IVP PRN; -LACTATED RINGERS 1,000 ML IV SCH; +LIDOCAINE 1% (10MG/ML) FOR IV START INTRADERMA PRN; -MORPHINE SULFATE 2 MG/ML SYRINGE IV PRN; -ONDANSETRON 4 MG/2 ML VIAL IVP PRN
[2024-11-17] MEDS: IV FLUID CONTINUATION 1,000 ML IV ONE (07:23)
[2024-11-17 07:26] VITALS: RESP 16; TEMP 99.4
[2024-11-17] MEDS ORDERED: PROPOFOL 10 MG/ML 20 ML VIAL IV ONE (07:41)
[2024-11-17] MEDS ORDERED: LIDOCAINE 1% INJ 10MG/ML (20 ML MDV) ONE (07:41)
[2024-11-17 07:42] LABS: Glucose,Whole Blood 144 mg/dL (70-110)
[2024-11-17] MEDS: LACTATED RINGERS 1,000 ML IV SCH (07:43)
--- NOTE | 2024-11-17 07:47 | P.GSHP ---
History of Present Illness H&P Date: 11/17/24 Chief Complaint: Weight loss, screening colonoscopy Is a 74-year-old male who has had approximately 100 pound weight loss over the last year. Patient states he was not try to lose weight. Patient has some vague abdominal discomfort. Past Medical History Past Medical History: Asthma, Blood Disorder, Diabetes Mellitus, Hearing Disorder / Deafness, Hyperlipidemia, Hypertension, Pneumonia Additional Past Medical History / Comment(s): R and L hearing difficulty, emphysema, back pain, arthritis, R ankle fracture. Polycythemia -GETS 1 PINT A MONTH REMOVED, LOSING WEIGHT WITHOUT DIETING History of Any Multi-Drug Resistant Organisms: None Reported Past Surgical History: Cholecystectomy, Heart Catheterization, Orthopedic Surgery, Prostate Surgery Additional Past Surgical History / Comment(s): stress test, L rotator cuff, L and R shoulder surgery, COLONOSCOPY, BILAT CATARACTS REMOVED WITH LENS IMPLANTS, RT KNEE SCOPE, Past Anesthesia/Blood Transfusion Reactions: No Reported Reaction Smoking Status: Former smoker - Past Family History Father Family Medical History: Cancer, Dementia, Diabetes Mellitus Additional Family Medical History / Comment(s): parkinsons, colon cancer, prostate cancer. Father at age 82 yrs. Mother Family Medical History: Dementia, Diabetes Mellitus Additional Family Medical History / Comment(s): Mother at age 87yrs. Sister(s) Family Medical History: Diabetes Mellitus Brother(s) Family Medical History: Diabetes Mellitus Medications and Allergies Home Medications Medication Instructions Recorded Confirmed Type metFORMIN HCL [Glucophage] 500 mg PO BID 10/24/13 11/17/24 History Garlic 1 tab PO DAILY 04/25/15 11/17/24 History Montelukast [Singulair] 10 mg PO DAILY 05/20/17 11/17/24 History Testosterone Cypionate 200 mg IM Q14D 05/20/17 11/17/24 History [Depo-Testosterone] Furosemide [Lasix] 40 mg PO BID 02/07/18 11/17/24 History Losartan Potassium [Cozaar] 100 mg PO DAILY 05/12/18 11/17/24 History Cholestyramine (with Sugar) 4 gm PO DAILY 02/14/22 11/17/24 History [Questran Packet] Omeprazole [PriLOSEC] 40 mg PO HS 02/14/22 11/17/24 History Aspirin EC [Ecotrin Low Dose] 81 mg PO DAILY 05/17/24 11/17/24 History Potassium Chloride ER [K-Dur 10] 20 meq PO BID 05/17/24 11/17/24 History Simvastatin [Zocor] 40 mg PO HS 05/17/24 11/17/24 History Vit C/E/Zn/Coppr/Lutein/Zeaxan 1 cap PO DAILY 05/17/24 11/17/24 History [Preservision Areds 2 Softgel] Albuterol Inhaler [Ventolin Hfa 1 - 2 puff INHALATION Q6H PRN 11/16/24 11/17/24 History Inhaler] Dapagliflozin Propanediol [Farxiga] 10 mg PO DAILY 11/16/24 11/17/24 History Ferrous Sulfate [Feosol] 325 mg PO DAILY 11/16/24 11/17/24 History Ipratropium [place] 0.06%Nasal 2 spray EA NOSTRIL DAILY 11/16/24 11/17/24 History [Atrovent Nasal 0.06%] Omalizumab [Xolair] 150 mg SQ Q14D 11/16/24 11/17/24 History Pioglitazone [Actos] 30 mg PO DAILY 11/16/24 11/17/24 History traMADol HCL 50 mg PO BID 11/16/24 11/17/24 History Allergies Allergy/AdvReac Type Severity Reaction Status Date / Time azithromycin Allergy Swelling Verified 11/17/24 07:28 Surgical - Exam Vital Signs Temp Pulse Resp BP Pulse Ox 99.4 F 85 16 137/85 93 L 11/17/24 07:24 11/17/24 07:24 11/17/24 07:24 11/17/24 07:24 11/17/24 07:24 - General well developed, well nourished, no distress - Eyes PERRL - ENT normal pinna - Neck no masses - Respiratory normal expansion - Cardiovascular Rhythm: regular - Abdomen Abdomen: soft, non tender Results - Labs Abnormal Lab Results - Last 24 Hours (Table) 11/17/24 Range/Units 07:41 POC Glucose (mg/dL) 144 H (70-110) mg/dL Assessment and Plan Plan: Abdominal pain, weight loss, will perform EGD and screening colonoscopy.
--- NOTE | 2024-11-17 08:12 | P.OP ---
Date of Procedure: 11/17/24 Preoperative Diagnosis: Weight loss Screening colonoscopy Abdominal pain Postoperative Diagnosis: Antral gastritis Mild diverticulosis Procedure(s) Performed: Colonoscopy Anesthesia: MAC Surgeon: Osmar Thomas Pathology: other (Antrum) Condition: stable Disposition: PACU Description of Procedure: The patient was placed on the endoscopy table in the lateral position. He received IV sedation. Digital rectal exam was performed performed which revealed no abnormalities. The flexible colonoscope was then placed patient anus passed throughout the entire colon. The ileocecal valve was visualized. The cecum, ascending and transverse colon normal. The descending sigmoid colon there is mild diverticular changes. The scope was then brought back to the rectum this appeared normal. Scope withdrawn the patient. Next the Gastroflux oropharynx passed in the esophagus into the stomach. Scope was placed through the pylorus. The 1st and 2nd portion of the duodenum appeared normal. Scope was Ruback the antrum this appeared mildly inflamed. A biopsy was performed. The scope was retroflexed Nellie stomach. Normal. The GE junction was at 40 seconds. The distal esophagus appeared normal to the proximal esophagus appeared normal. Scope withdrawn the patient.
[2024-11-17 08:31] VITALS: BP 119/80; PULSE 97
== END 2024-11-17 09:01 | disposition home or self-care (01) ==
LOC: ORWHC2ENDO 06:44
PROVIDERS: ATTEND Surgery
DX: Z12.11 Encounter for screening for malignant neoplasm of colon (principal); K57.30 Diverticulosis of large intestine without perforation or abscess without bleeding; K29.50 Unspecified chronic gastritis without bleeding; I11.0 Hypertensive heart disease with heart failure; I50.9 Heart failure, unspecified; E11.9 Type 2 diabetes mellitus without complications; E78.5 Hyperlipidemia, unspecified; G47.33 Obstructive sleep apnea (adult) (pediatric); J44.89 Other specified chronic obstructive pulmonary disease; D75.1 Secondary polycythemia; Z79.899 Other long term (current) drug therapy
CPT/HCPCS: 88305; 45378; 43239; J2003; J2704